=== PATIENT | female | born 1965 | race Caucasian/White ===

== ENCOUNTER 2017-12-14 16:17 | Inpatient (IN) ==
[2017-12-14] MEDS ORDERED: Sod Chloride 0.9% Inj 1,000 ML IV.CONT SCH (16:30)
--- NOTE | 2017-12-14 16:38 | ED ---
HPI General Chief Complaint: Stroke Alert Stated Complaint: Stroke Alert Time Seen by Provider: 12/14/17 16:19 Source: EMS Mode of arrival: EMS Limitations: altered mental status History of Present Illness HPI Narrative: Patient is a 52-year-old female came in as a stroke alert 4:19 PM. As per EMS report initial call was at 15:39 and they arrived on the scene at 1603 with a called a stroke alert. As per EMS report the patient was seen last normal at 3 PM went to sleep and at around 330 her had a large noise and grunting went into check on her and she was on the floor not moving not responding with flaccid right upper and lower extremities. As per EMS fire rescue on arrival got a blood pressure of 252/180 and when EMS repeated it was 280/200. The patient is not on anticoagulation and has a history of hypertension. Onset (ago): minute(s) (40) Time: 15:39 Last Observed Normal: 15:00 Timing confirmed by: spouse Location: speech, right arm, right leg and altered History of same: No Severity: severe On Anticoagulants: No Related Data Home Medications Medication Instructions Recorded Confirmed No Known Home Medications 12/14/17 12/14/17 Allergies Allergy/AdvReac Type Severity Reaction Status Date / Time No Known Allergies Allergy Unverified 12/14/17 16:23 Review of Systems ROS Unobtainable unobtainable due to mental status PMFSH Medical History Medical History HTN (hypertension) (Acute) Surgical History Surgical History Previous section (Acute) Social History Social History Substance History: No History of Abuse Second Hand Smoke Exposure: No Smoking Status: Never smoker How Often Do You Have a Drink Containing Alcohol: Never Recent Travel in [facility] within the Last 8 Weeks: No Recent Out of Country Travel within the Last 8 Weeks: No Exam Narrative Exam Narrative: GENERAL: Patient opens eyes to verbal command but does not follow any instructions. Forced gaze to the left. SKIN: Focused skin assessment warm/dry. HEAD: Atraumatic. Normocephalic. EYES: PERRLA. No scleral icterus. No injection or drainage. ENT: No nasal bleeding or discharge. Mucous membranes pink and moist. NECK: Trachea midline. No JVD. CARDIOVASCULAR: Regular rate and rhythm. No murmur appreciated. RESPIRATORY: No accessory muscle use. Clear to auscultation. Breath sounds equal bilaterally. GASTROINTESTINAL: Abdomen soft, non-tender, nondistended. Hepatic and splenic margins not palpable. MUSCULOSKELETAL: No obvious deformities. No clubbing. No cyanosis. No edema. PSYCHIATRIC: Appropriate mood and affect; insight and judgment normal. Neuro General: obtunded Cranial Nerves: PERRL and other (LEFT FACIAL DROOP) Speech: expressive aphasia and receptive aphasia Motor: other (FLACID RIGHT UPPER AND LOWER EXTREMITIES) Sensory Exam: other (responds to painful stimuli on B/L Lower extremites) DTR's: Rt Patellar: 4+ and Lt Patellar: 4+ Plantar Reflexes: Downgoing: bilateral Comatose Patient: no decerebrate rigidity and hand drop from over head - strikes face (RUE) Other: Patient with a fixed gaze to the left not crossing the midline left facial paresis. Right upper and lower extremity flaccid but responding to painful stimuli. Patient with receptive and expressive aphasia does open eyes with loud noises but does not respond to commands when asked to blink. Course Reevaluation(s) Reevaluation #1: The patient has returned from the CT suite will cancel CT angiogram appears she has large bleed associated with hypertension. Cardene drip has been already ordered and were initiating treatment. She does move all extremities at this time including the right upper lower extremity that were previously flaccid still does not cross the midline on her gaze and has a receptive and expressive aphasia. Discuss with neurology and neurosurgery. We will start the patient on mannitol. and family at bedside aware of condition and interventions. Time: 16:50 Reevaluation #2: Blood pressure at this time is Time: 17:30 Consultations Consultation #1: Neurology professional tutor Dr. Wagner returned the call. Recommend CT angios which have already been ordered. Agrees with Cardene drip if blood pressures truly elevated as per EMS. Reducing Recommends 200 cc bolus and laying her flat in the bed Time: 16:37 Consultation #2: Neurosurgery was consulted and called us back. Recommend 25 mg of IV mannitol and reduction of her blood pressure as well as ICU admission. Time: 16:50 Initial Documented Vital Signs Temperature 99.2 F 12/14/17 16:18 Pulse Rate 119 H 12/14/17 16:18 Respiratory Rate 26 H 12/14/17 16:18 Blood Pressure 260/140 H 12/14/17 16:18 Last Documented Vital Signs Temperature 99.2 F 12/14/17 16:19 Pulse Rate 94 H 12/14/17 19:36 Respiratory Rate 20 12/14/17 19:36 Blood Pressure 149/65 H 12/14/17 19:36 Pulse Oximetry 97 12/14/17 18:00 Critical Care Time Critical Care Time: Yes Total Critical Care Time: 75 Attestation: Aggregate critical care time was 75 minutes. Time to perform other separately billable procedures was not included in the critical care time. My time did not include minutes spent treating any other patients simultaneously or on activities that did not directly contribute to the patient's treatment. The services I provided to this patient were to treat and/or prevent clinically significant deterioration that could result in: . Permanent disability I provided critical care services requiring my management, as noted below: Chart data review, documentation time, medication orders and management, vital sign assessments/reviewing monitor data, ordering and reviewing lab tests, ordering and interpreting/reviewing x-rays and diagnostic studies, care of the patient and discussion of the patient with the admitting physicians. NIH Stroke Scale NIH Stroke Scale Level of Consciousness: 3-Coma / Unresponsive Orientation Questions: 2-Neither task correct Responds to Commands: 2-Neither task correct Gaze Eye Movement: 1-Partial gaze palsy (To the left) Visual Guy: 0-No visual field defect Facial Movement: 2-Partial facial palsy Motor Functions Arm LEFT: 0-No drift Motor Functions Arm RIGHT: 3-No effort against gravity Motor Functions Leg LEFT: 0-No drift Motor Functions Leg RIGHT: 0-No drift Limb Ataxia: 0-No ataxia Sensory Loss: 0-No sensory loss Best Language: 3-Mute or global aphasia Articulation: 2-Severe dysarthria Extinction or Inattention Sensory: 2-Loss 2 modalities Total: 20 Medical Decision Making MDM Narrative Medical decision making narrative: Patient with left cerebral bleeding stroke secondary to hypertensive crisis. She was started on Cardene drip with initial improvement but her blood pressures started going up again and she was given IV push of labetalol 20 mg with repeat blood pressure of 149/65 at 7:36 PM. Neurology and neurosurgery were consulted. Neurosurgery recommended mannitol IV push and I admission to the ICU. She is obviously not a TPA candidate having a hypertensive crisis and bleed. Her neurologic deficits did improve with mannitol and reduction of her blood pressure. The patient initially was not crossing the midline had a forced gaze to the left however she started turning to the right and also started moving all extremities. Still aphasic both expression and receptive however she did at some point follow commands and close eyes when prompted. Family at bedside aware of current condition. Patient will be admitted to the ICU for further evaluation and treatment. Lab Data Lab results reviewed: Yes I reviewed the patient's lab results. Result diagrams: 12/14/17 16:25 12/14/17 16:25 Lab Results 12/14/17 12/14/17 12/14/17 Range/Units 16:25 16:25 16:45 WBC 9.3 (4.0-11.0) th/mm3 RBC 5.09 (4.00-5.30) mil/mm3 Hgb 11.0 L (11.6-15.3) gm/dL POC Hgb (Calc) 11.6 (11.6-15.3) g/dL Hct 34.0 L (35.0-46.0) % POC Hct 34.0 L (35-46.0) % MCV 66.9 L (80.0-100.0) fL MCH 21.6 L (27.0-34.0) pg MCHC 32.3 (32.0-36.0) % RDW 18.2 H (11.6-17.2) % Plt Count 288 (150-450) th/mm3 MPV 7.4 (7.0-11.0) fL Neut % (Auto) 69.5 (16.0-70.0) % Lymph % (Auto) 18.0 (9.0-44.0) % [place] % (Auto) 8.3 H (0.0-8.0) % Eos % (Auto) 3.6 (0.0-4.0) % Baso % (Auto) 0.6 (0.0-2.0) % Neut # (Auto) 6.5 (1.8-7.7) th/mm3 Lymph # (Auto) 1.7 (1.0-4.8) th/mm3 [place] # (Auto) 0.8 (0.0-0.9) th/mm3 Eos # (Auto) 0.3 (0.0-0.4) th/mm3 Baso # (Auto) 0.1 (0.0-0.2) th/mm3 WBC Differential . Differential Comment Auto diff final PT (9.8-11.6) sec INR Ratio APTT (24.3-30.1) sec POC Sodium 142 (137-144) mmol/L Sodium 140 (136-145) meq/L POC Potassium 3.4 L (3.6-5.0) mmol/L Potassium 3.4 L (3.5-5.1) meq/L POC Chloride 105 (102-111) mmol/L Chloride 106 (98-107) meq/L Carbon Dioxide 25.2 (21.0-32.0) meq/L Anion Gap 9 (5-15) meq/L POC BUN 11 (5-21) mg/dL BUN 11 (7-18) mg/dL Creatinine 1.08 H (0.50-1.00) mg/dL POC Creatinine 0.9 (0.6-1.3) mg/dL Estimated GFR 53 L (>89) mL/min POC Glucose 132 H 142 H (68-110) mg/dL Random Glucose 125 H (74-106) mg/dL Calcium 8.6 (8.5-10.1) mg/dL Total Bilirubin 0.4 (0.2-1.0) mg/dL AST 32 (15-37) U/L ALT 28 (10-53) U/L Alkaline Phosphatase 80 (45-117) U/L Total Creatine Kinase 120 (26-192) U/L CK-MB (CK-2) 1.1 (0.5-3.6) ng/mL Troponin I 0.04 (0.02-0.05) ng/mL Total Protein 8.2 (6.4-8.2) g/dL Albumin 3.8 (3.4-5.0) g/dL Urine Color (Yellw/Straw) Urine Clarity (Clear) Urine pH (5.0-8.5) Ur Specific [place] (1.002-1.035) Urine Protein (Neg-Trace) mg/dL Urine Glucose (UA) (Negative) mg/dL Urine Ketones (Negative) mg/dL Urine Occult Blood (Negative) Urine Nitrate (Negative) Urine Bilirubin (Negative) Urine Urobilinogen (Less than 2) mg/dL Ur Leukocyte Esterase (Negative) Urine RBC (0-3) /hpf Urine WBC (0-5) /hpf Hyaline Casts (0-3) /lpf Urine Mucus (Occasional) /lpf Micro UA Comment Urine Culture Comments 12/14/17 12/14/17 Range/Units 17:09 17:09 WBC (4.0-11.0) th/mm3 RBC (4.00-5.30) mil/mm3 Hgb (11.6-15.3) gm/dL POC Hgb (Calc) (11.6-15.3) g/dL Hct (35.0-46.0) % POC Hct (35-46.0) % MCV (80.0-100.0) fL MCH (27.0-34.0) pg MCHC (32.0-36.0) % RDW (11.6-17.2) % Plt Count (150-450) th/mm3 MPV (7.0-11.0) fL Neut % (Auto) (16.0-70.0) % Lymph % (Auto) (9.0-44.0) % [place] % (Auto) (0.0-8.0) % Eos % (Auto) (0.0-4.0) % Baso % (Auto) (0.0-2.0) % Neut # (Auto) (1.8-7.7) th/mm3 Lymph # (Auto) (1.0-4.8) th/mm3 [place] # (Auto) (0.0-0.9) th/mm3 Eos # (Auto) (0.0-0.4) th/mm3 Baso # (Auto) (0.0-0.2) th/mm3 WBC Differential Differential Comment PT 10.2 (9.8-11.6) sec INR 1.0 Ratio APTT 26.5 (24.3-30.1) sec POC Sodium (137-144) mmol/L Sodium (136-145) meq/L POC Potassium (3.6-5.0) mmol/L Potassium (3.5-5.1) meq/L POC Chloride (102-111) mmol/L Chloride (98-107) meq/L Carbon Dioxide (21.0-32.0) meq/L Anion Gap (5-15) meq/L POC BUN (5-21) mg/dL BUN (7-18) mg/dL Creatinine (0.50-1.00) mg/dL POC Creatinine (0.6-1.3) mg/dL Estimated GFR (>89) mL/min POC Glucose (68-110) mg/dL Random Glucose (74-106) mg/dL Calcium (8.5-10.1) mg/dL Total Bilirubin (0.2-1.0) mg/dL AST (15-37) U/L ALT (10-53) U/L Alkaline Phosphatase (45-117) U/L Total Creatine Kinase (26-192) U/L CK-MB (CK-2) (0.5-3.6) ng/mL Troponin I (0.02-0.05) ng/mL Total Protein (6.4-8.2) g/dL Albumin (3.4-5.0) g/dL Urine Color Straw (Yellw/Straw) Urine Clarity Clear (Clear) Urine pH 6.0 (5.0-8.5) Ur Specific [place] 1.008 (1.002-1.035) Urine Protein 100 H (Neg-Trace) mg/dL Urine Glucose (UA) 50 (Negative) mg/dL Urine Ketones Negative (Negative) mg/dL Urine Occult Blood Small H (Negative) Urine Nitrate Negative (Negative) Urine Bilirubin Negative (Negative) Urine Urobilinogen Less than 2 (Less than 2) mg/dL Ur Leukocyte Esterase Negative (Negative) Urine RBC 1 (0-3) /hpf Urine WBC 1 (0-5) /hpf Hyaline Casts 1 (0-3) /lpf Urine Mucus Few H (Occasional) /lpf Micro UA Comment Cath-culture not ind Urine Culture Comments Cath-cult not ind Imaging Data Radiologist's impression: Chest X-Ray 12/14/17 16:19 CONCLUSION: No acute cardiopulmonary disease. Head CT 12/14/17 16:19 CONCLUSION: 1. Acute high density intraparenchymal hemorrhage centered in the left basal ganglia with mass effect and midline shift. Report was called by [Dr. Andres to Dr. Larsen at 1641 hours. ] Discharge Plan Discharge Disposition Patient Disposition: 30 Still Patient Discharge Condition Condition: Critical Discharge Details Diagnosis: Intraparenchymal hemorrhage of brain, Hypertensive crisis, Stroke, hemorrhagic Physicians Team ED Provider: Nahun Larsen Primary Care Provider: Shantell Riley Attending Provider: Juan J Hyde Other Providers: Raghavendra Wagner Discharge Interventions Interventions: Vital Signs Last Done: 12/14/17 17:05 Status ED Status: Admitted Patient
--- NOTE | 2017-12-14 16:49 | CT ---
EXAM DATE: 12/14/2017 4:38 PM EDT AGE/SEX: 52 years / Female INDICATIONS: Stroke Alert. Right sided weakness. CLINICAL DATA: This is the patient's initial encounter. Patient reports that signs and symptoms have been present for 1 day and indicates a pain score of 10/10. MEDICAL/SURGICAL HISTORY: Non-responsive. Non-responsive. RADIATION DOSE: 35.82 CTDI (mGy) COMPARISON: No prior exams available for comparison. TECHNIQUE: CT of the head without contrast. Using automated exposure control and adjustment of the mA and/or kV according to patient size, radiation dose was kept as low as reasonably achievable to ob tain optimal diagnostic quality images. DICOM format image data is available electronically for revi ew and comparison. FINDINGS: There is no acute high density intraparenchymal hemorrhage centered in the left basal ganglia measuri ng up to 3.9 x 2.5 cm in diameter with mild surrounding edema. There is mass effect and mild midline shift to the right of approximately 6 mm. There is mild effacement of the right lateral ventricle. Th e posterior fossa and brainstem appear grossly intact. Visualization is limited by streak and motion artifact. The bone windows demonstrate no evidence of underlying abnormality. CONCLUSION: 1. Acute high density intraparenchymal hemorrhage centered in the left basal ganglia with mass effec t and midline shift. Report was called by [Dr. Andres to Dr. Larsen at 1641 hours. ] Electronically signed by: Colton Andres MD 12/14/2017 4:48 PM EDT
[2017-12-14 16:51] LABS: Baso # (Auto) 0.1 th/mm3 (0.0-0.2); Baso % (Auto) 0.6 % (0.0-2.0); Eos # (Auto) 0.3 th/mm3 (0.0-0.4); Eos % (Auto) 3.6 % (0.0-4.0); Lymph # (Auto) 1.7 th/mm3 (1.0-4.8); Mean Corpuscular HGB Conc 32.3 % (32.0-36.0); Mean Corpuscular Hemoglobin 21.6 pg (27.0-34.0); Mean Corpuscular Volume 66.9 fL (80.0-100.0); Mean Platelet Volume 7.4 fL (7.0-11.0); Mono # (Auto) 0.8 th/mm3 (0.0-0.9); Mono % (Auto) 8.3 % (0.0-8.0); Neut # (Auto) 6.5 th/mm3 (1.8-7.7); Neut % (Auto) 69.5 % (16.0-70.0); Platelet Count 288 th/mm3 (150-450); Red Blood Count 5.09 mil/mm3 (4.00-5.30); Red Cell Distribution Width 18.2 % (11.6-17.2); White Blood Count 9.3 th/mm3 (4.0-11.0)
[2017-12-14 17:00] LABS: Alanine Aminotransferase 28 U/L (10-53); Albumin 3.8 g/dL (3.4-5.0); Anion Gap 9 meq/L (5-15); Aspartate Aminotransferase 32 U/L (15-37); Blood Urea Nitrogen 11 mg/dL (7-18); Calcium 8.6 mg/dL (8.5-10.1); Carbon Dioxide 25.2 meq/L (21.0-32.0); Chloride 106 meq/L (98-107); Glomerular Filtration Rate 53 mL/min (>89); Glucose,Random 125 mg/dL (74-106); Potassium 3.4 meq/L (3.5-5.1); Sodium 140 meq/L (136-145)
[2017-12-14] MEDS ORDERED: Morphine Inj 4 MG/ML Vial IV.PUSH PRN (17:00)
[2017-12-14] MEDS ORDERED: Bisacodyl 10 MG Supp RECTAL PRN (17:00)
[2017-12-14 17:04] LABS: Alkaline Phosphatase 80 U/L (45-117); Creatine Kinase 120 U/L (26-192); Total Protein 8.2 g/dL (6.4-8.2); Troponin I 0.04 ng/mL (0.02-0.05)
--- NOTE | 2017-12-14 17:16 | P.HPCC ---
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 She has been previously healthy otherwise but yesterday developed some right-sided weakness and difficulty finding words. On arrival to the emergency department she was crisis with systolic blood pressure greater than 220 and CAT scan of the head revealed a 3.9 cm left-sided parenchymal brain hemorrhage based in the basal ganglia. Blood pressure was immediately controlled with intravenous Cardene infusion and she was transferred to the intensive care unit for further evaluation. - Diagnosis (1) Intraparenchymal hemorrhage of brain (2) Hypertensive crisis Inpatient Certification: Patient will require hospitalization for at least 3 days. Estimated Total Length of Stay (Days): 5 Plans for Post Hospital Care: Not yet determined Review of Systems Unable to obtain due to impaired level of consciousness. unobtainable due to endotracheal tube PMFSH - History History Provided By: Family Member, Hand Sizer / EMT - Medical / Surgical Hx Neg / Unobtainable Medical Problems Denied: Unable to Obtain - Medical History Medical History: Medical History (Last Reviewed 12/24/17 @ 07:47 by Carlee Mancia) HTN (hypertension) - Surgical History Surgical History: Surgical History (Last Reviewed 12/24/17 @ 07:47 by Carlee Mancia) Previous section - Family History Family History: Family History (Last Updated 12/24/17 @ 15:23 by Zandra Flores MD) Mother Family history of hypertension Brother Melanoma Other Family history unobtainable - Social History I have reviewed the patient's Social History: Yes - Tobacco History Second Hand Smoke Exposure: No Tobacco Use In Past 30 Days: No Smoking Status: Never smoker - Alcohol History How Often Do You Have a Drink Containing Alcohol: Never - Substance Use History Substance History: No History of Abuse - Travel History History of Recent Travel: No Recent Travel in the [place] Within the Last 8 Weeks: No Recent Travel Out of the Country Within the Last 8 Weeks: No - Immunization History Tetanus Immunization: Never Vaccinated Hx Influenza Vaccine This Season: Unable to Assess Pediatric Immunizations Up to Date: Yes Medications and Allergies Active Medications: Active Medications Al Hydroxide/Mg Hydroxide (Milk Of Magnesia Liq) 30 ml PO Q12H PRN PRN Reason: Mild Constipation Albuterol (Duoneb Neb (Prn)) 1 ampul NEB Q6HR NEB [facility] Bisacodyl (Dulcolax Supp) 10 mg RECTAL DAILY PRN PRN Reason: SEVERE CONSITIPATION Chlorhexidine Gluconate (Chlorhexidine 2% Cloth) 3 pack TOPICAL DAILY@0400 JOAO Stop: 12/20/17 03:59 Chlorhexidine Gluconate (Chlorhexidine 2% Cloth) 3 pack TOPICAL DAILY@0400 PRN PRN Reason: Extra cloth needed Stop: 12/20/17 03:59 Famotidine (Pepcid Pf Inj) 20 mg IV.PUSH Q12HR JOAO Sodium Chloride (Ns Inj) 1,000 mls @ 70 mls/hr IV.CONT .[id number] JOAO Stop: 12/15/17 06:47 Nicardipine HCl 25 mg/ Sodium (Chloride) 250 mls @ 50 mls/hr IV.CONT TITRATE PRN; Protocol PRN Reason: Per Protocol Sodium Chloride (Ns Inj) 1,000 mls @ 30 mls/hr IV.CONT .Q24H JOAO Lactulose (Lactulose Liq) 30 ml PO DAILY PRN PRN Reason: SEVERE CONSITIPATION Morphine Sulfate (Morphine Inj) 2 mg IV.PUSH Q2H PRN PRN Reason: PAIN SCALE 6 TO 10 Ondansetron HCl (Zofran Inj) 4 mg IV.PUSH Q6H PRN PRN Reason: NAUSEA OR VOMITING Senna/Docusate Sodium (Cassidy-Colace) 1 tab PO BID [facility] Sennosides (Senokot) 17.2 mg PO Q12H PRN PRN Reason: Moderate Constipation Sodium Chloride (Ns Flush) 2 ml IV.FLUSH PRN PRN PRN Reason: FLUSH AFTER USING IV ACCESS Sodium Chloride (Ns Flush) 2 ml IV.FLUSH BID [facility] Sodium Chloride (Ns Flush) 2 ml IV.FLUSH PRN PRN PRN Reason: FLUSH AFTER USING IV ACCESS Allergies Allergy/AdvReac Type Severity Reaction Status Date / Time No Known Allergies Allergy Unverified 12/14/17 16:23 Home Medications Medication Instructions Recorded Confirmed Type No Known Home Medications 12/14/17 12/14/17 History Results - Labs CBC & Chem 7: 12/26/17 05:10 12/26/17 05:10 Labs: Short CBC 12/14/17 Range/Units 16:25 WBC 9.3 (4.0-11.0) th/mm3 Hgb 11.0 L (11.6-15.3) gm/dL Hct 34.0 L (35.0-46.0) % Plt Count 288 (150-450) th/mm3 BMP 12/14/17 16:25 Sodium 140 Potassium 3.4 L Chloride 106 Carbon Dioxide 25.2 BUN 11 Creatinine 1.08 H Calcium 8.6 Cardiac Enzymes 12/14/17 Range/Units 16:25 Total Creatine Kinase 120 (26-192) U/L Troponin I 0.04 (0.02-0.05) ng/mL Liver Function 12/14/17 Range/Units 16:25 Total Bilirubin 0.4 (0.2-1.0) mg/dL AST 32 (15-37) U/L ALT 28 (10-53) U/L Alkaline Phosphatase 80 (45-117) U/L Albumin 3.8 (3.4-5.0) g/dL - Imaging Impressions Head CT 12/14/17 16:19 CONCLUSION: 1. Acute high density intraparenchymal hemorrhage centered in the left basal ganglia with mass effect and midline shift. Report was called by [Dr. Andres to Dr. Larsen at 1641 hours. ] Exam Vital signs: Vital Signs 12/14/17 16:18 12/14/17 16:19 Temperature 99.2 F Pulse Rate 119 H Respiratory Rate 26 H Blood Pressure 260/140 H Pulse Oximetry 98 Intake & Output 12/13/17 12/14/17 12/14/17 18:59 06:59 18:59 Weight 94.055 kg Narrative: Physical examination: Head: Normocephalic, atraumatic. Neck: Supple, airway patent, no obstruction. Lungs: Clear, no adventitious sounds, comfortable respiratory pattern Heart: Normal S1-S2, 3/6 systolic murmur heard along the left sternal border and into the 8. No JVD. Abdomen: Large, soft, no guarding, bowel sounds are present. Extremities: Warm, well-perfused, no peripheral edema. Neuro: Pupils are 2 mm in both react to light. Tracks with eyes. Moves 4 limbs though weaker on the right. Caprini VTE Risk Assessment Caprini VTE Risk Assessment: Moderate/High Risk (score >= 2) VTE Pharmacological Exception Reason: Active bleeding Caprini Risk Assessment Model: Point Value = 1 Point Value = 2 Point Value = 3 Point Value = 5 Age 41-60 Minor surgery BMI > 25 kg/m2 Swollen legs Varicose veins or History of unexplained or recurrent spontaneous Oral contraceptives or hormone replacement Sepsis (< 1 month) Serious lung disease, including pneumonia (< 1 month) Abnormal pulmonary function Acute myocardial infarction Congestive heart failure (< 1 month) History of inflammatory bowel disease Medical patient at bed rest Age 61-74 Arthroscopic surgery Major open surgery (> 45 min) Laparoscopic surgery (> 45 min) Malignancy Confined to bed (> 72 hours) Immobilizing plaster cast Central venous access Age >= 75 History of VTE Family history of VTE Factor V Leiden Prothrombin [id number] Lupus anticoagulant Anticardiolipin antibodies Elevated serum homocysteine Heparin-induced thrombocytopenia Other congenital or acquired thrombophilia Stroke (< 1 month) Elective arthroplasty Hip, pelvis, or leg fracture Acute spinal cord injury (< 1 month) Prophylaxis Regimen: Total Risk Factor Score Risk Level Prophylaxis Regimen 0-1 Low Early ambulation 2 Moderate Order ONE of the following: *Sequential Compression Device (SCD) *Heparin 5000 units SQ BID 3-4 Higher Order ONE of the following medications: *Heparin 5000 units SQ TID *Enoxaparin/Lovenox 40 mg SQ daily (WT < 150 kg, CrCl > 30 mL/min) *Enoxaparin/Lovenox 30 mg SQ daily (WT < 150 kg, CrCl > 10-29 mL/min) *Enoxaparin/Lovenox 30 mg SQ BID (WT < 150 kg, CrCl > 30 mL/min) AND/OR *Sequential Compression Device (SCD) 5 or more Highest Order ONE of the following medications: *Heparin 5000 units SQ TID (Preferred with Epidurals) *Enoxaparin/Lovenox 40 mg SQ daily (WT < 150 kg, CrCl > 30 mL/min) *Enoxaparin/Lovenox 30 mg SQ daily (WT < 150 kg, CrCl > 10-29 mL/min) *Enoxaparin/Lovenox 30 mg SQ BID (WT < 150 kg, CrCl > 30 mL/min) AND *Sequential Compression Device (SCD) Assessment and Plan - Problem List (1) Intraparenchymal hemorrhage of brain Code(s): I61.9 - Nontraumatic intracerebral hemorrhage, unspecified Status: Acute (2) Hypertensive crisis Code(s): I16.9 - Hypertensive crisis, unspecified Status: Acute - Assessment and Plan Plan: Plan: 1. Maintain BP < 140/90 with cardene infusion. 2. Serial neurologic exam. 3. CTA brain. 4. Pepcid for GI ulcer prophylaxis. 5. Chemical DVT prophylaxis contraindicated because of active bleed. 6. NIH stroke scale. 7. Swallow evaluation.. 8. PT, OT consult. 9. Supplemental O2 to maintain sats greater than 95%. Overall impression: Acute hypertensive intraparenchymal hemorrhage in the left basal ganglia. This is a large bleed and a particularly worrisome spot and her prognosis is guarded. We will keep good immediate control of her blood pressure , follow her airway and swallowing closely, and review with the neurologic specialties. Critical care 40 minutes Code Status: DNR Discussed Condition With: Nurse
[2017-12-14 17:17] LABS: Creatine Kinase MB 1.1 ng/mL (0.5-3.6)
--- NOTE | 2017-12-14 17:19 | XR ---
EXAM DATE: 12/14/2017 5:15 PM EDT AGE/SEX: 52 years / Female INDICATIONS: Right-sided weakness and intracranial hemorrhage. CLINICAL DATA: This is the patient's initial encounter. Patient reports that signs and symptoms have been present for 1 day and indicates a pain score of Nonresponsive. MEDICAL/SURGICAL HISTORY: Non-responsive. Non-responsive. COMPARISON: No prior exams available for comparison. FINDINGS: A single AP view of the chest demonstrates the lungs to be symmetrically aerated without evidence of mass, infiltrate or effusion. The cardiomediastinal contours are unremarkable. Osseous structures a re intact. CONCLUSION: No acute cardiopulmonary disease. Electronically signed by: Colton Andres MD 12/14/2017 5:18 PM EDT
[2017-12-14] MEDS: niCARdipine Inj 25 MG in Sodium Chlor 0.9% Inj 240 ML IV.CONT PRN ×4 (17:23→23:07)
[2017-12-14 17:33] LABS: Activated Partial Thrombo Time 26.5 sec (24.3-30.1); Prothrombin Time 10.2 sec (9.8-11.6)
[2017-12-14 17:41] LABS: Bilirubin,Urine Negative (Negative); Clarity,Urine Clear (Clear); Color,Urine Straw (Yellw/Straw); Glucose,Urine (UA) 50 mg/dL (Negative); Hyaline Casts,Urine 1 /lpf (0-3); Leukocyte Esterase,Urine Negative (Negative); Mucus,Urine Few /lpf (Occasional); Nitrite,Urine Negative (Negative); Specific Gravity,Urine 1.008 (1.002-1.035)
--- NOTE | 2017-12-14 17:42 | P.CONNS ---
History of Present Illness Service: Neurosurg Consult date: 12/14/17 Requesting Physician: Juan J Hyde Reason for Consult: ICH Primary Care Provider: Shantell Riley MD Family Provider: Shantell Riley MD History of Present Illness: This is a 52 y/o female with long-standing history of arterial hypertension. Apparently. other than her hypertension she has been previously healthy. Apparently yesterday developed right-sided weakness and difficulty finding words. On arrival to the emergency department she was on hypertrensive crisis, with systolic blood pressure greater than 220, not moving her right side. No seizure activity reported. No tonic-clonic movements. No incontinence of stool or urine. CT scan of the head revealed a 3.9 cm left-sided parenchymal brain hemorrhage based in the basal ganglia. Blood pressure was immediately controlled with intravenous Cardene infusion. Neurosurgical consultation was requested Review of Systems unobtainable due to mental condition PMFSH - History History Provided By: Family Member, Third Cook / EMT - Medical History Medical History: Medical History (Last Reviewed 12/16/17 @ 14:47 by Trever Cyr MD) HTN (hypertension) - Surgical History Surgical History: Surgical History (Last Reviewed 12/16/17 @ 14:47 by Trever Cyr MD) Previous section - Family History Family History: Family History (Last Updated 12/16/17 @ 14:47 by Trever Cyr MD) Other Family history unobtainable - Tobacco History Second Hand Smoke Exposure: No Tobacco Use In Past 30 Days: No Smoking Status: Never smoker - Alcohol History How Often Do You Have a Drink Containing Alcohol: Never - Substance Use History Substance History: No History of Abuse - Travel History Recent Travel in the [place] Within the Last 8 Weeks: No Recent Travel Out of the Country Within the Last 8 Weeks: No - Immunization History Tetanus Immunization: Never Vaccinated Hx Influenza Vaccine This Season: Unable to Assess Medications and Allergies Active Medications: Active Medications Al Hydroxide/Mg Hydroxide (Milk Of Magnesia Liq) 30 ml PO Q12H PRN PRN Reason: Mild Constipation Albuterol (Duoneb Neb (Jered)) 1 ampul NEB Q6HR NEB JERED Bisacodyl (Dulcolax Supp) 10 mg RECTAL DAILY PRN PRN Reason: SEVERE CONSITIPATION Chlorhexidine Gluconate (Chlorhexidine 2% Cloth) 3 pack TOPICAL DAILY@0400 JERED Stop: 12/20/17 03:59 Chlorhexidine Gluconate (Chlorhexidine 2% Cloth) 3 pack TOPICAL DAILY@0400 PRN PRN Reason: Extra cloth needed Stop: 12/20/17 03:59 Famotidine (Pepcid Pf Inj) 20 mg IV.PUSH Q12HR JERED Sodium Chloride (Ns Inj) 1,000 mls @ 70 mls/hr IV.CONT .[id number] [facility] Stop: 12/15/17 06:47 Last Admin: 12/14/17 17:20 Dose: 70 mls/hr Nicardipine HCl 25 mg/ Sodium (Chloride) 250 mls @ 50 mls/hr IV.CONT TITRATE PRN; Protocol PRN Reason: Per Protocol Last Admin: 12/14/17 17:23 Dose: 5 mg/hr, 50 mls/hr Sodium Chloride (Ns Inj) 1,000 mls @ 30 mls/hr IV.CONT .Q24H [facility] Lactulose (Lactulose Liq) 30 ml PO DAILY PRN PRN Reason: SEVERE CONSITIPATION Morphine Sulfate (Morphine Inj) 2 mg IV.PUSH Q2H PRN PRN Reason: PAIN SCALE 6 TO 10 Ondansetron HCl (Zofran Odt) 4 mg PO Q6H PRN PRN Reason: NAUSEA OR VOMITING Senna/Docusate Sodium (Cassidy-Colace) 1 tab PO BID [facility] Sennosides (Senokot) 17.2 mg PO Q12H PRN PRN Reason: Moderate Constipation Sodium Chloride (Ns Flush) 2 ml IV.FLUSH PRN PRN PRN Reason: FLUSH AFTER USING IV ACCESS Sodium Chloride (Ns Flush) 2 ml IV.FLUSH BID [facility] Allergies Allergy/AdvReac Type Severity Reaction Status Date / Time No Known Allergies Allergy Unverified 12/14/17 16:23 Home Medications Medication Instructions Recorded Confirmed Type No Known Home Medications 12/14/17 12/14/17 History Exam Vital signs: Vital Signs 12/14/17 16:18 12/14/17 16:19 Temperature 99.2 F Pulse Rate 119 H Respiratory Rate 26 H Blood Pressure 260/140 H Pulse Oximetry 98 Intake & Output 12/13/17 12/14/17 12/14/17 18:59 06:59 18:59 Weight 94.055 kg Narrative: Head: Normocephalic, atraumatic. Neck: Supple, airway patent, no obstruction. Extremities: Warm, well-perfused, no peripheral edema. Neuro: Pupils are 2 mm in both react to light. Tracks with eyes. Extra-ocular movements are intact. Face musculature appeared asymmetrical with a right facial drop. Face sensation , olfaction, and hearing cannot be adequately assessed due to the patient's neurological condition. The patient has a corneal reflex. The patient has a gag reflex. Cervical Spine: The patient's neck is soft, supple, without nuchal rigidity. Motor: His muscle tone and bulk are normal. He moves purposefully but has a severe right hemiparesis Reflexes: Deep tendon reflexes are symmetrical in the upper and lower extremities. silent response to plantar stimulation. There is no clonus Sensory: On examination there there is response to painful stimuli, localizing with her left upper and lower extremities. Cerebellar: Examination cannot be adequately assessed due to the patient's neurological condition. Lungs: clear Heart: Regular rhythm and rate Skin: warm and dry Results - Laboratory Findings CBC and BMP: 12/15/17 03:32 12/16/17 06:20 Abnormal lab findings: Abnormal Labs 12/14/17 12/14/17 12/14/17 16:25 16:25 16:45 Hgb 11.0 L Hct 34.0 L POC Hct 34.0 L MCV 66.9 L MCH 21.6 L RDW 18.2 H Tompkins % (Auto) 8.3 H POC Potassium 3.4 L Potassium 3.4 L Creatinine 1.08 H Estimated GFR 53 L POC Glucose 132 H 142 H Random Glucose 125 H Assessment and Plan - Plan (1) Intraparenchymal hemorrhage of brain Code(s): I61.9 - Nontraumatic intracerebral hemorrhage, unspecified Status: Acute (2) Hypertensive crisis Code(s): I16.9 - Hypertensive crisis, unspecified Status: Acute (3) Stroke, hemorrhagic Code(s): I61.9 - Nontraumatic intracerebral hemorrhage, unspecified Status: Acute I reviewed her radiological studeis Chest X-Ray 12/14/17 16:19 CONCLUSION: No acute cardiopulmonary disease. Head CT 12/14/17 16:19 CONCLUSION: 1. Acute high density intraparenchymal hemorrhage centered in the left basal ganglia with mass effect and midline shift. Neuro: neuro checks in a serial fashion. No surgical procedure is indicated. HTN: cardene drip to keep sbp less than 150 neurology consult Pulmonary: aggressive pulmonary toilette, nasotracheal suction, and breathing treatments with nebulizers. Daily PT and OT Renal: monitor closely urine output, BUN and creatinine Endocrine: Continue to Monitor serial Acu checks and SSI as needed in detail ID continue to monitor for signs of infection Continue Protonix for stress ulcer prophylaxis Continue Joe hose and SCD's for DVT prophylaxis Further recommendations will be provided depending on the patient's clinical evaluation and follow up studies.
[2017-12-14] MEDS ORDERED: Labetalol HCl Inj 100 MG/20 ML Vial IV.PUSH ONE (18:12)
[2017-12-14] MEDS: Famotidine PF Inj 20 MG/2 ML Vial IV.PUSH SCH (21:01)
[2017-12-14] MEDS: Sod Chloride 0.9% Inj 1,000 ML IV.CONT SCH (21:01)
[2017-12-14] MEDS: Senna/Docusate Sodium 8.6/50 MG Tablet PO SCH (21:56)
[2017-12-14] MEDS ORDERED: Labetalol HCl Inj 100 MG/20 ML Vial IV.PUSH PRN (22:46)
[2017-12-15] MEDS ORDERED: Etomidate Inj 40 MG/20 ML Vial IV.PUSH ONE (00:26)
[2017-12-15] MEDS ORDERED: Etomidate Inj 20 MG/10 ML Ampul IV.PUSH ONE (00:29)
[2017-12-15] MEDS ORDERED: Propofol Inj 500 MG/50 ML Vial ONE (00:45)
--- NOTE | 2017-12-15 01:23 | P.PCN ---
Date of procedure: 12/15/17 Procedure: Endotracheal Intubation A time-out was completed verifying correct patient, procedure, site, positioning , and special equipment if applicable. The patient was placed in a flat position. Sedation was obtained using Etomidate 20mg. The patient was easily ventilated using an ambu bag. The [employer]/ MAC 4 BLADE was used and inserted into the oropharynx at which time there was a Grade 1 view of the vocal cords. A 8-chinese endotracheal tube was inserted and visualized going through the vocal cords. The stylette was removed. Colorimetric change was visualized on the CO2 meter. Breath sounds were heard in both lung cartwright equally. The endotracheal tube was placed at 23 cm, measured at the teeth. A chest x-ray was ordered to assess for pneumothorax and verify endotrachealtube placement. Estimated Blood Loss: 0 The patient tolerated the procedure well and there were no complications.
--- NOTE | 2017-12-15 01:24 | P.PCN ---
Date of procedure: 12/15/17 Procedure: Central line placement A time-out was completed verifying correct patient, procedure, site, positioning , and special equipment if applicable. The patient was placed in a dependent position appropriate for central line placement based on the vein to be cannulated. The patients right shoulder was prepped and draped in sterile fashion. 1% Lidocaine was used to anesthetize the surrounding skin area. A triple lumen 9-Kinyarwanda Cordis catheter was introduced into the the right subclavian vein using the Seldinger technique. The catheter was threaded smoothly over the guide wire and appropriate blood return was obtained. Each lumen of the catheter was evacuated of air and flushed with sterile saline. The catheter was then sutured in place to the skin and a sterile dressing applied. Perfusion to the extremity distal to the point of catheter insertion was checked and found to be adequate. Estimated Blood Loss: 1ml The patient tolerated the procedure well and there were no complications. Anesthesia: local
--- NOTE | 2017-12-15 01:26 | P.PCN ---
Date of procedure: 12/15/17 Procedure: Arterial line placement A time-out was completed verifying correct patient, procedure, site, positioning , and special equipment if applicable. Allens test was performed to ensure adequate perfusion. The patients right wrist was prepped and draped in sterile fashion. 1% Lidocaine was used to anesthetize the area. A 18G Arrow arterial line was introduced into the radial artery. The catheter was threaded over the guide wire and the needle was removed with appropriate pulsatile blood return. The catheter was then sutured in place to the skin and a sterile dressing applied. Perfusion to the extremity distal to the point of catheter insertion was checked and found to be adequate. Estimated Blood Loss: 1ml The patient tolerated the procedure well and there were no complications. Anesthesia: local
--- NOTE | 2017-12-15 02:01 | XR ---
EXAM DATE: 12/15/2017 1:47 AM EDT AGE/SEX: 52 years / Female INDICATIONS: Central line placement. CLINICAL DATA: This is the patient's initial encounter. Patient reports that signs and symptoms have been present for 1 day and indicates a pain score of Nonresponsive. MEDICAL/SURGICAL HISTORY: Non-responsive. Non-responsive. COMPARISON: [facility] – [place]ST 1V SINGLE AP, 12/14/2017. . FINDINGS: ET tube is in the proximal right mainstem bronchus. There is an NGT coursing beyond the GE junction. Right subclavian central line tip in the proximal SVC. Near-complete opacification of the left hemith orax. Right lung is clear. Cardiomediastinal contours are stable. Remainder of exam is unchanged. CONCLUSION: 1. Right mainstem intubation. 2. NGT beyond the GE junction. 3. Right subclavian central line with tip in the central SVC. No pneumothorax. 4. Complete opacification of the left hemithorax. Electronically signed by: Godwin Eddy MD 12/15/2017 2:00 AM EDT
[2017-12-15 02:02] LABS: ABG Base Excess -2.9 mmol/L (-2-2); ABG PCO2 32 mmHg (38-42); ABG PO2 274 mmHg (61-120)
[2017-12-15] MEDS: niCARdipine Inj 50 MG in Sodium Chlor 0.9% Inj 230 ML IV.CONT PRN ×5 (02:20→21:25)
[2017-12-15] MEDS: Propofol 1000 mg/100 ml Inj 1,000 MG/100 ML BOTTLE IV.CONT PRN ×7 (02:30→22:51)
[2017-12-15 03:51] LABS: Baso % (Auto) 0.3 % (0.0-2.0); Hemoglobin 9.4 gm/dL (11.6-15.3); Lymph # (Auto) 0.7 th/mm3 (1.0-4.8); Lymph % (Auto) 6.1 % (9.0-44.0); Mean Corpuscular HGB Conc 32.4 % (32.0-36.0); Mean Corpuscular Hemoglobin 21.3 pg (27.0-34.0); Mean Corpuscular Volume 65.8 fL (80.0-100.0); Mean Platelet Volume 7.3 fL (7.0-11.0); Mono # (Auto) 0.6 th/mm3 (0.0-0.9); Mono % (Auto) 5.2 % (0.0-8.0); Neut % (Auto) 88.4 % (16.0-70.0); Platelet Count 310 th/mm3 (150-450); Red Blood Count 4.41 mil/mm3 (4.00-5.30); Red Cell Distribution Width 17.7 % (11.6-17.2); White Blood Count 11.4 th/mm3 (4.0-11.0)
[2017-12-15] MEDS ORDERED: Chlorhexidine Gluconate 2% 1 Pack (2 Cloths) TOPICAL PRN (04:00)
[2017-12-15 04:11] LABS: Calcium 7.9 mg/dL (8.5-10.1); Carbon Dioxide 25.3 meq/L (21.0-32.0); Magnesium 1.8 mg/dL (1.5-2.5); Phosphorus 2.9 mg/dL (2.5-4.9); Potassium 3.8 meq/L (3.5-5.1)
[2017-12-15] MEDS: Chlorhexidine Gluconate 2% 1 Pack (2 Cloths) TOPICAL SCH (04:32)
[2017-12-15] MEDS: Famotidine PF Inj 20 MG/2 ML Vial IV.PUSH SCH ×2 (08:32→20:40)
[2017-12-15] MEDS: Senna/Docusate Sodium 8.6/50 MG Tablet PO SCH ×2 (08:33→20:40)
[2017-12-15] MEDS ORDERED: Potassium Chlor 40 mEq Premix 40 MEQ/100 ML PIGGYBACK IV.SIG PRN ×2 (11:07)
[2017-12-15] MEDS ORDERED: Potassium Chloride 25 MEQ Effervescent Tablet PO PRN (11:07)
[2017-12-15] MEDS ORDERED: Potassium Chlor 20 mEq Premix 20 MEQ/100 ML PIGGYBACK IV.SIG PRN ×2 (11:07)
[2017-12-15] MEDS ORDERED: Potassium Phosphate Inj 30 MMOL in Sodium Chlor 0.9% Inj 250 ML IV.SIG PRN (11:07)
[2017-12-15] MEDS ORDERED: Potassium Phosphate 500 MG Soluble Tablet PO PRN ×2 (11:07)
[2017-12-15] MEDS ORDERED: Magnesium Oxide 400 MG Tablet PO PRN (11:07)
[2017-12-15] MEDS ORDERED: Sodium Phosphate Inj 30 MMOL in Sodium Chlor 0.9% Inj 250 ML IV.SIG PRN (11:07)
[2017-12-15] MEDS ORDERED: Magnesium Sulfate Inj 2 GM in Sodium Chlor 0.9% Inj 96 ML IV.SIG PRN (11:07)
[2017-12-15] MEDS ORDERED: Magnesium Sulfate Inj 4 GM in Sodium Chlor 0.9% Inj 92 ML IV.SIG PRN (11:07)
--- NOTE | 2017-12-15 11:25 | P.PNCC ---
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 She has been previously healthy otherwise but yesterday developed some right-sided weakness and difficulty finding words. On arrival to the emergency department she was crisis with systolic blood pressure greater than 220 and CAT scan of the head revealed a 3.9 cm left-sided parenchymal brain hemorrhage based in the basal ganglia. Blood pressure was immediately controlled with intravenous Cardene infusion and she was transferred to the intensive care unit for further evaluation. 12/15: Unable to protect her airway last night and required endotracheal intubation and mechanical ventilation. Blood pressure control has been acceptable with Cardene. Lengthy discussion with her at the bedside this morning. He states quite clearly that she would be opposed to long-term support with the ventilator. He understands that the short-term use is not in conflict with her wishes. Objective Vital Signs / I&O: Vital Signs 12/14/17 16:18 12/14/17 16:19 12/14/17 16:55 Temperature 99.2 F 99.2 F Pulse Rate 119 H 119 H Respiratory Rate 26 H 26 H Blood Pressure 260/140 H 260/140 H 128/90 Pulse Oximetry 98 12/14/17 17:04 12/14/17 17:05 12/14/17 17:06 Temperature Pulse Rate 114 H 106 H 122 H Respiratory Rate 23 20 25 H Blood Pressure 160/120 H 128/90 170/120 H Pulse Oximetry 98 98 12/14/17 17:15 12/14/17 17:32 12/14/17 18:00 Temperature Pulse Rate 133 H 131 H Respiratory Rate 26 H 22 Blood Pressure 239/131 H 190/88 H 205/73 H Pulse Oximetry 99 97 12/14/17 18:10 12/14/17 18:20 12/14/17 18:30 Temperature Pulse Rate 127 H 114 H 128 H Respiratory Rate 23 26 H 21 Blood Pressure 224/100 H 195/7 H 168/71 H Pulse Oximetry 12/14/17 18:32 12/14/17 19:36 12/14/17 20:00 Temperature Pulse Rate 126 H 94 H 86 Respiratory Rate 20 20 Blood Pressure 168/71 H 149/65 H 146/72 H Pulse Oximetry 98 12/14/17 20:29 12/14/17 22:00 12/14/17 23:00 Temperature 98.5 F Pulse Rate 95 H 115 H 96 H Respiratory Rate 18 19 15 Blood Pressure 179/79 H 150/65 H Pulse Oximetry 99 100 96 12/15/17 00:00 12/15/17 00:23 12/15/17 00:56 Temperature 98.5 F Pulse Rate 97 H Respiratory Rate 18 16 Blood Pressure 155/65 H Pulse Oximetry 98 97 100 12/15/17 01:00 12/15/17 02:00 12/15/17 03:00 Temperature Pulse Rate 76 96 H 96 H Respiratory Rate 16 18 20 Blood Pressure 106/55 L 162/66 H 123/55 L Pulse Oximetry 97 100 100 12/15/17 03:43 12/15/17 03:44 12/15/17 04:00 Temperature 99.2 F Pulse Rate 104 H 93 H Respiratory Rate 22 22 16 Blood Pressure 138/59 L Pulse Oximetry 100 100 12/15/17 06:00 12/15/17 07:50 12/15/17 08:00 Temperature 98.5 F 99.4 F Pulse Rate 97 H 98 H 101 H Respiratory Rate 18 19 16 Blood Pressure 155/65 H Pulse Oximetry 98 96 12/15/17 09:00 12/15/17 10:00 Temperature Pulse Rate 110 H 77 Respiratory Rate Blood Pressure Pulse Oximetry Intake & Output 12/14/17 12/15/17 12/15/17 18:59 06:59 18:59 Intake Total 1700 / 1700 350 / 350 Output Total 2500 / 2500 Balance -800 / -800 350 / 350 Weight 94.055 kg 96.2 kg Intake: IV 1700 / 1700 350 / 350 Diprivan 1000 mg/100 ml Inj 1, 100 / 100 100 / 100 000 mg In 100 ml @ 5 MCG/KG/MIN 2.822 mls/hr IV.CONT TITRATE PRN Rx#:[id number] NS Inj 1,000 ML @ 70 mls/hr IV. 350 / 350 CONT .[id number] JOAO Rx#:[id number] Cardene Inj 50 MG In NS Inj 230 1250 / 1250 250 / 250 ML @ 5 MG/HR 25 mls/hr IV.CONT TITRATE PRN Rx#:[id number] Output: Urine 700 / 700 Urine Amount (Catheter) 1700 / 1700 Indwelling Urethral Catheter 1700 / 1700 Gastric Drainage 100 / 100 Right Nare Nasogastric Tube 100 / 100 Other: # Bowel Movements 0 Weight On Admission 97.6 kg Result Diagrams: 12/15/17 03:32 12/15/17 03:32 Imaging: - Imaging Impressions Head CT 12/14/17 16:19 CONCLUSION: 1. Acute high density intraparenchymal hemorrhage centered in the left basal ganglia with mass effect and midline shift. Report was called by [Dr. Andres to Dr. Larsen at 1641 hours. ] Exam Vital signs: Narrative: Physical examination: Head: Normocephalic, atraumatic. Neck: Supple, airway patent, no obstruction. Lungs: Clear, no adventitious sounds, comfortable respiratory pattern Heart: Normal S1-S2, 3/6 systolic murmur heard along the left sternal border and into the 8. No JVD. Abdomen: Large, soft, no guarding, bowel sounds are present. Extremities: Warm, well-perfused, no peripheral edema. Neuro: Pupils are 1 mm in both react to light. Sedated for BP control. Assessment and Plan - Problem List (1) Intraparenchymal hemorrhage of brain Code(s): I61.9 - Nontraumatic intracerebral hemorrhage, unspecified Status: Acute (2) Hypertensive crisis Code(s): I16.9 - Hypertensive crisis, unspecified Status: Acute (3) Stroke, hemorrhagic Code(s): I61.9 - Nontraumatic intracerebral hemorrhage, unspecified Status: Acute - Assessment and Plan Plan: Plan: 1. Maintain BP < 140/90 with cardene infusion. 2. Serial neurologic exam. 3. PRVC vent mode. 4. Pepcid for GI ulcer prophylaxis. 5. Chemical DVT prophylaxis contraindicated because of active bleed. 6. NIH stroke scale. 7. Swallow evaluation.. 8. PT, OT consult. 9. Supplemental O2 to maintain sats greater than 95%. 10. Repeat head CT today. 11. Start oral BP meds. Overall impression: Acute hypertensive intraparenchymal hemorrhage in the left basal ganglia. This is a large bleed and a particularly worrisome spot and her prognosis is guarded. We will keep good immediate control of her blood pressure , follow the progression of her hemorrhage, and attempt to wean her from the chemical ventilation. Presently we cannot separate her from the ventilator. Critical care 43 minutes
[2017-12-15] MEDS: Metoprolol Tartrate 50 MG Tablet PO SCH ×2 (13:27→20:39)
[2017-12-15] MEDS: Lisinopril 5 MG Tablet PO SCH (13:27)
--- NOTE | 2017-12-15 17:16 | ECG ---
Date Performed: 12/14/2017 Time Performed: 22:21:33 PTAGE: 52 years EKG: Sinus rhythm LEFT VENTRICULAR HYPERTROPHY AND ST-T CHANGE CONSIDER INFEROLATERAL ISCHEMIA ABNORMAL ECG NO PREVIOUS TRACING DOCTOR: Manolo Michael Interpretating Date/Time 12/15/2017 17:15:15
[2017-12-15] MEDS: Sod Chloride 0.9% Inj 1,000 ML IV.CONT SCH (18:55)
[2017-12-16] MEDS: Propofol 1000 mg/100 ml Inj 1,000 MG/100 ML BOTTLE IV.CONT PRN ×7 (01:35→22:43)
[2017-12-16] MEDS: Chlorhexidine Gluconate 2% 1 Pack (2 Cloths) TOPICAL SCH (04:56)
--- NOTE | 2017-12-16 06:07 | CT ---
EXAM DATE: 12/16/2017 5:59 AM EDT AGE/SEX: 52 years / Female INDICATIONS: Follow up hemorrhage. CLINICAL DATA: This is the patient's subsequent encounter. Patient reports that signs and symptoms h ave been present for 1 day and indicates a pain score of Nonresponsive. MEDICAL/SURGICAL HISTORY: Hypertension. section. RADIATION DOSE: 33.71 CTDI (mGy) COMPARISON: [facility] – [place], CT HEAD W/O CONTRAST, 12/14/2017. . TECHNIQUE: CT of the head without contrast. Using automated exposure control and adjustment of the mA and/or kV according to patient size, radiation dose was kept as low as reasonably achievable to ob tain optimal diagnostic quality images. DICOM format image data is available electronically for revi ew and comparison. FINDINGS: Evolving left basal ganglia interparenchymal hemorrhage which now measures 4.8 x 2.2 cm in comparison to 4.3 x 2.8 cm on prior exam. Persistent surrounding vasogenic edema with continued mass effect and stable 6 mm [id number] subfalcine herniation. Left lateral ventricle is moderately effaced. Other brizuela, ventricles are stable without evidence for hydrocephalus. Brainstem and cerebellum are intact. No intercurrent hemorrhage. Remainder of the exam is unchanged. CONCLUSION: 1. Evolving left basal ganglia hemorrhage with stable 6 mm [id number] subfalcine shift. 2. No intercurrent hemorrhage or hydrocephalus. . Electronically signed by: Godwin Eddy MD 12/16/2017 6:05 AM EDT
[2017-12-16 07:16] LABS: % Iron Saturation 3.9 % (20-50); Calcium 7.9 mg/dL (8.5-10.1); Carbon Dioxide 22.2 meq/L (21.0-32.0); Potassium 3.5 meq/L (3.5-5.1)
[2017-12-16] MEDS: niCARdipine Inj 50 MG in Sodium Chlor 0.9% Inj 230 ML IV.CONT PRN ×2 (07:22→19:21)
[2017-12-16 07:41] LABS: Folate 6.5 ng/mL (3.1-17.5)
[2017-12-16] MEDS: Sod Chloride 0.9% Inj 1,000 ML IV.CONT SCH ×2 (08:13→17:25)
[2017-12-16] MEDS: Famotidine PF Inj 20 MG/2 ML Vial IV.PUSH SCH ×2 (09:20→21:16)
[2017-12-16] MEDS: Metoprolol Tartrate 50 MG Tablet PO SCH ×2 (09:20→21:17)
[2017-12-16] MEDS: Lisinopril 5 MG Tablet PO SCH (09:20)
[2017-12-16] MEDS: Senna/Docusate Sodium 8.6/50 MG Tablet PO SCH ×2 (09:21→21:18)
--- NOTE | 2017-12-16 11:53 | P.PNNS ---
Subjective Interval history: This is a 52 y/o female with long-standing history of arterial hypertension. Apparently. other than her hypertension she has been previously healthy. Apparently yesterday developed right-sided weakness and difficulty finding words. On arrival to the emergency department she was on hypertrensive crisis, with systolic blood pressure greater than 220, not moving her right side. No seizure activity reported. No tonic-clonic movements. No incontinence of stool or urine. CT scan of the head revealed a 3.9 cm left-sided parenchymal brain hemorrhage based in the basal ganglia. Blood pressure was immediately controlled with intravenous Cardene infusion. Neurosurgical consultation was requested 12/16. She required endotracheal intubation and mechanical ventilation last night as she was unable to protect her airway. Blood pressure control has been acceptable with Cardene. A follow up CT of the brain was done. I had a lengthy discussion with her at the bedside Physical Exam Vital signs: Vital Signs 12/15/17 12:00 12/15/17 15:45 12/15/17 16:00 Temperature 98.1 F 98.1 F Pulse Rate 80 80 Respiratory Rate 16 16 16 Blood Pressure 137/53 L 137/53 L Pulse Oximetry 100 12/15/17 20:00 12/15/17 20:18 12/16/17 00:00 Temperature 99.1 F 98.4 F Pulse Rate 64 80 62 Respiratory Rate 16 16 16 Blood Pressure 134/50 L 134/49 L Pulse Oximetry 100 100 100 12/16/17 00:23 12/16/17 03:58 12/16/17 04:00 Temperature 98.8 F Pulse Rate 66 64 Respiratory Rate 16 16 16 Blood Pressure 142/50 H Pulse Oximetry 100 100 100 12/16/17 07:00 12/16/17 11:00 Temperature Pulse Rate 66 Respiratory Rate 14 14 Blood Pressure Pulse Oximetry 95 100 Intake & Output 12/15/17 12/16/17 12/16/17 18:59 06:59 18:59 Intake Total 800 / 800 650 / 650 1450 / 1450 Output Total 400 / 400 475 / 475 Balance 400 / 400 175 / 175 1450 / 1450 Weight 96 kg Intake: IV 800 / 800 650 / 650 1450 / 1450 Diprivan 1000 mg/100 ml Inj 1, 300 / 300 400 / 400 200 / 200 000 mg In 100 ml @ 5 MCG/KG/MIN 2.822 mls/hr IV.CONT TITRATE PRN Rx#:[id number] NS Inj 1,000 ML @ 30 mls/hr IV. 1000 / 1000 CONT .Q24H JOAO Rx#:[id number] Cardene Inj 50 MG In NS Inj 230 500 / 500 250 / 250 250 / 250 ML @ 5 MG/HR 25 mls/hr IV.CONT TITRATE PRN Rx#:[id number] Output: Urine 400 / 400 Urine Amount (Catheter) 475 / 475 Indwelling Urethral Catheter 475 / 475 Gastric Drainage 0 / 0 0 / 0 Right Nare Nasogastric Tube 0 / 0 0 / 0 Other: # Bowel Movements 0 Narrative: The patient is intubated and sedated. Localizes to painful stimuli with right hemiparesiss. Cranial Nerves: Pupils equal, 3 mm round, reactive to light. Eyes appear conjugated. There was no nystagmus, no papilledema. Face musculature appeared symmetrical at rest. Face sensation, olfaction, and hearing cannot be adequately assessed due to the patient's neurological condition. The patient has a corneal reflex. The patient has a gag reflex. Cervical Spine: The patient's neck is soft, supple, without nuchal rigidity. Motor: Her muscle tone and bulk are normal on the left, decreased tone on the right. He moves purposefully left extremities Reflexes: Deep tendon reflexes trace, right Babinsky, no ankle clonus. Sensory: On examination there there is response to painful stimuli, localizing with left upper and lower extremities. Cerebellar: Examination cannot be adequately assessed due to the patient's neurological condition. Lungs: clear Heart: Regular rhythm and rate Skin: warm and dry - Urinary Catheter Management Indwelling Urethral Catheter Cath placed during this visit: yes Reason for continuing: Hourly intake/output Insertion date: 12/14/17 Insertion time: 17:00 Assessment and Plan - Plan (1) Intraparenchymal hemorrhage of brain Code(s): I61.9 - Nontraumatic intracerebral hemorrhage, unspecified Status: Acute (2) Hypertensive crisis Code(s): I16.9 - Hypertensive crisis, unspecified Status: Acute (3) Stroke, hemorrhagic Code(s): I61.9 - Nontraumatic intracerebral hemorrhage, unspecified Status: Acute I reviewed her FOLLOW UP ct BRAIN Head CT 12/16/17 00:00 CONCLUSION: 1. Evolving left basal ganglia hemorrhage with stable 6 mm toup-du-zccio subfalcine shift. 2. No intercurrent hemorrhage or hydrocephalus. last night she developed respiratory failure and required endotracheal intubation and mechanical ventilation as she was unable to control her airway Neuro: Continue neuro checks in a serial fashion. No surgical procedure is indicated. HTN: cardene drip to keep sbp less than 150 neurology consult Pulmonary: Full mechanical intibation. aggressive pulmonary toilette, nasotracheal suction, and breathing treatments with nebuliz ers. Daily PT and OT Renal: monitor closely urine output, BUN and creatinine Endocrine: Continue to Monitor serial Acu checks and SSI as needed in detail ID continue to monitor for signs of infection Continue Protonix for stress ulcer prophylaxis Continue Joe hose and SCD's for DVT prophylaxis Caprini VTE Risk Assessment VTE Pharmacological Exception Reason: Active bleeding Caprini Risk Assessment Model: Point Value = 1 Point Value = 2 Point Value = 3 Point Value = 5 Age 41-60 Minor surgery BMI > 25 kg/m2 Swollen legs Varicose veins or History of unexplained or recurrent spontaneous Oral contraceptives or hormone replacement Sepsis (< 1 month) Serious lung disease, including pneumonia (< 1 month) Abnormal pulmonary function Acute myocardial infarction Congestive heart failure (< 1 month) History of inflammatory bowel disease Medical patient at bed rest Age 61-74 Arthroscopic surgery Major open surgery (> 45 min) Laparoscopic surgery (> 45 min) Malignancy Confined to bed (> 72 hours) Immobilizing plaster cast Central venous access Age >= 75 History of VTE Family history of VTE Factor V Leiden Prothrombin [id number] Lupus anticoagulant Anticardiolipin antibodies Elevated serum homocysteine Heparin-induced thrombocytopenia Other congenital or acquired thrombophilia Stroke (< 1 month) Elective arthroplasty Hip, pelvis, or leg fracture Acute spinal cord injury (< 1 month) Prophylaxis Regimen: Total Risk Factor Score Risk Level Prophylaxis Regimen 0-1 Low Early ambulation 2 Moderate Order ONE of the following: *Sequential Compression Device (SCD) *Heparin 5000 units SQ BID 3-4 Higher Order ONE of the following medications: *Heparin 5000 units SQ TID *Enoxaparin/Lovenox 40 mg SQ daily (WT < 150 kg, CrCl > 30 mL/min) *Enoxaparin/Lovenox 30 mg SQ daily (WT < 150 kg, CrCl > 10-29 mL/min) *Enoxaparin/Lovenox 30 mg SQ BID (WT < 150 kg, CrCl > 30 mL/min) AND/OR *Sequential Compression Device (SCD) 5 or more Highest Order ONE of the following medications: *Heparin 5000 units SQ TID (Preferred with Epidurals) *Enoxaparin/Lovenox 40 mg SQ daily (WT < 150 kg, CrCl > 30 mL/min) *Enoxaparin/Lovenox 30 mg SQ daily (WT < 150 kg, CrCl > 10-29 mL/min) *Enoxaparin/Lovenox 30 mg SQ BID (WT < 150 kg, CrCl > 30 mL/min) AND *Sequential Compression Device (SCD) This is a large bleed in her dominant hemisphere and a particularly worrisome spot and her prognosis is guarded. Further recommendations will be provided depending on the patient's clinical evaluation and follow up studies.
--- NOTE | 2017-12-16 16:13 | P.PNCC ---
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 She has been previously healthy otherwise but yesterday developed some right-sided weakness and difficulty finding words. On arrival to the emergency department she was crisis with systolic blood pressure greater than 220 and CAT scan of the head revealed a 3.9 cm left-sided parenchymal brain hemorrhage based in the basal ganglia. Blood pressure was immediately controlled with intravenous Cardene infusion and she was transferred to the intensive care unit for further evaluation. 12/15: Unable to protect her airway last night and required endotracheal intubation and mechanical ventilation. Blood pressure control has been acceptable with Cardene. Lengthy discussion with her at the bedside this morning. He states quite clearly that she would be opposed to long-term support with the ventilator. He understands that the short-term use is not in conflict with her wishes.12/16: 12/16: Enlarging bleed with vasogenic edema and mass effect. Remains ventilator dependent. Objective Vital Signs / I&O: Vital Signs 12/15/17 20:00 12/15/17 20:18 12/16/17 00:00 Temperature 99.1 F 98.4 F Pulse Rate 64 80 62 Respiratory Rate 16 16 16 Blood Pressure 134/50 L 134/49 L Pulse Oximetry 100 100 100 12/16/17 00:23 12/16/17 03:58 12/16/17 04:00 Temperature 98.8 F Pulse Rate 66 64 Respiratory Rate 16 16 16 Blood Pressure 142/50 H Pulse Oximetry 100 100 100 12/16/17 07:00 12/16/17 08:00 12/16/17 11:00 Temperature 98.4 F Pulse Rate 66 80 Respiratory Rate 14 16 14 Blood Pressure 161/69 H Pulse Oximetry 95 98 100 12/16/17 12:00 12/16/17 15:44 Temperature 98.1 F Pulse Rate 56 L 68 Respiratory Rate 16 14 Blood Pressure 139/55 L Pulse Oximetry 100 100 Intake & Output 12/15/17 12/16/17 12/16/17 18:59 06:59 18:59 Intake Total 800 / 800 650 / 650 1550 / 1550 Output Total 400 / 400 475 / 475 Balance 400 / 400 175 / 175 1550 / 1550 Weight 96 kg Intake: IV 800 / 800 650 / 650 1550 / 1550 Diprivan 1000 mg/100 ml Inj 1, 300 / 300 400 / 400 300 / 300 000 mg In 100 ml @ 5 MCG/KG/MIN 2.822 mls/hr IV.CONT TITRATE PRN Rx#:[id number] NS Inj 1,000 ML @ 30 mls/hr IV. 1000 / 1000 CONT .Q24H JOAO Rx#:[id number] Cardene Inj 50 MG In NS Inj 230 500 / 500 250 / 250 250 / 250 ML @ 5 MG/HR 25 mls/hr IV.CONT TITRATE PRN Rx#:[id number] Output: Urine 400 / 400 Urine Amount (Catheter) 475 / 475 Indwelling Urethral Catheter 475 / 475 Gastric Drainage 0 / 0 0 / 0 Right Nare Nasogastric Tube 0 / 0 0 / 0 Other: # Bowel Movements 0 Result Diagrams: 12/15/17 03:32 12/16/17 06:20 Objective Remarks: Physical examination: Head: Normocephalic, atraumatic. Neck: Supple, intubated orally. Lungs: Clear, no adventitious sounds, comfortable respiratory pattern Heart: Normal S1-S2, 3/6 systolic murmur heard along the left sternal border and into the apex. No JVD. Abdomen: Large, soft, no guarding, bowel sounds are present. Extremities: Warm, well-perfused, no peripheral edema. Neuro: Pupils are 1 mm in both react to light. Sedated for BP control. Assessment and Plan - Problem List (1) Intraparenchymal hemorrhage of brain Code(s): I61.9 - Nontraumatic intracerebral hemorrhage, unspecified Status: Acute (2) Hypertensive crisis Code(s): I16.9 - Hypertensive crisis, unspecified Status: Acute (3) Stroke, hemorrhagic Code(s): I61.9 - Nontraumatic intracerebral hemorrhage, unspecified Status: Acute - Assessment and Plan Plan: Plan: 1. Maintain BP < 140/90 with cardene infusion. 2. Serial neurologic exam. 3. PRVC vent mode. 4. Pepcid for GI ulcer prophylaxis. 5. Chemical DVT prophylaxis contraindicated because of active bleed. 6. NIH stroke scale. 7. Swallow evaluation.. 8. PT, OT consult. 9. Supplemental O2 to maintain sats greater than 95%. 10. Repeat head CT today. 11. Start oral BP meds. 12. Discuss with family and NS service - care plan, recommendations. Overall impression: Acute hypertensive intraparenchymal hemorrhage in the left basal ganglia. This is a large bleed and a particularly worrisome spot and her prognosis is guarded. We have kept good immediate control of her blood pressure , followed the progression of her hemorrhage, and attempt to wean her from the mechanical ventilation. Presently we cannot separate her from the ventilator and her neurological status is deteriorating. Critical care 40 minutes aside from invasive procedures.
[2017-12-17] MEDS: Propofol 1000 mg/100 ml Inj 1,000 MG/100 ML BOTTLE IV.CONT PRN ×7 (01:48→23:09)
[2017-12-17] MEDS: niCARdipine Inj 50 MG in Sodium Chlor 0.9% Inj 230 ML IV.CONT PRN ×3 (05:15→22:33)
[2017-12-17 05:40] LABS: Calcium 8.1 mg/dL (8.5-10.1); Carbon Dioxide 23.4 meq/L (21.0-32.0); Potassium 3.5 meq/L (3.5-5.1)
[2017-12-17] MEDS: Chlorhexidine Gluconate 2% 1 Pack (2 Cloths) TOPICAL SCH (05:43)
[2017-12-17] MEDS: Lisinopril 5 MG Tablet PO SCH ×2 (08:16→21:54)
[2017-12-17] MEDS: Famotidine PF Inj 20 MG/2 ML Vial IV.PUSH SCH ×2 (08:16→21:53)
[2017-12-17] MEDS: Senna/Docusate Sodium 8.6/50 MG Tablet PO SCH ×2 (08:16→21:55)
[2017-12-17] MEDS: Metoprolol Tartrate 50 MG Tablet PO SCH ×2 (08:17→17:41)
--- NOTE | 2017-12-17 14:29 | P.PNNS ---
Subjective Interval history: 12/17: intubated, sedated. Physical Exam Vital signs: Vital Signs 12/16/17 15:44 12/16/17 16:00 12/16/17 19:20 Temperature 98.6 F Pulse Rate 68 62 Respiratory Rate 14 16 14 Blood Pressure 130/62 Pulse Oximetry 100 100 100 12/16/17 20:00 12/16/17 20:50 12/16/17 22:10 Temperature 98.4 F Pulse Rate 64 68 Respiratory Rate 14 14 17 Blood Pressure 120/94 H Pulse Oximetry 12/17/17 00:00 12/17/17 01:30 12/17/17 03:46 Temperature 98.4 F Pulse Rate 63 88 Respiratory Rate 14 14 19 Blood Pressure 127/55 L Pulse Oximetry 100 99 12/17/17 04:00 12/17/17 04:11 12/17/17 08:00 Temperature 98.1 F 99.0 F Pulse Rate 76 78 Respiratory Rate 14 19 18 Blood Pressure 148/50 H 161/71 H Pulse Oximetry 98 97 96 12/17/17 09:01 12/17/17 13:00 Temperature Pulse Rate 77 Respiratory Rate 14 14 Blood Pressure Pulse Oximetry 95 100 Intake & Output 12/16/17 12/17/17 12/17/17 18:59 06:59 18:59 Intake Total 1900 / 1900 1390 / 1390 450 / 450 Output Total 800 / 800 1150 / 1150 Balance 1100 / 1100 240 / 240 450 / 450 Weight 95.8 kg Intake: IV 1900 / 1900 550 / 550 450 / 450 Diprivan 1000 mg/100 ml Inj 1, 400 / 400 300 / 300 200 / 200 000 mg In 100 ml @ 5 MCG/KG/MIN 2.822 mls/hr IV.CONT TITRATE PRN Rx#:[id number] NS Inj 1,000 ML @ 30 mls/hr IV. 1000 / 1000 CONT .Q24H JOAO Rx#:[id number] Cardene Inj 50 MG In NS Inj 230 500 / 500 250 / 250 250 / 250 ML @ 5 MG/HR 25 mls/hr IV.CONT TITRATE PRN Rx#:[id number] Other 840 / 840 Output: Urine 1000 / 1000 Urine Amount (Catheter) 800 / 800 Indwelling Urethral Catheter 800 / 800 Gastric Drainage 0 / 0 150 / 150 Right Nare Nasogastric Tube 0 / 0 150 / 150 Other: Date of Last Bowel Movement 12/17/17 # Bowel Movements 0 1 Narrative: GENERAL: Intubated, sedated. SKIN: Warm and dry. HEAD: Normocephalic. EYES: No scleral icterus. No injection or drainage. Pupils 4-5 mm bilateral NECK: Supple, trachea midline. No JVD or lymphadenopathy. CARDIOVASCULAR: Regular rate and rhythm RESPIRATORY: Mechanically ventilated GASTROINTESTINAL: Abdomen soft, non-tender, nondistended. MUSCULOSKELETAL: No cyanosis, or edema. NEURO: Does not open eyes, does not follow commands. Decerebrate posturing - Urinary Catheter Management Indwelling Urethral Catheter Cath placed during this visit: yes Reason for continuing: Hourly intake/output Insertion date: 12/14/17 Insertion time: 17:00 Assessment and Plan - Plan 52 y/o female Hypertensive crisis left basal ganglia hemorrhage This is a large bleed in her dominant hemisphere and a particularly worrisome spot and her prognosis is guarded Head CT 12/16/17 00:00 CONCLUSION: 1. Evolving left basal ganglia hemorrhage with stable 6 mm coqb-xe-lhzaf subfalcine shift. 2. No intercurrent hemorrhage or hydrocephalus. continue neuro checks in a serial fashion no surgical procedure is indicated at this time blood pressure control cont critical care management sedation weaning as tolerated and follow up exam Dr. Ger zepeda , his questions answered
--- NOTE | 2017-12-17 15:00 | P.DIET ---
Nutritional Evaluation Screening comments: Pt has been npo x [address] if needed.
--- NOTE | 2017-12-17 16:44 | P.PNCC ---
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 She has been previously healthy otherwise but yesterday developed some right-sided weakness and difficulty finding words. On arrival to the emergency department she was crisis with systolic blood pressure greater than 220 and CAT scan of the head revealed a 3.9 cm left-sided parenchymal brain hemorrhage based in the basal ganglia. Blood pressure was immediately controlled with intravenous Cardene infusion and she was transferred to the intensive care unit for further evaluation. 12/15: Unable to protect her airway last night and required endotracheal intubation and mechanical ventilation. Blood pressure control has been acceptable with Cardene. Lengthy discussion with her at the bedside this morning. He states quite clearly that she would be opposed to long-term support with the ventilator. He understands that the short-term use is not in conflict with her wishes.12/16: 12/16: Enlarging bleed with vasogenic edema and mass effect. Remains ventilator dependent. SUBJECTIVE: 12/17: Afebrile. Remains hypertensive on nicardipine drip at 15 mg an hour. No cough or gag. Minimal withdrawal left upper extremity. Objective Vital Signs / I&O: Vital Signs 12/16/17 19:20 12/16/17 20:00 12/16/17 20:50 Temperature 98.4 F Pulse Rate 64 68 Respiratory Rate 14 14 14 Blood Pressure 120/94 H Pulse Oximetry 100 12/16/17 22:10 12/17/17 00:00 12/17/17 01:30 Temperature 98.4 F Pulse Rate 63 Respiratory Rate 17 14 14 Blood Pressure 127/55 L Pulse Oximetry 100 99 12/17/17 03:46 12/17/17 04:00 12/17/17 04:11 Temperature 98.1 F Pulse Rate 88 76 Respiratory Rate 19 14 19 Blood Pressure 148/50 H Pulse Oximetry 98 97 12/17/17 08:00 12/17/17 09:01 12/17/17 13:00 Temperature 99.0 F Pulse Rate 78 77 Respiratory Rate 18 14 14 Blood Pressure 161/71 H Pulse Oximetry 96 95 100 12/17/17 15:51 12/17/17 15:54 Temperature Pulse Rate 81 Respiratory Rate 14 14 Blood Pressure Pulse Oximetry 99 Intake & Output 12/16/17 12/17/17 12/17/17 18:59 06:59 18:59 Intake Total 1900 / 1900 1390 / 1390 550 / 550 Output Total 800 / 800 1150 / 1150 Balance 1100 / 1100 240 / 240 550 / 550 Weight 95.8 kg Intake: IV 1900 / 1900 550 / 550 550 / 550 Diprivan 1000 mg/100 ml Inj 1, 400 / 400 300 / 300 300 / 300 000 mg In 100 ml @ 5 MCG/KG/MIN 2.822 mls/hr IV.CONT TITRATE PRN Rx#:[id number] NS Inj 1,000 ML @ 30 mls/hr IV. 1000 / 1000 CONT .Q24H JOAO Rx#:[id number] Cardene Inj 50 MG In NS Inj 230 500 / 500 250 / 250 250 / 250 ML @ 5 MG/HR 25 mls/hr IV.CONT TITRATE PRN Rx#:[id number] Other 840 / 840 Output: Urine 1000 / 1000 Urine Amount (Catheter) 800 / 800 Indwelling Urethral Catheter 800 / 800 Gastric Drainage 0 / 0 150 / 150 Right Nare Nasogastric Tube 0 / 0 150 / 150 Other: Date of Last Bowel Movement 12/17/17 # Bowel Movements 0 1 Result Diagrams: 12/15/17 03:32 12/17/17 05:05 Imaging: Chest X-Ray 12/14/17 16:19 CONCLUSION: No acute cardiopulmonary disease. Head CT 12/14/17 16:19 CONCLUSION: 1. Acute high density intraparenchymal hemorrhage centered in the left basal ganglia with mass effect and midline shift. Report was called by [Dr. Andres to Dr. Larsen at 1641 hours. ] Chest X-Ray 12/15/17 01:21 CONCLUSION: 1. Right mainstem intubation. 2. NGT beyond the GE junction. 3. Right subclavian central line with tip in the central SVC. No pneumothorax. 4. Complete opacification of the left hemithorax. Head CT 12/16/17 00:00 CONCLUSION: 1. Evolving left basal ganglia hemorrhage with stable 6 mm tobb-pr-tsafh subfalcine shift. 2. No intercurrent hemorrhage or hydrocephalus. . Objective Remarks: Head: Normocephalic, atraumatic. Neck: Supple, intubated orally. Lungs: Clear, no adventitious sounds, comfortable respiratory pattern Heart: Normal S1-S2, 3/6 systolic murmur heard along the left sternal border and into the apex. No JVD. Abdomen: Large, soft, no guarding, bowel sounds are present. Extremities: Warm, well-perfused, no peripheral edema. Neuro: Pupils are 1 mm in both react to light. Sedated for BP control. Assessment and Plan - Assessment and Plan Plan: Neuro/Psych: Acute left basal ganglia hemorrhagic CVA CT brain 12/16 revealed evolving left basal ganglia intraparenchymal hemorrhage 4.8 x 2.2 cm with 6 mm left to right subfalcine herniation shift. Left lateral ventricle moderately effaced. Followed by neurosurgery/Dr. Cyr. Repeat CT brain when clinically indicated/ his recommendations *3% saline at 10 cc an hour. Goal keep sodium between 1 5155 Levetiracetam 5 mg IV twice daily for seizure prophylaxis Acetaminophen 650 mg by tube every 6 hours as needed fever Currently propofol drip at 50 mcg/kg/min for sedation/analgesia while intubated. We will attempt to transition to gas on fentanyl CV: Hypertensive emergency Currently on nicardipine drip at 50 mg an hour. As needed labetalol 10 mg IV every 8 hours as needed Started metoprolol tartrate 50 mg twice daily increased to 3 times daily and lisinopril 5 mg twice daily Resp: Acute respiratory failure PRVC 14/500/05/25/39 Ventilator bundle Albuterol/ipratropium aerosols every 4 hours with albuterol aerosols every 2 hours as needed for dyspnea Spontaneous breathing trials as clinically indicated A.m. chest x-ray/ABG GI: Start tube feeding with vital 1.5 goal 50 cc an hour Famotidine for GI prophylaxis Docusate sodium/senna 1 tablet twice daily for bowel regimen : Maintain Trejo catheter Endo: Sliding scale insulin with aspart insulin/every 6 hours low regimen to maintain euglycemia Renal: Creatinine currently within normal limits Monitor urine output Accurate I's and O's Heme: Microcytic anemia Monitor CBC daily. Follow trend ID: Monitor for signs of hematology infection FEN: Hypernatremia. Replace electrolytes as clinically indicated Check sodiums every 6 hours. Goal 150-155 MSK: PT evaluate and treat Access -Right subclavian CVL placed 12/15 Prophylaxis -GI -famotidine -DVT -SCD/holding pharmacological prophylaxis status post left basal ganglia hemorrhage Critical care time 30 minutes
[2017-12-17] MEDS: Sod Chloride 0.9% Inj 1,000 ML IV.CONT SCH (16:48)
[2017-12-17] MEDS ORDERED: Dextrose 50% in Water 50 ML Vial IV.PUSH PRN (16:50)
[2017-12-17] MEDS ORDERED: levETIRAcetam 500mg/100mL Inj 100 ML IV.SIG SCH (17:00)
[2017-12-17] MEDS: Insulin NovoLOG Aspart Correctional Sugar Inj SQ SCH (17:37)
[2017-12-17] MEDS: Beneprotein Powder Packet G-TUBE SCH (17:41)
[2017-12-17] MEDS: Hypromellose 0.3% Opth Gel 10 GM Bottle EACH EYE SCH (21:52)
[2017-12-17] MEDS: Labetalol HCl Inj 100 MG/20 ML Vial IV.PUSH PRN (22:01)
[2017-12-18 00:29] LABS: Albumin 2.8 g/dL (3.4-5.0); Anion Gap 8 meq/L (5-15); Aspartate Aminotransferase 40 U/L (15-37); Blood Urea Nitrogen 9 mg/dL (7-18); Carbon Dioxide 21.9 meq/L (21.0-32.0); Chloride 114 meq/L (98-107); Glomerular Filtration Rate Greater Than 89 mL/min (>89); Glucose,Random 137 mg/dL (74-106); Potassium 3.5 meq/L (3.5-5.1); Sodium 144 meq/L (136-145)
[2017-12-18 00:32] LABS: Alanine Aminotransferase 24 U/L (10-53); Alkaline Phosphatase 71 U/L (45-117); Creatine Kinase 736 U/L (26-192); Phosphorus 2.5 mg/dL (2.5-4.9); Total Protein 6.7 g/dL (6.4-8.2)
[2017-12-18] MEDS: Insulin NovoLOG Aspart Correctional Sugar Inj SQ SCH ×4 (00:42→17:47)
[2017-12-18 00:54] LABS: CKMB Percent 0.1 % (0.0-4.0); Creatine Kinase MB 0.8 ng/mL (0.5-3.6)
[2017-12-18] MEDS: niCARdipine Inj 50 MG in Sodium Chlor 0.9% Inj 230 ML IV.CONT PRN ×4 (02:28→23:24)
[2017-12-18] MEDS: Propofol 1000 mg/100 ml Inj 1,000 MG/100 ML BOTTLE IV.CONT PRN ×3 (02:29→09:55)
[2017-12-18] MEDS: Chlorhexidine Gluconate 2% 1 Pack (2 Cloths) TOPICAL SCH (03:39)
--- NOTE | 2017-12-18 04:17 | XR ---
EXAM DATE: 12/18/2017 4:03 AM EDT AGE/SEX: 52 years / Female INDICATIONS: Respiratory failure. Repositioning of nasogastric tube. Follow-up abnormal opacity in t he left lung. CLINICAL DATA: This is the patient's subsequent encounter. Patient reports that signs and symptoms h ave been present for 2 days and indicates a pain score of Nonresponsive. MEDICAL/SURGICAL HISTORY: Non-responsive. Non-responsive. COMPARISON: [facility] [place], CHEST 1V SINGLE AP, 12/15/2017. . FINDINGS: A single AP semierect portable view of the chest was obtained and demonstrates an endotracheal tube w ith the tip now 3 cm above the jimena. The nasogastric tube remains in place. The right subclavian ce ntral venous catheter is unchanged. There is been a marked improvement in the previously noted opacit y throughout the left lung. There is mild airspace opacity remaining at the lung base. There is mild hazy opacity now noted at the right lung base. CONCLUSION: 1. Repositioning of the endotracheal tube with improved aeration in the left lung. 2. Hazy opacity is now noted in both lung bases. Electronically signed by: Colton Andres MD 12/18/2017 4:16 AM EDT
[2017-12-18 06:00] LABS: ABG Base Excess -4.2 mmol/L (-2-2); ABG PCO2 31 mmHg (38-42); ABG PO2 84 mmHg (61-120)
[2017-12-18 06:23] LABS: Baso % (Auto) 0.3 % (0.0-2.0); Eos # (Auto) 0.1 th/mm3 (0.0-0.4); Eos % (Auto) 0.9 % (0.0-4.0); Hematocrit 24.8 % (35.0-46.0); Hemoglobin 7.9 gm/dL (11.6-15.3); Lymph # (Auto) 0.9 th/mm3 (1.0-4.8); Lymph % (Auto) 9.9 % (9.0-44.0); Mean Corpuscular Hemoglobin 21.5 pg (27.0-34.0); Mean Corpuscular Volume 67.3 fL (80.0-100.0); Mean Platelet Volume 7.7 fL (7.0-11.0); Mono # (Auto) 0.8 th/mm3 (0.0-0.9); Mono % (Auto) 8.8 % (0.0-8.0); Neut # (Auto) 7.3 th/mm3 (1.8-7.7); Neut % (Auto) 80.1 % (16.0-70.0); Platelet Count 258 th/mm3 (150-450); Red Blood Count 3.68 mil/mm3 (4.00-5.30); Red Cell Distribution Width 18.6 % (11.6-17.2); White Blood Count 9.1 th/mm3 (4.0-11.0)
[2017-12-18] MEDS: Labetalol HCl Inj 100 MG/20 ML Vial IV.PUSH PRN ×3 (08:02→20:10)
[2017-12-18 08:14] LABS: Calcium 7.8 mg/dL (8.5-10.1); Carbon Dioxide 21.9 meq/L (21.0-32.0); Potassium 3.4 meq/L (3.5-5.1)
[2017-12-18] MEDS: Famotidine PF Inj 20 MG/2 ML Vial IV.PUSH SCH ×2 (08:43→20:17)
[2017-12-18] MEDS: Senna/Docusate Sodium 8.6/50 MG Tablet PO SCH ×2 (08:43→20:17)
[2017-12-18] MEDS: Metoprolol Tartrate 50 MG Tablet PO SCH ×3 (08:43→17:46)
[2017-12-18] MEDS: Lisinopril 5 MG Tablet PO SCH (08:43)
[2017-12-18] MEDS: Hypromellose 0.3% Opth Gel 10 GM Bottle EACH EYE SCH ×2 (08:44→20:18)
[2017-12-18] MEDS: Beneprotein Powder Packet G-TUBE SCH ×3 (08:44→17:46)
[2017-12-18] MEDS: fentaNYL 10 mcg/mL Premix Drip 2,500 MCG/250 ML BAG IV.SIG PRN (08:45)
[2017-12-18] MEDS: Midazolam 50 MG/50 ML Inj 50 MG/50 ML BAG IV.CONT PRN ×2 (08:45→17:45)
--- NOTE | 2017-12-18 10:35 | P.PNCC ---
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 She has been previously healthy otherwise but yesterday developed some right-sided weakness and difficulty finding words. On arrival to the emergency department she was crisis with systolic blood pressure greater than 220 and CAT scan of the head revealed a 3.9 cm left-sided parenchymal brain hemorrhage based in the basal ganglia. Blood pressure was immediately controlled with intravenous Cardene infusion and she was transferred to the intensive care unit for further evaluation. 12/15: Unable to protect her airway last night and required endotracheal intubation and mechanical ventilation. Blood pressure control has been acceptable with Cardene. Lengthy discussion with her at the bedside this morning. He states quite clearly that she would be opposed to long-term support with the ventilator. He understands that the short-term use is not in conflict with her wishes.12/16: 12/16: Enlarging bleed with vasogenic edema and mass effect. Remains ventilator dependent. SUBJECTIVE: 12/17: Afebrile. Remains hypertensive on nicardipine drip at 15 mg an hour. No cough or gag. Minimal withdrawal left upper extremity. 12/18: Remains intubated sedated remains very critical. Currently on 3% saline to maintain sodium close to 150. Neuro exam reveals localizing on the left upper extremity withdrawing bilateral lower extremity and also withdrawing right upper extremity Objective Vital Signs / I&O: Vital Signs 12/17/17 12:00 12/17/17 13:00 12/17/17 15:51 Temperature 97.9 F Pulse Rate 74 Respiratory Rate 14 14 14 Blood Pressure 144/68 H Pulse Oximetry 100 100 99 12/17/17 15:54 12/17/17 16:00 12/17/17 19:03 Temperature 98.0 F Pulse Rate 81 82 64 Respiratory Rate 14 14 14 Blood Pressure 137/58 L Pulse Oximetry 98 97 12/17/17 19:25 12/17/17 20:00 12/18/17 00:00 Temperature 98.8 F 98.6 F Pulse Rate 64 80 Respiratory Rate 14 17 Blood Pressure 128/57 L 135/57 L Pulse Oximetry 99 97 97 12/18/17 00:08 12/18/17 03:24 12/18/17 04:00 Temperature 99.0 F Pulse Rate 85 63 64 Respiratory Rate 18 14 14 Blood Pressure 131/53 L Pulse Oximetry 99 100 98 12/18/17 07:57 Temperature Pulse Rate 87 Respiratory Rate 20 Blood Pressure Pulse Oximetry 97 Intake & Output 12/17/17 12/18/17 12/18/17 18:59 06:59 18:59 Intake Total 925 / 925 1081 / 1081 350 / 350 Output Total 700 / 700 650 / 650 Balance 225 / 225 431 / 431 350 / 350 Weight 95.9 kg Intake: IV 925 / 925 900 / 900 350 / 350 Diprivan 1000 mg/100 ml Inj 1, 300 / 300 400 / 400 100 / 100 000 mg In 100 ml @ 5 MCG/KG/MIN 2.822 mls/hr IV.CONT TITRATE PRN Rx#:[id number] NS Inj 1,000 ML @ 30 mls/hr IV. 270 / 270 CONT .Q24H JOAO Rx#:[id number] Cardene Inj 50 MG In NS Inj 230 250 / 250 500 / 500 250 / 250 ML @ 5 MG/HR 25 mls/hr IV.CONT TITRATE PRN Rx#:[id number] Keppra Inj 500 MG In NS Inj 100 105 / 105 ML @ 420 mls/hr IV.SIG Q12H JOAO Rx#:[id number] Tube Feeding 61 / 61 Water Bolus Amount 120 / 120 Output: Urine Amount (Catheter) 700 / 700 650 / 650 Indwelling Urethral Catheter 700 / 700 650 / 650 Other: Date of Last Bowel Movement 12/17/17 12/17/17 # Bowel Movements 0 Result Diagrams: 12/18/17 05:50 12/18/17 06:55 Objective Remarks: Head: Normocephalic, atraumatic. Neck: Supple, intubated orally. Lungs: Clear, no adventitious sounds, comfortable respiratory pattern Heart: Normal S1-S2, 2/6 systolic murmur heard along the left sternal border and into the apex. No JVD. Abdomen: Large, soft, no guarding, bowel sounds are present. Extremities: Warm, well-perfused, no peripheral edema. Neuro: Pupils are 2 mm in both react to light. Sedated for BP control. Localizes to central pain with left upper extremity. Withdraws all other 3 extremities Assessment and Plan - Assessment and Plan Plan: Neuro/Psych: Acute left basal ganglia hemorrhagic CVA CT brain 12/16 revealed evolving left basal ganglia IPH 4.8 x 2.2 cm with 6 mm left to right subfalcine herniation shift. Left lateral ventricle moderately effaced. Followed by neurosurgery/Dr. Cyr. Repeat CT brain when clinically indicated/ his recommendations 3% saline at 10 cc an hour. Goal keep sodium between 150-155 Levetiracetam 500 mg IV twice daily for seizure prophylaxis Acetaminophen 650 mg by tube every 6 hours as needed fever Currently on Versed and fentanyl for sedation and ventilator synchrony CV: Hypertensive emergency Nicardipine infusion as needed for BP control, currently at 7.5 mg daily As needed labetalol 10 mg IV every 8 hours as needed metoprolol tartrate 50 mg 3 times daily and lisinopril 5 mg twice daily, increase to 20 mg twice daily Resp: Acute respiratory failure [facility] /05/25/39 Ventilator bundle Albuterol/ipratropium aerosols every 4 hours with albuterol aerosols every 2 hours as needed for dyspnea Spontaneous breathing trials as clinically indicated, mental status will not permit extubation A.m. chest x-ray/ABG GI: tube feeding with vital 1.5 goal 50 cc an hour Famotidine for GI prophylaxis Docusate sodium/senna 1 tablet twice daily for bowel regimen Endo: Sliding scale insulin with aspart insulin/every 6 hours low regimen to maintain euglycemia Renal: Creatinine currently within normal limits Monitor urine output Accurate I's and O's Maintain Trejo catheter Heme: Microcytic anemia Monitor CBC daily. Follow trend ID: Monitor for signs of hematology infection FEN: Hypernatremia. Replace electrolytes as clinically indicated Check sodiums every 6 hours. Goal 150-155 Access -Right subclavian CVL placed 12/15 Prophylaxis -GI -famotidine -DVT -SCD/holding pharmacological prophylaxis status post left basal ganglia hemorrhage Critical care time 30 minutes Remains very critical with severe left basal ganglia hemorrhage and midline shift. Continue close neuro monitoring. Very slight neuro improvement Code Status: FULL Discussed Condition With: Neurosurgery
[2017-12-18] MEDS: Lisinopril 20 MG Tablet PO SCH ×2 (12:37→20:17)
--- NOTE | 2017-12-18 12:41 | P.DIET ---
Nutritional Evaluation Type of nutrition evaluation: initial Nutrition consult regarding: Tube Feeding Screening comments: Assessed per SCCM and ASPEN guidelines for critically ill pts with a BMI >30. Objective - Diagnosis Hemorrhagic Stroke - Objective % IBW: 192 (IBW = 110#) Body Weight Used for Calculations: IBW (used 50 kg for protein needs), Actual ( used 95.9 kg for kcaloric needs) Energy Needs - Lower Range (kCal/kg): 11 Energy Needs - Upper Range (kCal/kg): 14 Lower Limit kCal/kg (kCals): 1,055 Upper Limit kCal/kg (kCals): 1,343 Lower Limit Protein Factor (Grams per Kg): 1.8 Upper Limit Protein Factor (Grams per Kg): 2.2 Lower Protein Needs (Protein): 90 Upper Protein Needs (Protein): 110 Dietitian Reviewed in Medical Record: Curent medications, Intake & Output, Labs , Medical history, Tube feeding Feeding - Current Tube Feeding Tube Feeding Product: Vital 1.5 Tube Feeding Rate: 30 Tube Feeding Additive: Beneprotein (1 pack tid ordered) Diprivan Rate: 14 (mls/hr) Lipid kCals From Diprivan: 370 Assessment Assessment: Pt is vented and sedated and needs TFing to meet nutritional needs. Recommend Vital High Protein @ 50 mls/hr to provide 1200 kcals, 105 gms protein and 1003 mls of free water. Some additional kcals will be provided by propofol (1.1 kcal/ ml). Recommendations: Vital High Protein @ 50 mls/hr D/C Beneprotein whenTF is changed to RD recs. Pt will not need the additional protein. Dietitian to Monitor: Lab values, Intake & Output, Tube feeding tolerance, Weight change, Medical course
--- NOTE | 2017-12-18 14:31 | P.PNNS ---
Subjective Interval history: 12/18: intubated, remains sedated on propofol drip. Physical Exam Vital signs: Vital Signs 12/17/17 15:51 12/17/17 15:54 12/17/17 16:00 Temperature 98.0 F Pulse Rate 81 82 Respiratory Rate 14 14 14 Blood Pressure 137/58 L Pulse Oximetry 99 98 12/17/17 19:03 12/17/17 19:25 12/17/17 20:00 Temperature 98.8 F Pulse Rate 64 64 Respiratory Rate 14 14 Blood Pressure 128/57 L Pulse Oximetry 97 99 97 12/18/17 00:00 12/18/17 00:08 12/18/17 03:24 Temperature 98.6 F Pulse Rate 80 85 63 Respiratory Rate 17 18 14 Blood Pressure 135/57 L Pulse Oximetry 97 99 100 12/18/17 04:00 12/18/17 07:57 12/18/17 08:00 Temperature 99.0 F 98.9 F Pulse Rate 64 87 86 Respiratory Rate 14 20 14 Blood Pressure 131/53 L 178/66 H Pulse Oximetry 98 97 100 12/18/17 11:34 12/18/17 12:00 Temperature 98.7 F Pulse Rate 56 L 55 L Respiratory Rate 14 14 Blood Pressure 133/53 L Pulse Oximetry 95 100 Intake & Output 12/17/17 12/18/17 12/18/17 18:59 06:59 18:59 Intake Total 925 / 925 1081 / 1081 455 / 455 Output Total 700 / 700 650 / 650 Balance 225 / 225 431 / 431 455 / 455 Weight 95.9 kg Intake: IV 925 / 925 900 / 900 455 / 455 Diprivan 1000 mg/100 ml Inj 1, 300 / 300 400 / 400 100 / 100 000 mg In 100 ml @ 5 MCG/KG/MIN 2.822 mls/hr IV.CONT TITRATE PRN Rx#:[id number] NS Inj 1,000 ML @ 30 mls/hr IV. 270 / 270 CONT .Q24H JOAO Rx#:[id number] Cardene Inj 50 MG In NS Inj 230 250 / 250 500 / 500 250 / 250 ML @ 5 MG/HR 25 mls/hr IV.CONT TITRATE PRN Rx#:[id number] Keppra Inj 500 MG In NS Inj 100 105 / 105 105 / 105 ML @ 420 mls/hr IV.SIG Q12H JOAO Rx#:[id number] Tube Feeding 61 / 61 Water Bolus Amount 120 / 120 Output: Urine Amount (Catheter) 700 / 700 650 / 650 Indwelling Urethral Catheter 700 / 700 650 / 650 Other: Date of Last Bowel Movement 12/17/17 12/17/17 # Bowel Movements 0 Narrative: GENERAL: Intubated, sedated on propofol drip. SKIN: Warm and dry. HEAD: Normocephalic. EYES: No scleral icterus. No injection or drainage. Pupils 4-5 mm bilateral NECK: Supple, trachea midline. No JVD or lymphadenopathy. CARDIOVASCULAR: Regular rate and rhythm RESPIRATORY: Mechanically ventilated GASTROINTESTINAL: Abdomen soft, non-tender, nondistended. MUSCULOSKELETAL: No cyanosis, or edema. NEURO: Does not open eyes, does not follow commands. No purposeful movement. appears more withdrawal to pain on left side, slight extension right. - Urinary Catheter Management Indwelling Urethral Catheter Cath placed during this visit: yes Reason for continuing: Hourly intake/output Insertion date: 12/14/17 Insertion time: 17:00 Assessment and Plan - Plan 52 y/o female Hypertensive crisis left basal ganglia hemorrhage This is a large bleed in her dominant hemisphere and a particularly worrisome spot and her prognosis is guarded Head CT 12/16/17 00:00 CONCLUSION: 1. Evolving left basal ganglia hemorrhage with stable 6 mm [id number] subfalcine shift. 2. No intercurrent hemorrhage or hydrocephalus. Plan: continue neuro checks no surgical procedure is indicated at this time cont blood pressure control cont critical care management sedation weaning as tolerated and follow up exam
[2017-12-18] MEDS: Sod Chloride 0.9% Inj 1,000 ML IV.CONT SCH (16:15)
[2017-12-19] MEDS: Insulin NovoLOG Aspart Correctional Sugar Inj SQ SCH ×4 (01:09→20:22)
[2017-12-19] MEDS: fentaNYL 10 mcg/mL Premix Drip 2,500 MCG/250 ML BAG IV.SIG PRN (01:37)
[2017-12-19] MEDS: Chlorhexidine Gluconate 2% 1 Pack (2 Cloths) TOPICAL SCH (03:17)
[2017-12-19] MEDS: Labetalol HCl Inj 100 MG/20 ML Vial IV.PUSH PRN (05:18)
[2017-12-19 06:30] LABS: Calcium 7.9 mg/dL (8.5-10.1); Carbon Dioxide 24.5 meq/L (21.0-32.0); Potassium 3.7 meq/L (3.5-5.1)
[2017-12-19] MEDS: niCARdipine Inj 50 MG in Sodium Chlor 0.9% Inj 230 ML IV.CONT PRN ×2 (06:55→10:35)
--- NOTE | 2017-12-19 08:41 | P.PNCC ---
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 She has been previously healthy otherwise but yesterday developed some right-sided weakness and difficulty finding words. On arrival to the emergency department she was crisis with systolic blood pressure greater than 220 and CAT scan of the head revealed a 3.9 cm left-sided parenchymal brain hemorrhage based in the basal ganglia. Blood pressure was immediately controlled with intravenous Cardene infusion and she was transferred to the intensive care unit for further evaluation. 12/15: Unable to protect her airway last night and required endotracheal intubation and mechanical ventilation. Blood pressure control has been acceptable with Cardene. Lengthy discussion with her at the bedside this morning. He states quite clearly that she would be opposed to long-term support with the ventilator. He understands that the short-term use is not in conflict with her wishes.12/16: 12/16: Enlarging bleed with vasogenic edema and mass effect. Remains ventilator dependent. SUBJECTIVE: 12/17: Afebrile. Remains hypertensive on nicardipine drip at 15 mg an hour. No cough or gag. Minimal withdrawal left upper extremity. 12/18: Remains intubated sedated remains very critical. Currently on 3% saline to maintain sodium close to 150. Neuro exam reveals localizing on the left upper extremity withdrawing bilateral lower extremity and also withdrawing right upper extremity 12/19: Remains intubated sedated, no acute events overnight. Sodium is 152 now. Restarted on Cardene infusion for uncontrolled hypertension. Neuro exam remains same. Continues to localize with left upper extremity withdraws all other extremities. Repeat imaging per Dr. Cyr Objective Vital Signs / I&O: Vital Signs 12/18/17 11:34 12/18/17 12:00 12/18/17 16:00 Temperature 98.7 F 99.0 F Pulse Rate 56 L 55 L 56 L Respiratory Rate 14 14 14 Blood Pressure 133/53 L 122/48 L Pulse Oximetry 95 100 56 L 12/18/17 16:01 12/18/17 19:50 12/18/17 20:00 Temperature 100.6 F H Pulse Rate 57 L 60 78 Respiratory Rate 14 14 14 Blood Pressure 151/68 H Pulse Oximetry 100 99 100 12/18/17 21:57 12/18/17 23:17 12/19/17 00:00 Temperature 98.9 F Pulse Rate 56 L 56 L Respiratory Rate 14 14 14 Blood Pressure 112/74 Pulse Oximetry 95 99 12/19/17 02:07 12/19/17 02:08 12/19/17 03:10 Temperature Pulse Rate 68 Respiratory Rate 14 14 14 Blood Pressure Pulse Oximetry 100 12/19/17 04:00 12/19/17 04:41 12/19/17 08:16 Temperature 98.3 F Pulse Rate 62 75 Respiratory Rate 14 14 14 Blood Pressure 140/56 L Pulse Oximetry 98 98 94 L Intake & Output 12/18/17 12/19/17 12/19/17 18:59 06:59 18:59 Intake Total 2009 1155 / 1155 Output Total 400 / 400 Balance 1610 / 1610 1155 / 1155 Weight 97.8 kg Intake: IV 1590 / 1590 855 / 855 Versed Inj 50 mg In 50 ml @ 2 50 / 50 MG/HR 2 mls/hr IV.CONT TITRATE PRN Rx#:[id number] Diprivan 1000 mg/100 ml Inj 1, 100 / 100 000 mg In 100 ml @ 5 MCG/KG/MIN 2.822 mls/hr IV.CONT TITRATE PRN Rx#:[id number] NS Inj 1,000 ML @ 30 mls/hr IV. 730 / 730 CONT .Q24H JOAO Rx#:[id number] Cardene Inj 50 MG In NS Inj 230 500 / 500 500 / 500 ML @ 5 MG/HR 25 mls/hr IV.CONT TITRATE PRN Rx#:[id number] fentaNYL 10 mcg/mL Premix Drip 250 / 250 2,500 mcg In 250 ml @ 50 MCG/HR 5 mls/hr IV.SIG TITRATE PRN Rx #:[id number] Keppra Inj 500 MG In NS Inj 100 210 / 210 105 / 105 ML @ 420 mls/hr IV.SIG Q12H JOAO Rx#:[id number] Tube Feeding 340 / 340 180 / 180 Tube Irrigant 80 / 80 Water Bolus Amount 120 / 120 Output: Urine Amount (Catheter) 400 / 400 Indwelling Urethral Catheter 400 / 400 Other: # Bowel Movements 0 0 Result Diagrams: 12/18/17 05:50 12/19/17 05:50 Objective Remarks: Head: Normocephalic, atraumatic. Neck: Supple, intubated orally. Lungs: Clear, no adventitious sounds, comfortable respiratory pattern Heart: Normal S1-S2, 2/6 systolic murmur heard along the left sternal border and into the apex. No JVD. Abdomen: Soft, no guarding, bowel sounds are present. Extremities: Warm, well-perfused, no peripheral edema. Neuro: Pupils are 2 mm in both react to light. Sedated for BP control. Localizes to central pain with left upper extremity, withdraws all other 3 extremities Assessment and Plan - Assessment and Plan Plan: Neuro/Psych: Acute left basal ganglia hemorrhagic CVA CT brain 12/16 revealed evolving left basal ganglia IPH 4.8 x 2.2 cm with 6 mm left to right subfalcine herniation shift. Left lateral ventricle moderately effaced. Followed by neurosurgery/Dr. Cyr. Repeat CT brain when clinically indicated/ his recommendations 3% saline at 10 cc an hour. Goal keep sodium between 150-155 Levetiracetam 500 mg IV twice daily for seizure prophylaxis Acetaminophen 650 mg by tube every 6 hours as needed fever Currently on Versed and fentanyl for sedation and ventilator synchrony CV: Hypertensive emergency Nicardipine infusion as needed for BP control, currently at 12.5 mg/hr As needed labetalol 10 mg IV every 1 hours as needed, change to 20 mg IV q2 hours PRN metoprolol tartrate 50 mg 3 times daily and lisinopril 5 mg twice daily, increase to 20 mg twice daily Add Norvasc 10 mg daily Resp: Acute respiratory failure PRVC 14/500///40. Ventilator bundle Albuterol/ipratropium aerosols every 4 hours with albuterol aerosols every 2 hours as needed for dyspnea Spontaneous breathing trials as clinically indicated, mental status will not permit extubation Chest x-ray/ABG as needed GI: Tube feeding with vital 1.5 goal 50 cc an hour Famotidine for GI prophylaxis Docusate sodium/senna 1 tablet twice daily for bowel regimen Endo: Sliding scale insulin with aspart insulin/every 6 hours low regimen to maintain euglycemia Renal: Creatinine currently within normal limits Monitor urine output. Accurate I's and O's Maintain Trejo catheter Heme: Microcytic anemia Monitor CBC daily. Follow trend ID: Monitor for signs of hematology infection FEN: Hypernatremia. Replace electrolytes as clinically indicated Check sodiums every 6 hours. Goal 150-155 Access -Right subclavian CVL placed 12/15 Prophylaxis -GI -famotidine -DVT -SCD/holding pharmacological prophylaxis status post left basal ganglia hemorrhage Critical care time 30 minutes Remains very critical with severe left basal ganglia hemorrhage and midline shift. Continue close neuro monitoring. Very slight neuro improvement, but overall prognosis remains guarded. Code Status: Full
[2017-12-19] MEDS ORDERED: Labetalol HCl Inj 100 MG/20 ML Vial IV.PUSH PRN (08:52)
[2017-12-19 09:33] LABS: ABG Base Excess -3.2 mmol/L (-2-2); ABG PCO2 25 mmHg (38-42); ABG PO2 280 mmHg (61-120)
--- NOTE | 2017-12-19 09:33 | P.PNNS ---
Subjective Interval history: 12/19: when sedation lowered, became hypoxic, also running slight fever. stat CXR ordered. new shaking/shivering, currently on Keppra 500 q12 hrs. Physical Exam Vital signs: Vital Signs 12/18/17 11:34 12/18/17 12:00 12/18/17 16:00 Temperature 98.7 F 99.0 F Pulse Rate 56 L 55 L 56 L Respiratory Rate 14 14 14 Blood Pressure 133/53 L 122/48 L Pulse Oximetry 95 100 56 L 12/18/17 16:01 12/18/17 19:50 12/18/17 20:00 Temperature 100.6 F H Pulse Rate 57 L 60 78 Respiratory Rate 14 14 14 Blood Pressure 151/68 H Pulse Oximetry 100 99 100 12/18/17 21:57 12/18/17 23:17 12/19/17 00:00 Temperature 98.9 F Pulse Rate 56 L 56 L Respiratory Rate 14 14 14 Blood Pressure 112/74 Pulse Oximetry 95 99 12/19/17 02:07 12/19/17 02:08 12/19/17 03:10 Temperature Pulse Rate 68 Respiratory Rate 14 14 14 Blood Pressure Pulse Oximetry 100 12/19/17 04:00 12/19/17 04:41 12/19/17 08:16 Temperature 98.3 F Pulse Rate 62 75 Respiratory Rate 14 14 14 Blood Pressure 140/56 L Pulse Oximetry 98 98 94 L Intake & Output 12/18/17 12/19/17 12/19/17 18:59 06:59 18:59 Intake Total 2009 1155 / 1155 Output Total 400 / 400 Balance 1610 / 1610 1155 / 1155 Weight 97.8 kg Intake: IV 1590 / 1590 855 / 855 Versed Inj 50 mg In 50 ml @ 2 50 / 50 MG/HR 2 mls/hr IV.CONT TITRATE PRN Rx#:[id number] Diprivan 1000 mg/100 ml Inj 1, 100 / 100 000 mg In 100 ml @ 5 MCG/KG/MIN 2.822 mls/hr IV.CONT TITRATE PRN Rx#:[id number] NS Inj 1,000 ML @ 30 mls/hr IV. 730 / 730 CONT .Q24H JOAO Rx#:[id number] Cardene Inj 50 MG In NS Inj 230 500 / 500 500 / 500 ML @ 5 MG/HR 25 mls/hr IV.CONT TITRATE PRN Rx#:[id number] fentaNYL 10 mcg/mL Premix Drip 250 / 250 2,500 mcg In 250 ml @ 50 MCG/HR 5 mls/hr IV.SIG TITRATE PRN Rx #:[id number] Keppra Inj 500 MG In NS Inj 100 210 / 210 105 / 105 ML @ 420 mls/hr IV.SIG Q12H JOAO Rx#:[id number] Tube Feeding 340 / 340 180 / 180 Tube Irrigant 80 / 80 Water Bolus Amount 120 / 120 Output: Urine Amount (Catheter) 400 / 400 Indwelling Urethral Catheter 400 / 400 Other: # Bowel Movements 0 0 Narrative: GENERAL: Intubated, sedated on propofol drip. Generalized shivering/tremors noted. SKIN: Warm and dry. HEAD: Normocephalic. EYES: No scleral icterus. No injection or drainage. Pupils 3-4 mm bilateral NECK: Supple, trachea midline. No JVD or lymphadenopathy. CARDIOVASCULAR: Regular rate and rhythm RESPIRATORY: Mechanically ventilated GASTROINTESTINAL: Abdomen soft, non-tender, nondistended. MUSCULOSKELETAL: No cyanosis, or edema. NEURO: Does not open eyes, does not follow commands. No purposeful movement. extension of extremities to pain. - Urinary Catheter Management Indwelling Urethral Catheter Cath placed during this visit: yes Reason for continuing: Hourly intake/output Insertion date: 12/14/17 Insertion time: 17:00 Assessment and Plan - Plan 52 y/o female Hypertensive crisis left basal ganglia hemorrhage This is a large bleed in her dominant hemisphere and a particularly worrisome spot and her prognosis is guarded Head CT 12/16/17 00:00 CONCLUSION: 1. Evolving left basal ganglia hemorrhage with stable 6 mm [id number] subfalcine shift. 2. No intercurrent hemorrhage or hydrocephalus. Plan: continue neuro checks no surgical procedure is indicated at this time cont blood pressure control cont critical care management cont keppra, EEG today
[2017-12-19] MEDS: Hypromellose 0.3% Opth Gel 10 GM Bottle EACH EYE SCH (09:47)
[2017-12-19] MEDS: Metoprolol Tartrate 50 MG Tablet PO SCH ×4 (09:47→20:22)
[2017-12-19] MEDS: Senna/Docusate Sodium 8.6/50 MG Tablet PO SCH (09:47)
[2017-12-19] MEDS: Lisinopril 20 MG Tablet PO SCH (09:47)
[2017-12-19] MEDS: Famotidine PF Inj 20 MG/2 ML Vial IV.PUSH SCH (09:47)
[2017-12-19] MEDS: Beneprotein Powder Packet G-TUBE SCH ×3 (09:47→20:22)
[2017-12-19] MEDS: amLODIPine 10 MG Tablet PO SCH (09:47)
--- NOTE | 2017-12-19 09:50 | XR ---
EXAM DATE: 12/19/2017 9:48 AM EDT AGE/SEX: 52 years / Female INDICATIONS: Evaluate lung status. Infiltrate per order. CLINICAL DATA: This is the patient's subsequent encounter. Patient reports that signs and symptoms h ave been present for 4 - 6 days and indicates a pain score of Nonresponsive. MEDICAL/SURGICAL HISTORY: . Hypertension. section. . COMPARISON: C, CHEST 1V SINGLE AP, 12/18/2017. . FINDINGS: There is improved aeration at the right lung base however atelectasis versus mild residual consolidat ion remaining. There is also improved aeration of the left lower lobe with mild residual airspace dis ease and atelectasis. Endotracheal tube and enteric tube again noted. Right subclavian central venous catheter tip overlies the SVC. Small right effusion. CONCLUSION: Improved aeration. Electronically signed by: Alex Baugh MD 12/19/2017 9:49 AM EDT
--- NOTE | 2017-12-19 19:06 | MG ---
cc: Lucinda Kidd MD, Dalia MD EEG NUMBER [id number] REFERRING PHYSICIAN: Dr. Boggs. With photic stimulation on 5 mL per hour of Versed and 100 mcg per hour of fentanyl, intubated. CT shows evolving left basal ganglionic hemorrhage with stable 6 mm shift left to right. This is a stroke alert, found altered by the elevated blood pressure, history of hypertension. CURRENT MEDICATIONS: 1. Keppra. 2. Lisinopril. 3. Lopressor. 4. Nicardipine. DESCRIPTION OF RECORD: As noted, the patient is sedated. The overall background is slow, predominantly 1-2 Hz. Quite a bit of myogenic artifact seen throughout the recording. EKG does look possibly sinus. Muscle artifact again throughout. Overall, significant slowing noted of delta frequency. Photic stimulation was performed. There was no significant driving response and stimulation was given to the patient causing more myogenic artifact than any reactivity. IMPRESSION: Abnormal electroencephalogram due to diffuse slowing of background consistent with moderately severe encephalopathic process. May be due to the patient's known history of stroke, but also due to sedation on board. Clinical correlation. No epileptiform features. MD RAFAEL Vee/ , 06:51 PM , 06:56 PM
[2017-12-19] MEDS: Midazolam 50 MG/50 ML Inj 50 MG/50 ML BAG IV.CONT PRN (19:36)
[2017-12-19] MEDS: Sod Chloride 0.9% Inj 1,000 ML IV.CONT SCH (20:22)
[2017-12-20] MEDS: Hypromellose 0.3% Opth Gel 10 GM Bottle EACH EYE SCH ×3 (00:12→20:12)
[2017-12-20] MEDS: Famotidine PF Inj 20 MG/2 ML Vial IV.PUSH SCH ×3 (00:12→20:10)
[2017-12-20] MEDS: Senna/Docusate Sodium 8.6/50 MG Tablet PO SCH ×3 (00:13→20:11)
[2017-12-20] MEDS: Lisinopril 20 MG Tablet PO SCH ×3 (00:13→20:12)
[2017-12-20] MEDS: Insulin NovoLOG Aspart Correctional Sugar Inj SQ SCH ×4 (00:43→18:02)
[2017-12-20] MEDS: Sod Chloride 0.9% Inj 1,000 ML IV.CONT SCH ×3 (04:30→17:27)
[2017-12-20] MEDS: niCARdipine Inj 50 MG in Sodium Chlor 0.9% Inj 230 ML IV.CONT PRN ×6 (04:32→23:22)
[2017-12-20] MEDS: fentaNYL 10 mcg/mL Premix Drip 2,500 MCG/250 ML BAG IV.SIG PRN ×2 (04:33→18:36)
[2017-12-20] MEDS: Midazolam 50 MG/50 ML Inj 50 MG/50 ML BAG IV.CONT PRN ×3 (04:34→19:50)
--- NOTE | 2017-12-20 06:29 | P.PNCC ---
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 She has been previously healthy otherwise but yesterday developed some right-sided weakness and difficulty finding words. On arrival to the emergency department she was crisis with systolic blood pressure greater than 220 and CAT scan of the head revealed a 3.9 cm left-sided parenchymal brain hemorrhage based in the basal ganglia. Blood pressure was immediately controlled with intravenous Cardene infusion and she was transferred to the intensive care unit for further evaluation. 12/15: Unable to protect her airway last night and required endotracheal intubation and mechanical ventilation. Blood pressure control has been acceptable with Cardene. Lengthy discussion with her at the bedside this morning. He states quite clearly that she would be opposed to long-term support with the ventilator. He understands that the short-term use is not in conflict with her wishes. 12/16: Enlarging bleed with vasogenic edema and mass effect. Remains ventilator dependent. 12/17: Afebrile. Remains hypertensive on nicardipine drip at 15 mg an hour. No cough or gag. Minimal withdrawal left upper extremity. 12/18: Remains intubated sedated remains very critical. Currently on 3% saline to maintain sodium close to 150. Neuro exam reveals localizing on the left upper extremity withdrawing bilateral lower extremity and also withdrawing right upper extremity 12/19: Remains intubated sedated, no acute events overnight. Sodium is 152 now. Restarted on Cardene infusion for uncontrolled hypertension. Neuro exam remains same. Continues to localize with left upper extremity withdraws all other extremities. Repeat EEG per Dr. Cyr SUBJECTIVE: 12/20 No significant change. Remains on sedation because desats, has shaking movements during sedation vacation. Dr. Cyr discussed poor prognosis with family today. Repeat CT brain ordered for tomorrow per Neurosurgery. EEG repeated yesterday - diffuse slowing of background consistent with moderately severe encephalopathic process. No epileptiform features. Remains Intubated and sedated on cardene drip. Sodium 154. Objective Vital Signs / I&O: Vital Signs 12/19/17 08:00 12/19/17 08:16 12/19/17 11:11 Temperature 100.8 F H Pulse Rate 70 75 70 Respiratory Rate 16 14 16 Blood Pressure 149/50 H Pulse Oximetry 94 L 100 12/19/17 12:00 12/19/17 15:26 12/19/17 16:00 Temperature 100.1 F H 100.1 F H Pulse Rate 70 70 70 Respiratory Rate 16 Blood Pressure 118/69 118/69 Pulse Oximetry 100 12/19/17 19:00 12/19/17 20:00 12/19/17 20:36 Temperature 98.7 F Pulse Rate 74 79 Respiratory Rate 16 16 16 Blood Pressure 154/74 H Pulse Oximetry 100 100 12/19/17 23:32 12/19/17 23:43 12/20/17 00:00 Temperature 99.2 F Pulse Rate 79 75 Respiratory Rate 16 16 16 Blood Pressure 127/75 Pulse Oximetry 100 100 12/20/17 03:20 12/20/17 04:00 12/20/17 06:05 Temperature 98.9 F Pulse Rate 76 Respiratory Rate 16 16 16 Blood Pressure 144/56 H Pulse Oximetry 100 100 Intake & Output 12/19/17 12/19/17 12/20/17 06:59 18:59 06:59 Intake Total 1155 / 1155 820 / 820 2155 / 2155 Output Total 700 / 700 2150 / 2150 Balance 1155 / 1155 120 / 120 5 / 5 Weight 97.8 kg 101.4 kg Intake: IV 855 / 855 655 / 655 300 / 300 Versed Inj 50 mg In 50 ml @ 2 50 / 50 50 / 50 MG/HR 2 mls/hr IV.CONT TITRATE PRN Rx#:[id number] Cardene Inj 50 MG In NS Inj 230 500 / 500 500 / 500 ML @ 5 MG/HR 25 mls/hr IV.CONT TITRATE PRN Rx#:[id number] fentaNYL 10 mcg/mL Premix Drip 250 / 250 250 / 250 2,500 mcg In 250 ml @ 50 MCG/HR 5 mls/hr IV.SIG TITRATE PRN Rx #:[id number] Keppra Inj 500 MG In NS Inj 100 105 / 105 105 / 105 ML @ 420 mls/hr IV.SIG Q12H [facility] Rx#:[id number] Tube Feeding 180 / 180 165 / 165 615 / 615 Tube Irrigant 80 / 80 Water Bolus Amount 120 / 120 320 / 320 Other 840 / 840 Output: Urine 1000 / 1000 Stool 0 / 0 Urine Amount (Catheter) 700 / 700 1000 / 1000 Indwelling Urethral Catheter 700 / 700 1000 / 1000 Gastric Drainage 150 / 150 Right Nare Nasogastric Tube 150 / 150 Other: Date of Last Bowel Movement 12/17/17 # Bowel Movements 0 0 Result Diagrams: 12/18/17 05:50 12/20/17 04:50 Objective Remarks: GENERAL: Obese female who is orotracheally intubated. She has been sedated with Versed 5 mg/h, fentanyl 100 mcg/hr SKIN: Warm and dry. HEAD: Atraumatic. Normocephalic. EYES: Right pupil 2 mm reactive, left pupil 2 mm rebound. No scleral icterus. No injection or drainage. ENT: No nasal bleeding or discharge. Mucous membranes pink and moist. NECK: Trachea midline. No JVD. CARDIOVASCULAR: Regular rate and rhythm. 2 out of 6 systolic murmur left lower sternal border RESPIRATORY: Synchronous with ventilator with no accessory muscle use. Coarse breath sounds bilaterally. GASTROINTESTINAL: Abdomen soft, non-tender, nondistended. Tube feeds running at 50 mL/h ( low residuals-- less than 30 mL's per RN) MUSCULOSKELETAL: Extremities without clubbing, cyanosis. Trace edema. NEUROLOGICAL: No eye opening to deep noxious stimuli. Sedation tapered and there was extensor posturing BLE, lower extremities then rigid and shaking. BUE - No response to noxious stimuli. Assessment and Plan - Problem List (1) Basal ganglia hemorrhage Code(s): I61.0 - Nontraumatic intracerebral hemorrhage in hemisphere, subcortical Status: Acute (2) Acute respiratory failure Code(s): J96.00 - Acute respiratory failure, unspecified whether with hypoxia or hypercapnia Status: Acute (3) Malignant essential hypertension Code(s): I10 - Essential (primary) hypertension Status: Acute (4) Microcytic anemia Code(s): D50.9 - Iron deficiency anemia, unspecified Status: Chronic - Assessment and Plan Plan: Neuro/Psych: Acute left basal ganglia hemorrhagic CVA CT brain 12/16 revealed evolving left basal ganglia IPH 4.8 x 2.2 cm with 6 mm left to right subfalcine herniation shift. Left lateral ventricle moderately effaced. Followed by neurosurgery/Dr. Cyr. Repeat CT brain 12/21. Goal keep sodium between 150-155. Currently sodium is 154 and 3% is on hold. Levetiracetam 500 mg IV twice daily for seizure prophylaxis Acetaminophen 650 mg by tube every 6 hours as needed fever Currently on Versed and fentanyl for sedation and ventilator synchrony EEG 8/1encephalopathy, no seizures CV: Hypertensive emergency Nicardipine infusion as needed for BP control, currently at 12.5 mg/hr As needed labetalol IV/ hydralazine po (due to shortage of IV). On lisinopril 20 mg twice daily, Norvasc 10 mg daily. Increase metoprolol tartrate 75 mg q6 hours with hold orders for heart rate. Resp: Acute respiratory failure [facility] 14/05/25/39. Ventilator bundle Albuterol/ipratropium aerosols every 4 hours with albuterol aerosols every 2 hours as needed for dyspnea Spontaneous breathing trials as clinically indicated, mental status will not permit extubation GI: Tube feeding with vital 1.5 High protein goal 50 cc an hour per nutrition recs. D/c supplemental whey protein per nutrition recs. Famotidine for GI prophylaxis Docusate sodium/senna 1 tablet twice daily for bowel regimen Having BMs. Endo: Sliding scale insulin with aspart insulin/every 6 hours low regimen to maintain euglycemia Renal: Creatinine currently within normal limits Monitor urine output. Accurate I's and O's Maintain Trejo catheter for comfort (family leaning toward comfort care and probable withdrawal). Heme: Microcytic anemia Monitor CBC daily. Follow trend ID: Monitor for signs of infection FEN: Hypernatremia, therapeutic Replace electrolytes as clinically indicated Check sodiums every 6 hours. Goal 150-155 Access -Right subclavian CVL placed 12/15 #6. Prophylaxis -GI -famotidine -DVT -SCD/holding pharmacological prophylaxis status post left basal ganglia hemorrhage Level 3 follow-up Aunt updated at bedside.
[2017-12-20] MEDS: amLODIPine 10 MG Tablet PO SCH (08:31)
[2017-12-20] MEDS: Metoprolol Tartrate 50 MG Tablet PO SCH ×2 (08:31→14:49)
[2017-12-20] MEDS: Beneprotein Powder Packet G-TUBE SCH (10:17)
--- NOTE | 2017-12-20 10:37 | P.PNNS ---
Subjective Interval history: 12/20: off propofol, on versed and fentanyl drips. EEG negative for seizures. Physical Exam Vital signs: Vital Signs 12/19/17 11:11 12/19/17 12:00 12/19/17 15:26 Temperature 100.1 F H Pulse Rate 70 70 70 Respiratory Rate 16 16 Blood Pressure 118/69 Pulse Oximetry 100 100 12/19/17 16:00 12/19/17 19:00 12/19/17 20:00 Temperature 100.1 F H 98.7 F Pulse Rate 70 74 79 Respiratory Rate 16 16 Blood Pressure 118/69 154/74 H Pulse Oximetry 100 12/19/17 20:36 12/19/17 23:32 12/19/17 23:43 Temperature Pulse Rate 79 Respiratory Rate 16 16 16 Blood Pressure Pulse Oximetry 100 100 12/20/17 00:00 12/20/17 03:20 12/20/17 04:00 Temperature 99.2 F 98.9 F Pulse Rate 75 76 Respiratory Rate 16 16 16 Blood Pressure 127/75 144/56 H Pulse Oximetry 100 100 100 12/20/17 06:05 12/20/17 07:45 12/20/17 08:00 Temperature 99.1 F Pulse Rate 76 88 Respiratory Rate 16 16 16 Blood Pressure 162/58 H Pulse Oximetry 99 100 Intake & Output 12/19/17 12/20/17 12/20/17 18:59 06:59 18:59 Intake Total 820 / 820 2155 / 2155 830 / 830 Output Total 700 / 700 2150 / 2150 Balance 120 / 120 5 / 5 830 / 830 Weight 101.4 kg Intake: IV 655 / 655 300 / 300 830 / 830 Versed Inj 50 mg In 50 ml @ 2 50 / 50 50 / 50 MG/HR 2 mls/hr IV.CONT TITRATE PRN Rx#:[id number] NS Inj 1,000 ML @ 30 mls/hr IV. 0 / 0 CONT .Q24H [facility] Rx#:[id number] Cardene Inj 50 MG In NS Inj 230 500 / 500 200 / 200 ML @ 5 MG/HR 25 mls/hr IV.CONT TITRATE PRN Rx#:[id number] fentaNYL 10 mcg/mL Premix Drip 250 / 250 2,500 mcg In 250 ml @ 50 MCG/HR 5 mls/hr IV.SIG TITRATE PRN Rx #:[id number] Keppra Inj 500 MG In NS Inj 100 105 / 105 105 / 105 ML @ 420 mls/hr IV.SIG Q12H [facility] Rx#:[id number] Tube Feeding 165 / 165 615 / 615 Tube Irrigant 80 / 80 Water Bolus Amount 320 / 320 Other 840 / 840 Output: Urine 1000 / 1000 Stool 0 / 0 Urine Amount (Catheter) 700 / 700 1000 / 1000 Indwelling Urethral Catheter 700 / 700 1000 / 1000 Gastric Drainage 150 / 150 Right Nare Nasogastric Tube 150 / 150 Other: Date of Last Bowel Movement 12/17/17 12/17/17 # Bowel Movements 0 Narrative: GENERAL: Intubated, sedated fentanyl and versed drips. SKIN: Warm and dry. HEAD: Normocephalic. EYES: No scleral icterus. No injection or drainage. Pupils 3-4 mm bilateral NECK: Supple, trachea midline. No JVD or lymphadenopathy. CARDIOVASCULAR: Regular rate and rhythm RESPIRATORY: Mechanically ventilated GASTROINTESTINAL: Abdomen soft MUSCULOSKELETAL: No cyanosis, or edema. NEURO: ?very minimal eye opening, does not follow commands. flexed left elbow with pain stim, slight withdrawal of left leg. minimal response right side. - Urinary Catheter Management Indwelling Urethral Catheter Cath placed during this visit: yes Reason for continuing: Hourly intake/output Insertion date: 12/14/17 Insertion time: 17:00 Assessment and Plan - Plan 52 y/o female Hypertensive crisis left basal ganglia hemorrhage This is a large bleed in her dominant hemisphere and a particularly worrisome spot and her prognosis is guarded Head CT 12/16/17 00:00 CONCLUSION: 1. Evolving left basal ganglia hemorrhage with stable 6 mm [id number] subfalcine shift. 2. No intercurrent hemorrhage or hydrocephalus. Plan: continue neuro checks, no surgical procedure is indicated at this time cont critical care management sedation weaning as tolerated and follow up neurological exam, cont keppra, EEG results reviewed f/u CT Brain tomorrow morning Dr. Cyr dw again in room
[2017-12-20] MEDS ORDERED: hydrALAZINE 25 MG Tablet NG/OG PRN (12:17)
[2017-12-20] MEDS: Metoprolol Tartrate 25 MG Tablet NG/OG SCH ×3 (14:23→23:44)
[2017-12-21] MEDS: Insulin NovoLOG Aspart Correctional Sugar Inj SQ SCH ×5 (00:39→18:20)
[2017-12-21] MEDS: Midazolam 50 MG/50 ML Inj 50 MG/50 ML BAG IV.CONT PRN ×2 (03:33→13:20)
[2017-12-21] MEDS: niCARdipine Inj 50 MG in Sodium Chlor 0.9% Inj 230 ML IV.CONT PRN ×3 (03:54→13:46)
[2017-12-21 04:23] LABS: Baso % (Auto) 0.5 % (0.0-2.0); Eos # (Auto) 0.2 th/mm3 (0.0-0.4); Eos % (Auto) 2.9 % (0.0-4.0); Lymph # (Auto) 0.9 th/mm3 (1.0-4.8); Lymph % (Auto) 13.9 % (9.0-44.0); Mean Corpuscular HGB Conc 31.6 % (32.0-36.0); Mean Corpuscular Hemoglobin 21.3 pg (27.0-34.0); Mean Corpuscular Volume 67.5 fL (80.0-100.0); Mean Platelet Volume 7.5 fL (7.0-11.0); Mono # (Auto) 0.7 th/mm3 (0.0-0.9); Neut # (Auto) 4.9 th/mm3 (1.8-7.7); Neut % (Auto) 71.7 % (16.0-70.0); Platelet Count 243 th/mm3 (150-450); Red Cell Distribution Width 18.5 % (11.6-17.2); White Blood Count 6.8 th/mm3 (4.0-11.0)
[2017-12-21 04:37] LABS: Hemoglobin 6.2 gm/dL (11.6-15.3)
[2017-12-21 04:38] LABS: Hematocrit 19.6 % (35.0-46.0)
[2017-12-21 04:48] LABS: Anion Gap 8 meq/L (5-15); Blood Urea Nitrogen 18 mg/dL (7-18); Calcium 7.8 mg/dL (8.5-10.1); Carbon Dioxide 22.8 meq/L (21.0-32.0); Chloride 122 meq/L (98-107); Glomerular Filtration Rate Greater Than 89 mL/min (>89); Glucose,Random 139 mg/dL (74-106); Potassium 3.6 meq/L (3.5-5.1); Sodium 153 meq/L (136-145)
[2017-12-21] MEDS: Metoprolol Tartrate 25 MG Tablet NG/OG SCH ×2 (06:15→07:38)
[2017-12-21 07:05] LABS: Eosinophils 2 % (0-4); Lymphocytes 16 % (9-44); Metamyelocytes 5 % (0-1); Monocytes 3 % (0-8); Myelocytes 2 % (0-0)
[2017-12-21 07:06] LABS: Platelet Estimate Normal (Normal); Platelet Morphology Normal (Normal)
[2017-12-21 07:07] LABS: Ovalocytes 1+
[2017-12-21] MEDS: Senna/Docusate Sodium 8.6/50 MG Tablet PO SCH ×2 (08:01→20:06)
[2017-12-21] MEDS: Lisinopril 20 MG Tablet PO SCH ×2 (08:01→20:06)
[2017-12-21] MEDS: Hypromellose 0.3% Opth Gel 10 GM Bottle EACH EYE SCH ×2 (08:02→20:11)
[2017-12-21] MEDS: amLODIPine 10 MG Tablet PO SCH (08:02)
[2017-12-21] MEDS: Famotidine PF Inj 20 MG/2 ML Vial IV.PUSH SCH (08:02)
--- NOTE | 2017-12-21 09:52 | P.PNCC ---
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 She has been previously healthy otherwise but yesterday developed some right-sided weakness and difficulty finding words. On arrival to the emergency department she was crisis with systolic blood pressure greater than 220 and CAT scan of the head revealed a 3.9 cm left-sided parenchymal brain hemorrhage based in the basal ganglia. Blood pressure was immediately controlled with intravenous Cardene infusion and she was transferred to the intensive care unit for further evaluation. 12/15: Unable to protect her airway last night and required endotracheal intubation and mechanical ventilation. Blood pressure control has been acceptable with Cardene. Lengthy discussion with her at the bedside this morning. He states quite clearly that she would be opposed to long-term support with the ventilator. He understands that the short-term use is not in conflict with her wishes. 12/16: Enlarging bleed with vasogenic edema and mass effect. Remains ventilator dependent. 12/17: Afebrile. Remains hypertensive on nicardipine drip at 15 mg an hour. No cough or gag. Minimal withdrawal left upper extremity. 12/18: Remains intubated sedated remains very critical. Currently on 3% saline to maintain sodium close to 150. Neuro exam reveals localizing on the left upper extremity withdrawing bilateral lower extremity and also withdrawing right upper extremity 12/19: Remains intubated sedated, no acute events overnight. Sodium is 152 now. Restarted on Cardene infusion for uncontrolled hypertension. Neuro exam remains same. Continues to localize with left upper extremity withdraws all other extremities. Repeat EEG per Dr. Cyr 12/20 No significant change. Remains on sedation because desats, has shaking movements during sedation vacation. Dr. Cyr discussed poor prognosis with family today. Repeat CT brain ordered for tomorrow per Neurosurgery. EEG repeated yesterday - diffuse slowing of background consistent with moderately severe encephalopathic process. No epileptiform features. Remains Intubated and sedated on cardene drip. Sodium 154. SUBJECTIVE: 12/21: Resting in bed in no acute distress. Hemoglobin 6.2 this a.m. Requiring 1 unit PRBCs currently. Family at bedside. Repeat head CT brain pending Objective Vital Signs / I&O: Vital Signs 12/20/17 10:00 12/20/17 11:37 12/20/17 12:00 Temperature 100.9 F H Pulse Rate 77 69 84 Respiratory Rate 16 16 Blood Pressure 142/52 H Pulse Oximetry 100 100 12/20/17 14:00 12/20/17 16:00 12/20/17 16:31 Temperature 100.4 F H Pulse Rate 81 70 83 Respiratory Rate 16 16 Blood Pressure 136/50 L Pulse Oximetry 100 100 12/20/17 18:00 12/20/17 19:51 12/20/17 19:53 Temperature Pulse Rate 68 69 Respiratory Rate 16 16 Blood Pressure Pulse Oximetry 100 12/20/17 20:00 12/20/17 22:00 12/21/17 00:00 Temperature 99.8 F H 100.0 F H Pulse Rate 71 71 78 Respiratory Rate 16 16 Blood Pressure 127/49 L 158/71 H Pulse Oximetry 100 100 12/21/17 00:02 12/21/17 00:03 12/21/17 02:00 Temperature Pulse Rate 82 70 Respiratory Rate 16 16 Blood Pressure Pulse Oximetry 100 12/21/17 03:28 12/21/17 04:00 12/21/17 06:00 Temperature 99.7 F H Pulse Rate 84 71 70 Respiratory Rate 16 16 Blood Pressure 120/46 L Pulse Oximetry 100 12/21/17 07:16 12/21/17 07:44 12/21/17 07:52 Temperature 99.4 F 99.4 F Pulse Rate 82 84 83 Respiratory Rate 16 16 17 Blood Pressure 173/69 H 164/70 H Pulse Oximetry 100 99 100 Intake & Output 12/20/17 12/21/17 12/21/17 18:59 06:59 18:59 Intake Total 2710 / 2710 1213 / 1213 400 / 400 Output Total 850 / 850 750 / 750 Balance 1860 / 1860 463 / 463 400 / 400 Weight 102 kg Intake: IV 1705 / 1705 705 / 705 Versed Inj 50 mg In 50 ml @ 2 50 / 50 100 / 100 MG/HR 2 mls/hr IV.CONT TITRATE PRN Rx#:[id number] NS Inj 1,000 ML @ 30 mls/hr IV. 0 / 0 CONT .Q24H [facility] Rx#:[id number] Cardene Inj 50 MG In NS Inj 230 700 / 700 500 / 500 ML @ 5 MG/HR 25 mls/hr IV.CONT TITRATE PRN Rx#:[id number] fentaNYL 10 mcg/mL Premix Drip 220 / 220 2,500 mcg In 250 ml @ 50 MCG/HR 5 mls/hr IV.SIG TITRATE PRN Rx #:[id number] Keppra Inj 500 MG In NS Inj 100 210 / 210 105 / 105 ML @ 420 mls/hr IV.SIG Q12H [facility] Rx#:[id number] Tube Feeding 545 / 545 508 / 508 Other 460 / 460 Intake (Blood Product) Amt 400 / 400 Rbc As-3 Leukoreduced Unit 400 / 400 [id number] Rbc As-3 Leukoreduced Unit 0 / 0 [id number] Output: Urine Amount (Catheter) 850 / 850 750 / 750 Indwelling Urethral Catheter 850 / 850 750 / 750 Other: Date of Last Bowel Movement 12/17/17 12/17/17 # Bowel Movements 0 0 Result Diagrams: 12/21/17 04:05 12/21/17 04:05 Imaging: ITS Impressions Head CT 12/16/17 00:00 CONCLUSION: 1. Evolving left basal ganglia hemorrhage with stable 6 mm [id number] subfalcine shift. 2. No intercurrent hemorrhage or hydrocephalus. . Chest X-Ray 12/19/17 00:00 CONCLUSION: Improved aeration. Objective Remarks: GENERAL: Obese female who is orotracheally intubated. She has been sedated with Versed 5 mg/h, fentanyl 100 mcg/hr SKIN: Warm and dry. HEAD: Atraumatic. Normocephalic. EYES: Right pupil 2 mm reactive, left pupil 2 mm rebound. No scleral icterus. No injection or drainage. ENT: No nasal bleeding or discharge. Mucous membranes pink and moist. NECK: Trachea midline. No JVD. CARDIOVASCULAR: Regular rate and rhythm. S1, S2. No S4. 2 out of 6 systolic murmur left lower sternal border RESPIRATORY: Coarse breath sounds bilaterally. No wheezing. Symmetrical excursion. GASTROINTESTINAL: Abdomen soft, non-tender, nondistended. Hypoactive bowel sounds are appreciated MUSCULOSKELETAL: Extremities with trace bilateral lower extremity edema NEUROLOGICAL: No eye opening to deep noxious stimuli. Sedation tapered and there was extensor posturing BLE, lower extremities then rigid and shaking. BUE - No response to noxious stimuli. Assessment and Plan - Assessment and Plan Plan: Neuro/Psych: Acute left basal ganglia hemorrhagic CVA CT brain 12/16 revealed evolving left basal ganglia IPH 4.8 x 2.2 cm with 6 mm left to right subfalcine herniation shift. Left lateral ventricle moderately effaced. Followed by neurosurgery/Dr. Cyr. Repeat CT brain 12/21. Goal keep sodium between 150-155. Currently sodium is 154 and 3% is on hold. Levetiracetam 500 mg IV twice daily for seizure prophylaxis Acetaminophen 650 mg by tube every 6 hours as needed fever Currently on midazolam and fentanyl for sedation and ventilator synchrony EEG 12/19 diffuse slowing of background consistent with moderately severe encephalopathic processencephalopathy, no epileptiform activity CV: Hypertensive emergency Nicardipine infusion as needed for BP control, currently at 15 mg/hr As needed labetalol IV/clonidine OG On lisinopril 20 mg twice daily, amlodipine 10 mg daily. Change metoprolol tartrate to carvedilol 25 mg twice daily and add hydralazine 25 mg 3 times daily Resp: Acute respiratory failure PR[facility] 14/500/1.05/25/39. Ventilator bundle Albuterol/ipratropium aerosols every 4 hours with albuterol aerosols every 2 hours as needed for dyspnea Spontaneous breathing trials as clinically indicated, mental status will not permit extubation GI: Hypoalbuminemia Tube feeding with vital 1.5 High protein goal 50 cc an hour per nutrition recs. Lansoprazole for GI prophylaxis Docusate sodium/senna 1 tablet twice daily for bowel regimen Endo: Sliding scale insulin with aspart insulin/every 6 hours low regimen to maintain euglycemia Renal: Creatinine currently within normal limits Monitor urine output. Accurate I's and O's Maintain Trejo catheter for comfort (family leaning toward comfort care and probable withdrawal). Heme: Normocytic anemia Monitor CBC daily. Follow trend ID: Monitor for signs of infection FEN: Hypernatremia, therapeutic Replace electrolytes as clinically indicated Check sodiums every 6 hours. Goal 150-155 Access -Right subclavian CVL placed 12/15 #7 Prophylaxis -GI -lansoprazole -DVT -SCD/holding pharmacological prophylaxis status post left basal ganglia hemorrhage Level 2 follow-up
[2017-12-21] MEDS ORDERED: Glycerin Adult 2 GM Supp RECTAL ONE (09:53)
[2017-12-21] MEDS ORDERED: Mineral Oil 55% Emulsion 480 ML PO ONE (10:50)
[2017-12-21] MEDS ORDERED: Methylnaltrexone Inj 12 MG/0.6 ML Vial SQ ONE (10:50)
[2017-12-21] MEDS: hydrALAZINE 25 MG Tablet PO SCH ×2 (12:58→18:00)
[2017-12-21] MEDS: fentaNYL 10 mcg/mL Premix Drip 2,500 MCG/250 ML BAG IV.SIG PRN (14:57)
[2017-12-21] MEDS: Sod Chloride 0.9% Inj 1,000 ML IV.CONT SCH (18:01)
--- NOTE | 2017-12-21 19:00 | P.PNNS ---
Subjective Interval history: 12/21. No improvement. Family at bedside Physical Exam Vital signs: Vital Signs 12/20/17 19:51 12/20/17 19:53 12/20/17 20:00 Temperature 99.8 F H Pulse Rate 69 71 Respiratory Rate 16 16 16 Blood Pressure 127/49 L Pulse Oximetry 100 100 12/20/17 22:00 12/21/17 00:00 12/21/17 00:02 Temperature 100.0 F H Pulse Rate 71 78 82 Respiratory Rate 16 16 Blood Pressure 158/71 H Pulse Oximetry 100 12/21/17 00:03 12/21/17 02:00 12/21/17 03:28 Temperature Pulse Rate 70 84 Respiratory Rate 16 16 Blood Pressure Pulse Oximetry 100 12/21/17 04:00 12/21/17 06:00 12/21/17 07:16 Temperature 99.7 F H 99.4 F Pulse Rate 71 70 82 Respiratory Rate 16 16 Blood Pressure 120/46 L 173/69 H Pulse Oximetry 100 100 12/21/17 07:44 12/21/17 07:52 12/21/17 08:00 Temperature 99.4 F 100.9 F H Pulse Rate 84 83 78 Respiratory Rate 16 17 16 Blood Pressure 164/70 H 142/90 H Pulse Oximetry 99 100 100 12/21/17 10:00 12/21/17 11:38 12/21/17 12:00 Temperature 101 F H Pulse Rate 74 81 88 Respiratory Rate 16 16 Blood Pressure 123/65 Pulse Oximetry 100 100 12/21/17 14:00 12/21/17 15:40 12/21/17 16:00 Temperature 99.8 F H Pulse Rate 78 82 80 Respiratory Rate 16 16 Blood Pressure 114/62 Pulse Oximetry 96 95 12/21/17 18:00 Temperature Pulse Rate 96 H Respiratory Rate Blood Pressure Pulse Oximetry Intake & Output 12/20/17 12/21/17 12/21/17 18:59 06:59 18:59 Intake Total 2710 / 2710 1213 / 1213 2491 / 2491 Output Total 850 / 850 750 / 750 900 / 900 Balance 1860 / 1860 463 / 463 1591 / 1591 Weight 102 kg Intake: IV 1705 / 1705 705 / 705 905 / 905 Versed Inj 50 mg In 50 ml @ 2 50 / 50 100 / 100 50 / 50 MG/HR 2 mls/hr IV.CONT TITRATE PRN Rx#:[id number] NS Inj 1,000 ML @ 30 mls/hr IV. 0 / 0 CONT .Q24H [facility] Rx#:[id number] Cardene Inj 50 MG In NS Inj 230 700 / 700 500 / 500 500 / 500 ML @ 5 MG/HR 25 mls/hr IV.CONT TITRATE PRN Rx#:[id number] fentaNYL 10 mcg/mL Premix Drip 220 / 220 250 / 250 2,500 mcg In 250 ml @ 50 MCG/HR 5 mls/hr IV.SIG TITRATE PRN Rx #:[id number] Keppra Inj 500 MG In NS Inj 100 210 / 210 105 / 105 105 / 105 ML @ 420 mls/hr IV.SIG Q12H [facility] Rx#:[id number] Tube Feeding 545 / 545 508 / 508 546 / 546 Other 460 / 460 240 / 240 Intake (Blood Product) Amt 800 / 800 Rbc As-3 Leukoreduced Unit 400 / 400 [id number] Rbc As-3 Leukoreduced Unit 400 / 400 [id number] Output: Urine Amount (Catheter) 850 / 850 750 / 750 900 / 900 Indwelling Urethral Catheter 850 / 850 750 / 750 900 / 900 Other: Date of Last Bowel Movement 12/17/17 12/17/17 12/17/17 # Bowel Movements 0 0 0 Narrative: GENERAL: Intubated, sedated fentanyl and versed drips. SKIN: Warm and dry. HEAD: Normocephalic. EYES: No scleral icterus. No injection or drainage. Pupils 3-4 mm bilateral NECK: Supple, trachea midline. No JVD or lymphadenopathy. CARDIOVASCULAR: Regular rate and rhythm RESPIRATORY: Mechanically ventilated GASTROINTESTINAL: Abdomen soft MUSCULOSKELETAL: No cyanosis, or edema. NEURO: ?very minimal eye opening, does not follow commands. flexed left elbow with pain stim, slight withdrawal of left leg. minimal response right side. - Urinary Catheter Management Indwelling Urethral Catheter Cath placed during this visit: yes Reason for continuing: Terminally ill/Comfort care Insertion date: 12/14/17 Insertion time: 17:00 Assessment and Plan - Plan 52 y/o female Hypertensive crisis left basal ganglia hemorrhage This is a large bleed in her dominant hemisphere and a particularly worrisome spot and her prognosis is guarded continue neuro checks, no surgical procedure is indicated at this time cont critical care management sedation weaning as tolerated and follow up neurological exam, cont keppra, EEG results reviewed Daily PT and OT Renal: Continue to monitor closely urine output, BUN and creatinine Endocrine: Continue to Monitor serial Acu checks and SSI as needed in detail ID continue to monitor for signs of infection Continue Protonix for stress ulcer prophylaxis Continue Joe menezes and SCD's for DVT prophylaxis Discussed with her family
[2017-12-21] MEDS: Carvedilol 12.5 MG Tablet PO SCH (20:06)
[2017-12-21] MEDS: Polyethylene Glycol 3350 17 GM Packet PO SCH (20:10)
--- NOTE | 2017-12-21 22:16 | CT ---
EXAM DATE: 12/21/2017 10:05 PM EDT AGE/SEX: 52 years / Female INDICATIONS: Follow up intracerebral hemorrhage. CLINICAL DATA: This is the patient's initial encounter. Patient reports that signs and symptoms have been present for 1 day and indicates a pain score of 0/10. MEDICAL/SURGICAL HISTORY: Hypertension. None. RADIATION DOSE: 52.13 CTDI (mGy) COMPARISON: [facility] – [place], CT HEAD W/O CONTRAST, 12/16/2017. . TECHNIQUE: CT of the head without contrast. Using automated exposure control and adjustment of the mA and/or kV according to patient size, radiation dose was kept as low as reasonably achievable to ob tain optimal diagnostic quality images. DICOM format image data is available electronically for revi ew and comparison. FINDINGS: There is a 5.2 x 2.4 cm hemorrhage centered in the left basal ganglia with surrounding edema and some mass effect. There is about 3 mm of vudl-yb-iuspr midline shift. Nasogastric tube is seen. There is fluid in the paranasal sinuses with mucosal thickening. No acute bony abnormalities. CONCLUSION: 1. Evolving hemorrhage in the left basal ganglia and left prior exam with mild midline shift. There is some surrounding edema. 2. Fluid in the paranasal sinuses. . Electronically signed by: Jovan Stephens MD 12/21/2017 10:15 PM EDT
[2017-12-22] MEDS: Insulin NovoLOG Aspart Correctional Sugar Inj SQ SCH ×5 (00:55→23:23)
[2017-12-22] MEDS: Midazolam 50 MG/50 ML Inj 50 MG/50 ML BAG IV.CONT PRN ×3 (02:41→22:59)
[2017-12-22] MEDS: Labetalol HCl Inj 100 MG/20 ML Vial IV.PUSH PRN ×4 (02:42→23:41)
[2017-12-22 06:16] LABS: Baso # (Auto) 0.1 th/mm3 (0.0-0.2); Baso % (Auto) 0.6 % (0.0-2.0); Eos # (Auto) 0.1 th/mm3 (0.0-0.4); Eos % (Auto) 1.1 % (0.0-4.0); Hematocrit 24.8 % (35.0-46.0); Lymph # (Auto) 0.9 th/mm3 (1.0-4.8); Lymph % (Auto) 10.8 % (9.0-44.0); Mean Corpuscular HGB Conc 32.4 % (32.0-36.0); Mean Platelet Volume 7.8 fL (7.0-11.0); Mono # (Auto) 0.8 th/mm3 (0.0-0.9); Mono % (Auto) 9.9 % (0.0-8.0); Neut # (Auto) 6.6 th/mm3 (1.8-7.7); Neut % (Auto) 77.6 % (16.0-70.0); Platelet Count 280 th/mm3 (150-450); Red Cell Distribution Width 20.1 % (11.6-17.2); White Blood Count 8.5 th/mm3 (4.0-11.0)
[2017-12-22 06:44] LABS: Anion Gap 10 meq/L (5-15); Blood Urea Nitrogen 15 mg/dL (7-18); Calcium 8.2 mg/dL (8.5-10.1); Carbon Dioxide 23.4 meq/L (21.0-32.0); Chloride 119 meq/L (98-107); Glomerular Filtration Rate Greater Than 89 mL/min (>89); Glucose,Random 120 mg/dL (74-106); Magnesium 2.3 mg/dL (1.5-2.5); Phosphorus 3.7 mg/dL (2.5-4.9); Potassium 3.7 meq/L (3.5-5.1); Sodium 152 meq/L (136-145)
[2017-12-22] MEDS ORDERED: Methylnaltrexone Inj 12 MG/0.6 ML Vial SQ ONE (08:28)
--- NOTE | 2017-12-22 08:36 | P.PNCC ---
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 She has been previously healthy otherwise but yesterday developed some right-sided weakness and difficulty finding words. On arrival to the emergency department she was crisis with systolic blood pressure greater than 220 [address] CAT scan of the head revealed a 3.9 cm left-sided parenchymal brain hemorrhage based in the basal ganglia. Blood pressure was immediately controlled with intravenous Cardene infusion and she was transferred to the intensive care unit for further evaluation. 12/15: Unable to protect her airway last night and required endotracheal intubation and mechanical ventilation. Blood pressure control has been acceptable with Cardene. Lengthy discussion with her at the bedside this morning. He states quite clearly that she would be opposed to long-term support with the ventilator. He understands that the short-term use is not in conflict with her wishes. 12/16: Enlarging bleed with vasogenic edema and mass effect. Remains ventilator dependent. 12/17: Afebrile. Remains hypertensive on nicardipine drip at 15 mg an hour. No cough or gag. Minimal withdrawal left upper extremity. 12/18: Remains intubated sedated remains very critical. Currently on 3% saline to maintain sodium close to 150. Neuro exam reveals localizing on the left upper extremity withdrawing bilateral lower extremity and also withdrawing right upper extremity 12/19: Remains intubated sedated, no acute events overnight. Sodium is 152 now. Restarted on Cardene infusion for uncontrolled hypertension. Neuro exam remains same. Continues to localize with left upper extremity withdraws all other extremities. Repeat EEG per Dr. Cyr 12/20 No significant change. Remains on sedation because desats, has shaking movements during sedation vacation. Dr. Cyr discussed poor prognosis with family today. Repeat CT brain ordered for tomorrow per Neurosurgery. EEG repeated yesterday - diffuse slowing of background consistent with moderately severe encephalopathic process. No epileptiform features. Remains Intubated and sedated on cardene drip. Sodium 154. 12/21: Resting in bed in no acute distress. Hemoglobin 6.2 this a.m. Requiring 1 unit PRBCs currently. Family at bedside. Repeat head CT brain pending SUBJECTIVE: 12/22: T-max 101.6. CT brain revealed 5.2 x 2.4 cm left basal ganglia hemorrhage with a 3 mm left to right shift. Neurologically unchanged. Tolerating tube feeds. No bowel movement since 12/17. Objective Vital Signs / I&O: Vital Signs 12/21/17 10:00 12/21/17 11:38 12/21/17 12:00 Temperature 101 F H Pulse Rate 74 81 88 Respiratory Rate 16 16 Blood Pressure 123/65 Pulse Oximetry 100 100 12/21/17 14:00 12/21/17 15:40 12/21/17 16:00 Temperature 99.8 F H Pulse Rate 78 82 80 Respiratory Rate 16 16 Blood Pressure 114/62 Pulse Oximetry 96 95 12/21/17 18:00 12/21/17 19:36 12/21/17 20:00 Temperature 99.4 F Pulse Rate 96 H 84 84 Respiratory Rate 16 18 Blood Pressure 100/76 Pulse Oximetry 96 99 12/21/17 22:00 12/21/17 22:24 12/21/17 23:33 Temperature Pulse Rate 98 H 92 H Respiratory Rate 16 Blood Pressure Pulse Oximetry 100 12/21/17 23:34 12/22/17 00:00 12/22/17 02:00 Temperature 97.6 F Pulse Rate 90 92 H Respiratory Rate 16 16 Blood Pressure 143/92 H Pulse Oximetry 97 94 L 12/22/17 04:00 12/22/17 05:02 12/22/17 06:00 Temperature 101.6 F H Pulse Rate 88 76 82 Respiratory Rate 18 16 Blood Pressure 163/76 H Pulse Oximetry 95 95 12/22/17 07:34 12/22/17 07:55 Temperature Pulse Rate 69 Respiratory Rate 16 19 Blood Pressure Pulse Oximetry 97 Intake & Output 12/21/17 12/22/17 12/22/17 18:59 06:59 18:59 Intake Total 2491 / 2491 457 / 457 Output Total 900 / 900 1450 / 1450 Balance 1591 / 1591 -993 / -993 Weight 102.7 kg Intake: IV 905 / 905 50 / 50 Versed Inj 50 mg In 50 ml @ 2 50 / 50 50 / 50 MG/HR 2 mls/hr IV.CONT TITRATE PRN Rx#:[id number] Cardene Inj 50 MG In NS Inj 230 500 / 500 ML @ 5 MG/HR 25 mls/hr IV.CONT TITRATE PRN Rx#:[id number] fentaNYL 10 mcg/mL Premix Drip 250 / 250 2,500 mcg In 250 ml @ 50 MCG/HR 5 mls/hr IV.SIG TITRATE PRN Rx #:[id number] Keppra Inj 500 MG In NS Inj 100 105 / 105 ML @ 420 mls/hr IV.SIG Q12H [facility] Rx#:[id number] Tube Feeding 546 / 546 407 / 407 Other 240 / 240 Intake (Blood Product) Amt 800 / 800 Rbc As-3 Leukoreduced Unit 400 / 400 [id number] Rbc As-3 Leukoreduced Unit 400 / 400 [id number] Output: Urine Amount (Catheter) 900 / 900 1450 / 1450 Indwelling Urethral Catheter 900 / 900 1450 / 1450 Other: Date of Last Bowel Movement 12/17/17 12/17/17 # Bowel Movements 0 0 Result Diagrams: 12/22/17 05:55 12/22/17 05:55 Imaging: ITS Impressions Chest X-Ray 12/19/17 00:00 CONCLUSION: Improved aeration. Head CT 12/21/17 06:00 CONCLUSION: 1. Evolving hemorrhage in the left basal ganglia and left prior exam with mild midline shift. There is some surrounding edema. 2. Fluid in the paranasal sinuses. . Objective Remarks: GENERAL: Obese female who is orotracheally intubated. She has been sedated with Versed 5 mg/h, fentanyl 100 mcg/hr SKIN: Warm and dry. HEAD: Atraumatic. Normocephalic. EYES: Right pupil 2 mm reactive, left pupil 2 mm rebound. No scleral icterus. No injection or drainage. ENT: No nasal bleeding or discharge. Mucous membranes pink and moist. NECK: Trachea midline. No JVD. CARDIOVASCULAR: Regular rate and rhythm. S1, S2. No S4. 2 out of 6 systolic murmur left lower sternal border RESPIRATORY: Coarse breath sounds bilaterally. No wheezing. Symmetrical excursion. GASTROINTESTINAL: Abdomen soft, non-tender, nondistended. Hypoactive bowel sounds are appreciated MUSCULOSKELETAL: Extremities with trace bilateral lower extremity edema NEUROLOGICAL: No eye opening to deep noxious stimuli. Sedation tapered and there was extensor posturing BLE, lower extremities then rigid and shaking. BUE - No response to noxious stimuli. Assessment and Plan - Assessment and Plan Plan: Neuro/Psych: Acute left basal ganglia hemorrhagic CVA CT brain 12/16 revealed evolving left basal ganglia IPH 4.8 x 2.2 cm with 6 mm left to right subfalcine herniation shift. Left lateral ventricle moderately effaced. Repeat CT brain 12/21 revealed 5.2 x 2.4 cm left basal ganglia hemorrhage with 3 mm left to right shift. Followed by neurosurgery/Dr. Cyr. Repeat CT brain 12/21. Goal keep sodium between 150-155. Currently sodium is 152 and 3% is at 10 cc an hour Levetiracetam 500 mg IV twice daily for seizure prophylaxis Acetaminophen 650 mg by tube every 6 hours as needed fever Currently on midazolam at 5 mg an hour and fentany at 100 mg an hour l for sedation and ventilator synchrony EEG 12/19 diffuse slowing of background consistent with moderately severe encephalopathic processencephalopathy, no epileptiform activity CV: Hypertensive emergency Nicardipine infusion as needed for BP control, currently at 15 mg/hr As needed labetalol IV/clonidine OG On lisinopril 20 mg twice daily, amlodipine 10 mg daily. Change metoprolol tartrate to carvedilol 25 mg twice daily and add hydralazine 50 mg 3 times daily Resp: Acute respiratory failure [facility] 16500/1.05/28/49 Ventilator bundle Albuterol/ipratropium aerosols every 4 hours with albuterol aerosols every 2 hours as needed for dyspnea Spontaneous breathing trials as clinically indicated, mental status will not permit extubation GI: Hypoalbuminemia Tube feeding with vital 1.5 High protein goal 50 cc an hour per nutrition recs. Lansoprazole for GI prophylaxis Docusate sodium/senna 1 tablet twice daily for bowel regimen. Add polythene glycol 17 g twice daily, lactulose 30 cc 4 times daily and methylnaltrexone 12 mg grams subcu 1 now. Check KUB. If fails, soapsuds enema/manual disimpaction Metoclopramide 5 mg 3 times daily Endo: Sliding scale insulin with aspart insulin/every 6 hours low regimen to maintain euglycemia Renal: Creatinine currently within normal limits Monitor urine output. Accurate I's and O's Maintain Trejo catheter for comfort (family leaning toward comfort care and probable withdrawal). Heme: Normocytic anemia Monitor CBC daily. Follow trend ID: Monitor for signs of infection FEN: Hypernatremia, therapeutic Replace electrolytes as clinically indicated Check sodiums every 6 hours. Goal 150-155 Access -Right subclavian CVL placed 12/15 #7 Prophylaxis -GI -lansoprazole -DVT -SCD/holding pharmacological prophylaxis status post left basal ganglia hemorrhage Level 2 follow-up
[2017-12-22] MEDS ORDERED: Potassium Chloride 25 MEQ Effervescent Tablet PO ONE (08:40)
--- NOTE | 2017-12-22 09:03 | XR ---
EXAM DATE: 12/22/2017 8:59 AM EDT AGE/SEX: 52 years / Female INDICATIONS: Distention. Possible ileus. CLINICAL DATA: This is the patient's subsequent encounter. Patient reports that signs and symptoms h ave been present for 1 day and indicates a pain score of Nonresponsive. MEDICAL/SURGICAL HISTORY: Hypertension. None. COMPARISON: No prior exams available for comparison. FINDINGS: The abdominal bowel gas pattern is normal. There is a gastric tube in the proximal port well below t he level the diaphragm. No abnormal masses, calcifications, or organomegaly is seen. The osseous str uctures are unremarkable. CONCLUSION: No evidence of bowel obstruction. Electronically signed by: Christie Pacheco MD 12/22/2017 9:02 AM EDT
[2017-12-22] MEDS: Carvedilol 12.5 MG Tablet PO SCH ×2 (09:15→20:47)
[2017-12-22] MEDS: amLODIPine 10 MG Tablet PO SCH (09:15)
[2017-12-22] MEDS: Hypromellose 0.3% Opth Gel 10 GM Bottle EACH EYE SCH ×2 (09:15→20:48)
[2017-12-22] MEDS: hydrALAZINE 25 MG Tablet PO SCH ×3 (09:15→18:38)
[2017-12-22] MEDS: Senna/Docusate Sodium 8.6/50 MG Tablet PO SCH ×2 (09:15→20:48)
[2017-12-22] MEDS: Lisinopril 20 MG Tablet PO SCH ×2 (09:15→20:47)
[2017-12-22] MEDS: Polyethylene Glycol 3350 17 GM Packet PO SCH (09:16)
--- NOTE | 2017-12-22 14:20 | P.PNNS ---
Subjective Interval history: No new problems reported per nursing staff. Remains intubated, sedated on fentanyl and Versed. Physical Exam Vital signs: Vital Signs 12/21/17 15:40 12/21/17 16:00 12/21/17 18:00 Temperature 99.8 F H Pulse Rate 82 80 96 H Respiratory Rate 16 16 Blood Pressure 114/62 Pulse Oximetry 96 95 12/21/17 19:36 12/21/17 20:00 12/21/17 22:00 Temperature 99.4 F Pulse Rate 84 84 98 H Respiratory Rate 16 18 Blood Pressure 100/76 Pulse Oximetry 96 99 12/21/17 22:24 12/21/17 23:33 12/21/17 23:34 Temperature Pulse Rate 92 H Respiratory Rate 16 16 Blood Pressure Pulse Oximetry 100 97 12/22/17 00:00 12/22/17 02:00 12/22/17 04:00 Temperature 97.6 F 101.6 F H Pulse Rate 90 92 H 88 Respiratory Rate 16 18 Blood Pressure 143/92 H 163/76 H Pulse Oximetry 94 L 95 12/22/17 05:02 12/22/17 06:00 12/22/17 07:34 Temperature Pulse Rate 76 82 Respiratory Rate 16 16 Blood Pressure Pulse Oximetry 95 97 12/22/17 07:55 12/22/17 12:37 12/22/17 12:39 Temperature Pulse Rate 69 71 Respiratory Rate 19 16 16 Blood Pressure Pulse Oximetry 93 L Intake & Output 12/21/17 12/22/17 12/22/17 18:59 06:59 18:59 Intake Total 2491 / 2491 457 / 457 50 / 50 Output Total 900 / 900 1450 / 1450 Balance 1591 / 1591 -993 / -993 50 / 50 Weight 102.7 kg Intake: IV 905 / 905 50 / 50 50 / 50 Versed Inj 50 mg In 50 ml @ 2 50 / 50 50 / 50 50 / 50 MG/HR 2 mls/hr IV.CONT TITRATE PRN Rx#:[id number] Cardene Inj 50 MG In NS Inj 230 500 / 500 ML @ 5 MG/HR 25 mls/hr IV.CONT TITRATE PRN Rx#:[id number] fentaNYL 10 mcg/mL Premix Drip 250 / 250 2,500 mcg In 250 ml @ 50 MCG/HR 5 mls/hr IV.SIG TITRATE PRN Rx #:[id number] Keppra Inj 500 MG In NS Inj 100 105 / 105 ML @ 420 mls/hr IV.SIG Q12H [facility] Rx#:[id number] Tube Feeding 546 / 546 407 / 407 Other 240 / 240 Intake (Blood Product) Amt 800 / 800 Rbc As-3 Leukoreduced Unit 400 / 400 [id number] Rbc As-3 Leukoreduced Unit 400 / 400 [id number] Output: Urine Amount (Catheter) 900 / 900 1450 / 1450 Indwelling Urethral Catheter 900 / 900 1450 / 1450 Other: Date of Last Bowel Movement 12/17/17 12/17/17 # Bowel Movements 0 0 Narrative: Intubated. Sedated on fentanyl and Versed. Respirations clear to auscultation Cardiac regular Abdomen soft Moderate distal lower extremity edema No response to voice. No eye-opening to voice or deep pain Pupils 2-3 mm nonreactive. Moderate disconjugate oculocephalic movements. Occasional spontaneous disconjugate extraocular movements. Right gaze preference No facial grimacing to deep pain Mild flexion left upper extremity to deep pain. - Urinary Catheter Management Indwelling Urethral Catheter Cath placed during this visit: yes Reason for continuing: Terminally ill/Comfort care Insertion date: 12/14/17 Insertion time: 17:00 Assessment and Plan - Plan Impression: 52 y/o female Hypertensive crisis left basal ganglia hemorrhage This is a large bleed in her dominant hemisphere and a particularly worrisome spot and her prognosis is guarded A 318 CT scan head images reviewed by the undersigned and with the family in the intensive surgical care unit on 12/22/2017. Findings as follows: There is a 5.2 x 2.4 cm hemorrhage centered in the left basal ganglia with surrounding edema and some mass effect. There is about 3 mm of apek-ni-eorly midline shift. Nasogastric tube is seen. There is fluid in the paranasal sinuses with mucosal thickening. No acute bony abnormalities. Plan: continue neuro checks, no surgical procedure is indicated at this time cont critical care management sedation weaning as tolerated and follow up neurological exam, cont keppra, EEG results reviewed Daily PT and OT Renal: Continue to monitor closely urine output, BUN and creatinine Endocrine: Continue to Monitor serial Acu checks and SSI as needed in detail ID continue to monitor for signs of infection Continue Protonix for stress ulcer prophylaxis Continue Joe hose and SCD's for DVT prophylaxis Discussed with her family impression:
[2017-12-22] MEDS: fentaNYL 10 mcg/mL Premix Drip 2,500 MCG/250 ML BAG IV.SIG PRN (16:55)
[2017-12-22] MEDS: Famotidine 20 MG Tablet PO SCH (20:47)
[2017-12-23] MEDS: Labetalol HCl Inj 100 MG/20 ML Vial IV.PUSH PRN ×4 (00:39→20:43)
[2017-12-23] MEDS: niCARdipine Inj 50 MG in Sodium Chlor 0.9% Inj 230 ML IV.CONT PRN ×2 (00:44→16:44)
[2017-12-23 02:59] LABS: Baso # (Auto) 0.1 th/mm3 (0.0-0.2); Baso % (Auto) 0.6 % (0.0-2.0); Eos # (Auto) 0.2 th/mm3 (0.0-0.4); Hematocrit 25.9 % (35.0-46.0); Hemoglobin 8.3 gm/dL (11.6-15.3); Lymph # (Auto) 1.1 th/mm3 (1.0-4.8); Lymph % (Auto) 13.5 % (9.0-44.0); Mean Corpuscular HGB Conc 32.1 % (32.0-36.0); Mean Corpuscular Hemoglobin 22.8 pg (27.0-34.0); Mean Platelet Volume 7.5 fL (7.0-11.0); Mono # (Auto) 0.7 th/mm3 (0.0-0.9); Mono % (Auto) 8.8 % (0.0-8.0); Neut # (Auto) 6.3 th/mm3 (1.8-7.7); Neut % (Auto) 75.1 % (16.0-70.0); Platelet Count 300 th/mm3 (150-450); Red Blood Count 3.64 mil/mm3 (4.00-5.30); Red Cell Distribution Width 20.6 % (11.6-17.2); White Blood Count 8.4 th/mm3 (4.0-11.0)
[2017-12-23 03:14] LABS: Anion Gap 6 meq/L (5-15); Blood Urea Nitrogen 22 mg/dL (7-18); Calcium 8.5 mg/dL (8.5-10.1); Chloride 120 meq/L (98-107); Glomerular Filtration Rate Greater Than 89 mL/min (>89); Glucose,Random 126 mg/dL (74-106); Magnesium 2.3 mg/dL (1.5-2.5); Phosphorus 3.2 mg/dL (2.5-4.9); Potassium 3.7 meq/L (3.5-5.1); Sodium 153 meq/L (136-145)
[2017-12-23] MEDS: Insulin NovoLOG Aspart Correctional Sugar Inj SQ SCH ×3 (05:48→17:29)
[2017-12-23] MEDS: Midazolam 50 MG/50 ML Inj 50 MG/50 ML BAG IV.CONT PRN ×2 (06:06→21:15)
[2017-12-23 06:52] LABS: ABG Base Excess 0.9 mmol/L (-2-2); ABG PCO2 37 mmHg (38-42); ABG PO2 65 mmHg (61-120)
--- NOTE | 2017-12-23 07:27 | P.PNCC ---
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 She has been previously healthy otherwise but yesterday developed some right-sided weakness and difficulty finding words. On arrival to the emergency department she was crisis with systolic blood pressure greater than 220 and CAT scan of the head revealed a 3.9 cm left-sided parenchymal brain hemorrhage based in the basal ganglia. Blood pressure was immediately controlled with intravenous Cardene infusion and she was transferred to the intensive care unit for further evaluation. 12/15: Unable to protect her airway last night and required endotracheal intubation and mechanical ventilation. Blood pressure control has been acceptable with Cardene. Lengthy discussion with her at the bedside this morning. He states quite clearly that she would be opposed to long-term support with the ventilator. He understands that the short-term use is not in conflict with her wishes. 12/16: Enlarging bleed with vasogenic edema and mass effect. Remains ventilator dependent. 12/17: Afebrile. Remains hypertensive on nicardipine drip at 15 mg an hour. No cough or gag. Minimal withdrawal left upper extremity. 12/18: Remains intubated sedated remains very critical. Currently on 3% saline to maintain sodium close to 150. Neuro exam reveals localizing on the left upper extremity withdrawing bilateral lower extremity and also withdrawing right upper extremity 12/19: Remains intubated sedated, no acute events overnight. Sodium is 152 now. Restarted on Cardene infusion for uncontrolled hypertension. Neuro exam remains same. Continues to localize with left upper extremity withdraws all other extremities. Repeat EEG per Dr. Cyr 12/20 No significant change. Remains on sedation because desats, has shaking movements during sedation vacation. Dr. Cyr discussed poor prognosis with family today. Repeat CT brain ordered for tomorrow per Neurosurgery. EEG repeated yesterday - diffuse slowing of background consistent with moderately severe encephalopathic process. No epileptiform features. Remains Intubated and sedated on cardene drip. Sodium 154. 12/21: Resting in bed in no acute distress. Hemoglobin 6.2 this a.m. Requiring 1 unit PRBCs currently. Family at bedside. Repeat head CT brain pending 12/22: T-max 101.6. CT brain revealed 5.2 x 2.4 cm left basal ganglia hemorrhage with a 3 mm left to right shift. Neurologically unchanged. Tolerating tube feeds. No bowel movement since 12/17. SUBJECTIVE: 8: T-max 100.6. Currently 99.7. -2 L overnight. Positive BM yesterday. Remains sedated on midazolam drip and fentanyl drip. Objective Vital Signs / I&O: Vital Signs 12/22/17 07:34 12/22/17 07:55 12/22/17 08:00 Temperature 99.1 F Pulse Rate 69 70 Respiratory Rate 16 19 16 Blood Pressure 153/72 H Pulse Oximetry 97 99 12/22/17 10:00 12/22/17 12:00 12/22/17 12:37 Temperature 100.0 F H Pulse Rate 75 75 Respiratory Rate 17 16 Blood Pressure 177/84 H Pulse Oximetry 94 L 93 L 12/22/17 12:39 12/22/17 14:00 12/22/17 15:55 Temperature Pulse Rate 71 80 Respiratory Rate 16 16 Blood Pressure Pulse Oximetry 96 12/22/17 15:58 12/22/17 16:00 12/22/17 18:00 Temperature 99.8 F H Pulse Rate 81 78 76 Respiratory Rate 16 16 Blood Pressure 158/70 H Pulse Oximetry 99 12/22/17 19:41 12/22/17 20:00 12/22/17 22:00 Temperature 100.6 F H Pulse Rate 82 76 78 Respiratory Rate 16 Blood Pressure 180/79 H Pulse Oximetry 95 12/22/17 23:07 12/22/17 23:12 12/23/17 00:00 Temperature 99.6 F Pulse Rate 78 71 Respiratory Rate 16 17 18 Blood Pressure 190/86 H Pulse Oximetry 95 12/23/17 02:00 12/23/17 03:06 12/23/17 03:59 Temperature Pulse Rate 71 74 Respiratory Rate 16 16 Blood Pressure Pulse Oximetry 96 12/23/17 04:00 12/23/17 06:00 Temperature 99.7 F H Pulse Rate 16 L 80 Respiratory Rate 16 Blood Pressure 140/54 L Pulse Oximetry Intake & Output 12/22/17 12/23/17 12/23/17 18:59 06:59 18:59 Intake Total 1013 / 1013 741 / 741 Output Total 2900 / 2900 900 / 900 Balance -1887 / -1887 -159 / -159 Weight 102.9 kg Intake: IV 405 / 405 205 / 205 Versed Inj 50 mg In 50 ml @ 2 50 / 50 100 / 100 MG/HR 2 mls/hr IV.CONT TITRATE PRN Rx#:[id number] fentaNYL 10 mcg/mL Premix Drip 250 / 250 2,500 mcg In 250 ml @ 50 MCG/HR 5 mls/hr IV.SIG TITRATE PRN Rx #:[id number] Keppra Inj 500 MG In NS Inj 100 105 / 105 105 / 105 ML @ 420 mls/hr IV.SIG Q12H [facility] Rx#:[id number] Tube Feeding 548 / 548 536 / 536 Tube Irrigant 60 / 60 Output: Stool 600 / 600 Urine Amount (Catheter) 2300 / 2300 900 / 900 Indwelling Urethral Catheter 2300 / 2300 900 / 900 Other: Date of Last Bowel Movement 12/22/17 12/23/17 # Bowel Movements 2 Result Diagrams: 12/23/17 02:42 12/23/17 02:42 Imaging: Chest X-Ray 12/14/17 16:19 CONCLUSION: No acute cardiopulmonary disease. Head CT 12/14/17 16:19 CONCLUSION: 1. Acute high density intraparenchymal hemorrhage centered in the left basal ganglia with mass effect and midline shift. Report was called by [Dr. Andres to Dr. Larsen at 1641 hours. ] Chest X-Ray 12/15/17 01:21 CONCLUSION: 1. Right mainstem intubation. 2. NGT beyond the GE junction. 3. Right subclavian central line with tip in the central SVC. No pneumothorax. 4. Complete opacification of the left hemithorax. Head CT 12/16/17 00:00 CONCLUSION: 1. Evolving left basal ganglia hemorrhage with stable 6 mm kyxx-sf-wfbbg subfalcine shift. 2. No intercurrent hemorrhage or hydrocephalus. . Chest X-Ray 12/18/17 06:00 CONCLUSION: 1. Repositioning of the endotracheal tube with improved aeration in the left lung. 2. Hazy opacity is now noted in both lung bases. Chest X-Ray 12/19/17 00:00 CONCLUSION: Improved aeration. Head CT 12/21/17 06:00 CONCLUSION: 1. Evolving hemorrhage in the left basal ganglia and left prior exam with mild midline shift. There is some surrounding edema. 2. Fluid in the paranasal sinuses. . Abdomen X-Ray 12/22/17 00:00 CONCLUSION: No evidence of bowel obstruction. Objective Remarks: GENERAL: Obese female who is orotracheally intubated. SKIN: Warm and dry. HEAD: Atraumatic. Normocephalic. EYES: Right pupil 2 mm reactive, left pupil 2 mm rebound. No scleral icterus. No injection or drainage. ENT: No nasal bleeding or discharge. Mucous membranes pink and moist. NECK: Trachea midline. No JVD. CARDIOVASCULAR: Regular rate and rhythm. S1, S2. No S4. 2 out of 6 systolic murmur left lower sternal border RESPIRATORY: Coarse breath sounds bilaterally. No wheezing. Symmetrical excursion. GASTROINTESTINAL: Abdomen soft, non-tender, nondistended. Hypoactive bowel sounds are appreciated MUSCULOSKELETAL: Extremities with trace bilateral lower extremity edema NEUROLOGICAL: No eye opening to deep noxious stimuli. Sedation tapered and there was extensor posturing BLE, lower extremities then rigid and shaking. BUE - No response to noxious stimuli. Assessment and Plan - Assessment and Plan Plan: Neuro/Psych: Acute left basal ganglia hemorrhagic CVA CT brain 12/16 revealed evolving left basal ganglia IPH 4.8 x 2.2 cm with 6 mm left to right subfalcine herniation shift. Left lateral ventricle moderately effaced. Repeat CT brain 12/21 revealed 5.2 x 2.4 cm left basal ganglia hemorrhage with 3 mm left to right shift. Followed by neurosurgery/Dr. Cyr. Goal keep sodium between 150-155. Currently sodium is 153 and 3% is at 10 cc an hour Levetiracetam 500 mg IV twice daily for seizure prophylaxis Acetaminophen 650 mg by tube every 6 hours as needed fever Currently on midazolam at 6 mg an hour and fentany at 150 mcg an hour for sedation and ventilator synchrony EEG 12/19 diffuse slowing of background consistent with moderately severe encephalopathic processencephalopathy, no epileptiform activity CV: Hypertensive emergency Nicardipine infusion as needed for BP control, currently at 2.5 mg/hr As needed labetalol IV/clonidine OG On lisinopril 20 mg twice daily, amlodipine 10 mg daily. Change metoprolol tartrate to carvedilol 25 mg twice daily and add hydralazine 75 mg 3 times daily Resp: Acute respiratory failure PR[facility] 15500/1.05/28/49 Ventilator bundle Albuterol/ipratropium aerosols every 4 hours with albuterol aerosols every 2 hours as needed for dyspnea Spontaneous breathing trials as clinically indicated, mental status will not permit extubation Follow-up chest x-ray in a.m. 12/24 with ABG GI: Hypoalbuminemia Tube feeding with vital 1.5 High protein goal 50 cc an hour per nutrition recs. famotidine for GI prophylaxis Docusate sodium/senna 1 tablet twice daily for bowel regimen. Metoclopramide 5 mg 3 times daily Endo: Sliding scale insulin with aspart insulin/every 6 hours low regimen to maintain euglycemia Renal: Creatinine currently within normal limits Monitor urine output. Accurate I's and O's Maintain Trejo catheter for comfort (family leaning toward comfort care and probable withdrawal). Heme: Microcytic anemia Monitor CBC daily. Follow trend No indication for transfusion of blood products at this time. Received 2 units PRBCs 12/21 ID: Monitor for signs of infection Check blood cultures 2, sputum and UA today 12/23 FEN: Hypernatremia, iatrogenic Replace electrolytes as clinically indicated Check sodiums every 6 hours. Goal 150-155 Access -Right subclavian CVL placed 12/15 #8 Left radial arterial line day #2 placed 12/22 Prophylaxis -GI -famotidine -DVT -SCD/holding pharmacological prophylaxis status post left basal ganglia hemorrhage Level 3 follow-up
[2017-12-23] MEDS: Carvedilol 12.5 MG Tablet PO SCH ×2 (08:10→20:05)
[2017-12-23] MEDS: Lisinopril 20 MG Tablet PO SCH ×2 (08:11→20:06)
[2017-12-23] MEDS: amLODIPine 10 MG Tablet PO SCH (08:11)
[2017-12-23] MEDS: Famotidine 20 MG Tablet PO SCH ×2 (08:11→20:05)
[2017-12-23] MEDS: hydrALAZINE 25 MG Tablet PO SCH ×3 (08:11→18:12)
[2017-12-23] MEDS: Hypromellose 0.3% Opth Gel 10 GM Bottle EACH EYE SCH ×2 (09:44→20:05)
[2017-12-23] MEDS: Senna/Docusate Sodium 8.6/50 MG Tablet PO SCH ×2 (09:44→20:06)
[2017-12-23 10:52] LABS: Bacteria,Urine Rare /hpf; Bilirubin,Urine Negative (Negative); Clarity,Urine Hazy (Clear); Color,Urine Yellow (Yellw/Straw); Glucose,Urine (UA) Negative (Negative); Hyaline Casts,Urine 4 /lpf (0-3); Leukocyte Esterase,Urine Large (Negative); Mucus,Urine Few /lpf (Occasional); Nitrite,Urine Negative (Negative); Specific Gravity,Urine 1.015 (1.002-1.035); Squamous Epithelial Cell,Urine 1 /hpf (0-5)
[2017-12-23] MEDS: fentaNYL 10 mcg/mL Premix Drip 2,500 MCG/250 ML BAG IV.SIG PRN (12:29)
--- NOTE | 2017-12-23 17:03 | XR ---
EXAM DATE: 12/23/2017 4:49 PM EDT AGE/SEX: 52 years / Female INDICATIONS: Congestion CLINICAL DATA: This is the patient's subsequent encounter. Patient reports that signs and symptoms h ave been present for 1 week and indicates a pain score of Nonresponsive. MEDICAL/SURGICAL HISTORY: Hypertension. None. COMPARISON: [facility] – [place], CHEST 1V SINGLE AP, 12/19/2017. . FINDINGS: Right central line in superior vena cava. Endotracheal tube in good position. NG enters stomach. Bila teral mostly basilar airspace disease with small effusions. Cardiomegaly. CONCLUSION: Bilateral mostly basilar airspace disease and small effusions. Cardiomegaly. Support apparatus in goo d position. Electronically signed by: Jovan Stephens MD 12/23/2017 5:02 PM EDT
--- NOTE | 2017-12-23 17:08 | P.PNNS ---
Physical Exam Vital signs: Vital Signs 12/22/17 18:00 12/22/17 19:41 12/22/17 20:00 Temperature 100.6 F H Pulse Rate 76 82 76 Respiratory Rate 16 Blood Pressure 180/79 H Pulse Oximetry 95 12/22/17 22:00 12/22/17 23:07 12/22/17 23:12 Temperature Pulse Rate 78 78 Respiratory Rate 16 17 Blood Pressure Pulse Oximetry 95 12/23/17 00:00 12/23/17 02:00 12/23/17 03:06 Temperature 99.6 F Pulse Rate 71 71 74 Respiratory Rate 18 16 Blood Pressure 190/86 H Pulse Oximetry 12/23/17 03:59 12/23/17 04:00 12/23/17 06:00 Temperature 99.7 F H Pulse Rate 16 L 80 Respiratory Rate 16 16 Blood Pressure 140/54 L Pulse Oximetry 96 12/23/17 07:00 12/23/17 07:42 12/23/17 08:00 Temperature 99.3 F Pulse Rate 71 76 Respiratory Rate 15 15 15 Blood Pressure 129/61 Pulse Oximetry 95 96 12/23/17 11:13 12/23/17 12:00 12/23/17 15:20 Temperature 100 F H Pulse Rate 71 74 78 Respiratory Rate 15 15 15 Blood Pressure 133/63 Pulse Oximetry 95 96 96 12/23/17 16:00 Temperature 101.7 F H Pulse Rate 77 Respiratory Rate 20 Blood Pressure 132/62 Pulse Oximetry 91 L Intake & Output 12/22/17 12/23/17 12/23/17 18:59 06:59 18:59 Intake Total 1013 / 1013 741 / 741 250 / 250 Output Total 2900 / 2900 900 / 900 Balance -1887 / -1887 -159 / -159 250 / 250 Weight 102.9 kg Intake: IV 405 / 405 205 / 205 250 / 250 Versed Inj 50 mg In 50 ml @ 2 50 / 50 100 / 100 MG/HR 2 mls/hr IV.CONT TITRATE PRN Rx#:[id number] fentaNYL 10 mcg/mL Premix Drip 250 / 250 250 / 250 2,500 mcg In 250 ml @ 50 MCG/HR 5 mls/hr IV.SIG TITRATE PRN Rx #:[id number] Keppra Inj 500 MG In NS Inj 100 105 / 105 105 / 105 ML @ 420 mls/hr IV.SIG Q12H JOAO Rx#:[id number] Tube Feeding 548 / 548 536 / 536 Tube Irrigant 60 / 60 Output: Stool 600 / 600 Urine Amount (Catheter) 2300 / 2300 900 / 900 Indwelling Urethral Catheter 2300 / 2300 900 / 900 Other: Date of Last Bowel Movement 12/22/17 12/23/17 12/23/17 # Bowel Movements 2 - Urinary Catheter Management Indwelling Urethral Catheter Cath placed during this visit: yes Reason for continuing: Terminally ill/Comfort care Insertion date: 12/14/17 Insertion time: 17:00 Assessment and Plan - Plan Impression: 52 y/o female Hypertensive crisis left basal ganglia hemorrhage This is a large bleed in her dominant hemisphere and a particularly worrisome spot and her prognosis is guarded A 318 CT scan head images reviewed by the undersigned and with the family in the intensive surgical care unit on 12/22/2017. Findings as follows: There is a 5.2 x 2.4 cm hemorrhage centered in the left basal ganglia with surrounding edema and some mass effect. There is about 3 mm of [id number] midline shift. Nasogastric tube is seen. There is fluid in the paranasal sinuses with mucosal thickening. No acute bony abnormalities. Plan: continue neuro checks, no surgical procedure is indicated at this time cont critical care management sedation weaning as tolerated and follow up neurological exam, cont keppra, EEG results reviewed Daily PT and OT Renal: Continue to monitor closely urine output, BUN and creatinine Endocrine: Continue to Monitor serial Acu checks and SSI as needed in detail ID continue to monitor for signs of infection Continue Protonix for stress ulcer prophylaxis Continue Joe menezes and SCD's for DVT prophylaxis Discussed with her family impression:
[2017-12-23] MEDS: Piperacil/Tazo 4.5 GM Premix 4.5 GM/100 ML BAG IV.SIG SCH (17:33)
[2017-12-23] MEDS ORDERED: Vancomycin Consult Pharmacy 1 EACH OTHER SCH (18:00)
[2017-12-23] MEDS ORDERED: Vancomycin Inj 2,000 MG in Sodium Chlor 0.9% Inj 500 ML IV.SIG ONE (20:00)
--- NOTE | 2017-12-23 21:35 | US ---
EXAM DATE: 12/23/2017 9:31 PM EDT AGE/SEX: 52 years / Female INDICATIONS: Bilateral leg swelling. CLINICAL DATA: This is the patient's initial encounter. Patient reports that signs and symptoms have been present for 1 day and indicates a pain score of Nonresponsive. MEDICAL/SURGICAL HISTORY: Hypertension. section. COMPARISON: No prior exams available for comparison. TECHNIQUE: Venous ultrasound of both lower extremities was performed from the inguinal ligament to t he proximal calf. Real-time, color Doppler and spectral tracing, compression and augmentation techni ques were used. FINDINGS: Right Leg: Normal compression of the deep venous system from the inguinal region to the proximal adalid f. No echogenic clot is seen. Normal response of the venous system to augmentation and respiration. Left Leg: Normal compression of the deep venous system from the inguinal region to the proximal calf . No echogenic clot is seen. Normal response of the venous system to augmentation and respiration. Other: None. CONCLUSION: Negative study. No venous thrombosis of either lower extremity. Electronically signed by: Mookie Vasquez MD 12/23/2017 9:34 PM EDT
[2017-12-24] MEDS: Piperacil/Tazo 4.5 GM Premix 4.5 GM/100 ML BAG IV.SIG SCH ×4 (00:22→19:14)
[2017-12-24] MEDS: fentaNYL 10 mcg/mL Premix Drip 2,500 MCG/250 ML BAG IV.SIG PRN (00:44)
[2017-12-24] MEDS: Insulin NovoLOG Aspart Correctional Sugar Inj SQ SCH ×4 (00:56→19:13)
[2017-12-24] MEDS: Midazolam 50 MG/50 ML Inj 50 MG/50 ML BAG IV.CONT PRN ×2 (01:20→05:59)
[2017-12-24] MEDS: Vancomycin Inj 1,000 MG in Sodium Chlor 0.9% Inj 250 ML IV.SIG SCH ×3 (04:23→20:41)
--- NOTE | 2017-12-24 04:52 | XR ---
EXAM DATE: 12/24/2017 4:49 AM EDT AGE/SEX: 52 years / Female INDICATIONS: Shortness of breath. CLINICAL DATA: This is the patient's subsequent encounter. Patient reports that signs and symptoms h ave been present for 1 week and indicates a pain score of Nonresponsive. MEDICAL/SURGICAL HISTORY: Hypertension. None. COMPARISON: [facility] – [place], CHEST 1V SINGLE AP, 12/23/2017. . FINDINGS: Endotracheal tube, right subclavian line and enteric tube again noted. There is cardiomegaly, consoli dation in the lower lobes identified as well as right middle lobe along the minor fissure. There may be a small left effusion. There is improved aeration of the right lung since the previous study. Osse ous structures are intact. CONCLUSION: Improved aeration right lower lobe otherwise able. Electronically signed by: Alex Baugh MD 12/24/2017 4:51 AM EDT
[2017-12-24 05:01] LABS: Albumin 1.8 g/dL (3.4-5.0); Anion Gap 8 meq/L (5-15); Aspartate Aminotransferase 28 U/L (15-37); Blood Urea Nitrogen 27 mg/dL (7-18); Calcium 8.2 mg/dL (8.5-10.1); Carbon Dioxide 25.6 meq/L (21.0-32.0); Chloride 120 meq/L (98-107); Glomerular Filtration Rate 67 mL/min (>89); Glucose,Random 107 mg/dL (74-106); Magnesium 2.2 mg/dL (1.5-2.5); Potassium 3.3 meq/L (3.5-5.1); Sodium 154 meq/L (136-145)
[2017-12-24 05:02] LABS: Alanine Aminotransferase 22 U/L (10-53); Phosphorus 3.8 mg/dL (2.5-4.9)
[2017-12-24 05:04] LABS: Alkaline Phosphatase 46 U/L (45-117); Total Protein 6.2 g/dL (6.4-8.2)
[2017-12-24 05:07] LABS: Baso % (Auto) 0.5 % (0.0-2.0); Eos # (Auto) 0.3 th/mm3 (0.0-0.4); Eos % (Auto) 3.9 % (0.0-4.0); Hematocrit 23.5 % (35.0-46.0); Hemoglobin 7.7 gm/dL (11.6-15.3); Lymph # (Auto) 1.4 th/mm3 (1.0-4.8); Lymph % (Auto) 18.3 % (9.0-44.0); Mean Corpuscular HGB Conc 32.9 % (32.0-36.0); Mean Corpuscular Hemoglobin 23.5 pg (27.0-34.0); Mean Corpuscular Volume 71.4 fL (80.0-100.0); Mono # (Auto) 0.6 th/mm3 (0.0-0.9); Mono % (Auto) 7.5 % (0.0-8.0); Neut # (Auto) 5.3 th/mm3 (1.8-7.7); Neut % (Auto) 69.8 % (16.0-70.0); Platelet Count 275 th/mm3 (150-450); Red Blood Count 3.29 mil/mm3 (4.00-5.30); Red Cell Distribution Width 20.7 % (11.6-17.2); White Blood Count 7.6 th/mm3 (4.0-11.0)
--- NOTE | 2017-12-24 07:03 | P.PNCC ---
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 She has been previously healthy otherwise but yesterday developed some right-sided weakness and difficulty finding words. On arrival to the emergency department she was crisis with systolic blood pressure greater than 220 and CAT scan of the head revealed a 3.9 cm left-sided parenchymal brain hemorrhage based in the basal ganglia. Blood pressure was immediately controlled with intravenous Cardene infusion and she was transferred to the intensive care unit for further evaluation. 12/15: Unable to protect her airway last night and required endotracheal intubation and mechanical ventilation. Blood pressure control has been acceptable with Cardene. Lengthy discussion with her at the bedside this morning. He states quite clearly that she would be opposed to long-term support with the ventilator. He understands that the short-term use is not in conflict with her wishes. 12/16: Enlarging bleed with vasogenic edema and mass effect. Remains ventilator dependent. 12/17: Afebrile. Remains hypertensive on nicardipine drip at 15 mg an hour. No cough or gag. Minimal withdrawal left upper extremity. 12/18: Remains intubated sedated remains very critical. Currently on 3% saline to maintain sodium close to 150. Neuro exam reveals localizing on the left upper extremity withdrawing bilateral lower extremity and also withdrawing right upper extremity 12/19: Remains intubated sedated, no acute events overnight. Sodium is 152 now. Restarted on Cardene infusion for uncontrolled hypertension. Neuro exam remains same. Continues to localize with left upper extremity withdraws all other extremities. Repeat EEG per Dr. Cyr 12/20 No significant change. Remains on sedation because desats, has shaking movements during sedation vacation. Dr. Cyr discussed poor prognosis with family today. Repeat CT brain ordered for tomorrow per Neurosurgery. EEG repeated yesterday - diffuse slowing of background consistent with moderately severe encephalopathic process. No epileptiform features. Remains Intubated and sedated on cardene drip. Sodium 154. 12/21: Resting in bed in no acute distress. Hemoglobin 6.2 this a.m. Requiring 1 unit PRBCs currently. Family at bedside. Repeat head CT brain pending 12/22: T-max 101.6. CT brain revealed 5.2 x 2.4 cm left basal ganglia hemorrhage with a 3 mm left to right shift. Neurologically unchanged. Tolerating tube feeds. No bowel movement since 12/17. SUBJECTIVE: 12/23: T-max 100.6. Currently 99.7. -2 L overnight. Positive BM yesterday. Remains sedated on midazolam drip and fentanyl drip. Remains intubated heavily sedated for blood pressure control. T-max 101.7. Pancultured yesterday pending. Neuro exam remains unchanged. Use Cardene for blood pressure control, start sedation vacation 12/24: Objective Vital Signs / I&O: Vital Signs 12/23/17 07:00 12/23/17 07:42 12/23/17 08:00 Temperature 99.3 F Pulse Rate 71 76 Respiratory Rate 15 15 15 Blood Pressure 129/61 Pulse Oximetry 95 96 12/23/17 11:13 12/23/17 12:00 12/23/17 15:20 Temperature 100 F H Pulse Rate 71 74 78 Respiratory Rate 15 15 15 Blood Pressure 133/63 Pulse Oximetry 95 96 96 12/23/17 16:00 12/23/17 19:15 12/23/17 20:00 Temperature 101.7 F H 100.4 F H Pulse Rate 77 66 68 Respiratory Rate 20 16 16 Blood Pressure 132/62 147/68 H Pulse Oximetry 91 L 97 12/23/17 22:00 12/23/17 23:40 12/24/17 00:00 Temperature 99 F Pulse Rate 80 67 Respiratory Rate 16 16 Blood Pressure 137/63 Pulse Oximetry 98 94 L 12/24/17 02:00 12/24/17 03:28 12/24/17 04:00 Temperature 98.2 F Pulse Rate 58 L 55 L 56 L Respiratory Rate 16 16 Blood Pressure 139/67 Pulse Oximetry 99 98 12/24/17 06:00 Temperature Pulse Rate 59 L Respiratory Rate Blood Pressure Pulse Oximetry Intake & Output 12/23/17 12/23/17 12/24/17 06:59 18:59 06:59 Intake Total 741 / 741 1500 / 1500 1815 / 1815 Output Total 900 / 900 1200 / 1200 1200 / 1200 Balance -159 / -159 300 / 300 615 / 615 Weight 102.9 kg Intake: IV 205 / 205 650 / 650 1270 / 1270 Versed Inj 50 mg In 50 ml @ 2 100 / 100 50 / 50 50 / 50 MG/HR 2 mls/hr IV.CONT TITRATE PRN Rx#:[id number] Cardene Inj 50 MG In NS Inj 230 250 / 250 ML @ 5 MG/HR 25 mls/hr IV.CONT TITRATE PRN Rx#:[id number] Zosyn 4.5 GM Premix 4.5 gm In 100 / 100 200 / 200 100 ml @ 200 mls/hr IV.SIG Q6H JOAO Rx#:[id number] Vancomycin Inj 1,000 MG In NS 250 / 250 Inj 250 ML @ 250 mls/hr IV.SIG Q8H JOAO Rx#:[id number] Vancomycin Inj 2,000 MG In NS 520 / 520 Inj 500 ML @ 250 mls/hr IV.SIG ONCE ONE Rx#:[id number] fentaNYL 10 mcg/mL Premix Drip 250 / 250 250 / 250 2,500 mcg In 250 ml @ 50 MCG/HR 5 mls/hr IV.SIG TITRATE PRN Rx #:[id number] Keppra Inj 500 MG In NS Inj 100 105 / 105 ML @ 420 mls/hr IV.SIG Q12H JOAO Rx#:[id number] Tube Feeding 536 / 536 550 / 550 545 / 545 Tube Irrigant 300 / 300 Output: Stool 0 / 0 Urine Amount (Catheter) 900 / 900 1200 / 1200 1200 / 1200 Indwelling Urethral Catheter 900 / 900 1200 / 1200 1200 / 1200 Other: Date of Last Bowel Movement 12/23/17 12/23/17 12/23/17 Result Diagrams: 12/24/17 04:27 12/24/17 04:27 Objective Remarks: GENERAL: Obese female who is orotracheally intubated. Unresponsive on the vent SKIN: Warm and dry. HEAD: Atraumatic. Normocephalic. EYES: Right pupil 2 mm reactive, left pupil 2 mm slight reaction. No scleral icterus. No injection or drainage. ENT: No nasal bleeding or discharge. Mucous membranes pink and moist. Orotracheally intubated NECK: Trachea midline. No JVD. CARDIOVASCULAR: Regular rate and rhythm. S1, S2. No S4. 2 out of 6 systolic murmur left lower sternal border RESPIRATORY: Coarse breath sounds bilaterally. No wheezing. Symmetrical excursion. GASTROINTESTINAL: Abdomen soft, non-tender, nondistended. Hypoactive bowel sounds are appreciated MUSCULOSKELETAL: Extremities with trace bilateral lower extremity edema NEUROLOGICAL: No eye opening to deep noxious stimuli, extensor posturing BLE, with shaking. BUE slight withdrawal Assessment and Plan - Assessment and Plan Plan: Neuro/Psych: Acute left basal ganglia hemorrhagic CVA CT brain 12/16 revealed evolving left basal ganglia IPH 4.8 x 2.2 cm with 6 mm left to right subfalcine herniation shift. Left lateral ventricle moderately effaced. Repeat CT brain 12/21 revealed 5.2 x 2.4 cm left basal ganglia hemorrhage with 3 mm left to right shift. Followed by neurosurgery/Dr. Cyr. Goal keep sodium between 150-155. Currently sodium is 154 and 3% is at 10 cc an hour Levetiracetam 500 mg IV twice daily for seizure prophylaxis Acetaminophen 650 mg by tube every 6 hours as needed fever On midazolam at 6 mg an hour and fentany at 150 mcg an hour for sedation and ventilator synchrony We will discontinue Versed infusion. Use propofol and fentanyl if needed. Start daily sedation medication EEG 12/19 diffuse slowing of background consistent with moderately severe encephalopathic processencephalopathy, no epileptiform activity CV: Hypertensive emergency Nicardipine infusion as needed for BP control, currently weaned off As needed labetalol IV/clonidine OG On lisinopril 20 mg twice daily, amlodipine 10 mg daily. Carvedilol 25 mg twice daily, hydralazine 75 mg 3 times daily Resp: Acute respiratory failure PRVC 15/500/1.05/28/49 Ventilator bundle Albuterol/ipratropium aerosols every 6 hours with albuterol aerosols every 2 hours as needed for dyspnea Spontaneous breathing trials as clinically indicated, mental status will not permit extubation Follow-up chest x-ray as needed GI: Hypoalbuminemia Tube feeding with vital 1.5 High protein goal 50 cc an hour per nutrition recs. famotidine for GI prophylaxis Docusate sodium/senna 1 tablet twice daily for bowel regimen. Had BM yesterday Metoclopramide 5 mg 3 times daily Endo: Sliding scale insulin with aspart insulin/every 6 hours low regimen to maintain euglycemia Renal: Creatinine currently within normal limits Monitor urine output. Accurate I's and O's Maintain Trejo catheter for comfort (family leaning toward comfort care and probable withdrawal). Heme: Microcytic anemia Monitor CBC daily. Follow trend No indication for transfusion of blood products at this time. Received 2 units PRBCs 12/21 ID: High Fever Continue vancomycin and Zosyn Follow-up blood sputum and urine culture FEN: Hypernatremia, iatrogenic Replace electrolytes as clinically indicated Check sodiums every 6 hours. Goal 150-155 Access -Right subclavian CVL placed 12/15 #9 Prophylaxis -GI -famotidine -DVT -SCD/holding pharmacological prophylaxis status post left basal ganglia hemorrhage Level 3 follow-up
[2017-12-24] MEDS: amLODIPine 10 MG Tablet PO SCH (08:14)
[2017-12-24] MEDS: Famotidine 20 MG Tablet PO SCH ×2 (08:14→20:41)
[2017-12-24] MEDS: hydrALAZINE 25 MG Tablet PO SCH ×3 (08:24→19:25)
[2017-12-24] MEDS: Hypromellose 0.3% Opth Gel 10 GM Bottle EACH EYE SCH ×2 (08:25→20:42)
[2017-12-24] MEDS: Carvedilol 12.5 MG Tablet PO SCH ×2 (08:25→20:41)
[2017-12-24] MEDS: Senna/Docusate Sodium 8.6/50 MG Tablet PO SCH ×2 (08:25→20:41)
[2017-12-24] MEDS: Lisinopril 20 MG Tablet PO SCH ×2 (08:25→20:41)
--- NOTE | 2017-12-24 14:00 | P.PN ---
Subjective Interval history: Pt sedated on Fentanyl and Versed drips. She is intubated. Pupils 2mm bilaterally. Not following commands. Physical Exam Vital signs: Vital Signs 12/23/17 15:20 12/23/17 16:00 12/23/17 19:15 Temperature 101.7 F H Pulse Rate 78 77 66 Respiratory Rate 15 20 16 Blood Pressure 132/62 Pulse Oximetry 96 91 L 97 12/23/17 20:00 12/23/17 22:00 12/23/17 23:40 Temperature 100.4 F H Pulse Rate 68 80 Respiratory Rate 16 16 Blood Pressure 147/68 H Pulse Oximetry 98 12/24/17 00:00 12/24/17 02:00 12/24/17 03:28 Temperature 99 F Pulse Rate 67 58 L 55 L Respiratory Rate 16 16 Blood Pressure 137/63 Pulse Oximetry 94 L 99 12/24/17 04:00 12/24/17 06:00 12/24/17 08:00 Temperature 98.2 F 98.2 F Pulse Rate 56 L 59 L 72 Respiratory Rate 16 16 Blood Pressure 139/67 154/70 H Pulse Oximetry 98 95 12/24/17 08:02 12/24/17 10:00 12/24/17 11:15 Temperature Pulse Rate 72 72 Respiratory Rate 16 16 Blood Pressure Pulse Oximetry 94 L 95 12/24/17 12:00 Temperature 100.8 F H Pulse Rate 79 Respiratory Rate 16 Blood Pressure 133/64 Pulse Oximetry 92 L Intake & Output 12/23/17 12/24/17 12/24/17 18:59 06:59 18:59 Intake Total 1500 / 1500 1815 / 1815 200 / 200 Output Total 1200 / 1200 1200 / 1200 Balance 300 / 300 615 / 615 200 / 200 Intake: IV 650 / 650 1270 / 1270 200 / 200 Versed Inj 50 mg In 50 ml @ 2 50 / 50 50 / 50 MG/HR 2 mls/hr IV.CONT TITRATE PRN Rx#:[id number] Cardene Inj 50 MG In NS Inj 230 250 / 250 ML @ 5 MG/HR 25 mls/hr IV.CONT TITRATE PRN Rx#:[id number] Zosyn 4.5 GM Premix 4.5 gm In 100 / 100 200 / 200 100 / 100 100 ml @ 200 mls/hr IV.SIG Q6H JOAO Rx#:[id number] KCl 40 mEq Premix Inj 40 meq In 100 / 100 100 ml @ 50 mls/hr IV.SIG Q2H PRN Rx#:[id number] Vancomycin Inj 1,000 MG In NS 250 / 250 Inj 250 ML @ 250 mls/hr IV.SIG Q8H JOAO Rx#:[id number] Vancomycin Inj 2,000 MG In NS 520 / 520 Inj 500 ML @ 250 mls/hr IV.SIG ONCE ONE Rx#:[id number] fentaNYL 10 mcg/mL Premix Drip 250 / 250 250 / 250 2,500 mcg In 250 ml @ 50 MCG/HR 5 mls/hr IV.SIG TITRATE PRN Rx #:[id number] Tube Feeding 550 / 550 545 / 545 Tube Irrigant 300 / 300 Output: Stool 0 / 0 Urine Amount (Catheter) 1200 / 1200 1200 / 1200 Indwelling Urethral Catheter 1200 / 1200 1200 / 1200 Other: Date of Last Bowel Movement 12/23/17 12/23/17 12/23/17 - Constitutional no acute distress, obese Comments: Pt sedated on Fentanyl and Versed drips. - Routine HEENT Exam Head: Present: normocephalic, atraumatic Eye: Present: PERRL (Pupils 2mm bilaterally reactive bilaterally.). Absent: conjunctival icterus ENT: Absent: oropharynx clear (ET intubated.) - Routine Neck Exam Present: trachea midline - Routine Respiratory Exam Present: patient mechanically ventilated, rhonchi (Coarse bs bilaterally.). Absent: respiratory distress, wheezes - Routine Cardiovascular Exam Present: RRR, S1, S2. Absent: murmur - Routine Abdominal Exam Present: soft, normoactive bowel sounds. Absent: distended - Routine Skin Exam Absent: cyanosis, erythema Comments: SCDs in place. - Routine Neurological Exam Present: altered mental status. Absent: alert Pt sedated on Fentanyl and versed drip. - Routine Psychiatric Exam Present: unable to assess - Urinary Catheter Management Indwelling Urethral Catheter Cath placed during this visit: yes Reason for continuing: Terminally ill/Comfort care Insertion date: 12/14/17 Insertion time: 17:00 Results - Labs CBC & Chem 7: 12/25/17 05:00 12/25/17 05:00 Laboratory Results - last 24 hr 12/23/17 12/23/17 12/23/17 10:32 17:28 18:54 WBC RBC Hgb Hct MCV MCH MCHC RDW Plt Count MPV Neut % (Auto) Lymph % (Auto) [place] % (Auto) Eos % (Auto) Baso % (Auto) Neut # (Auto) Lymph # (Auto) [place] # (Auto) Eos # (Auto) Baso # (Auto) WBC Differential Differential Comment Sodium 153 H Potassium Chloride Carbon Dioxide Anion Gap BUN Creatinine Estimated GFR POC Glucose 151 H Random Glucose Calcium Phosphorus Magnesium Total Bilirubin AST ALT Alkaline Phosphatase Total Protein Albumin Urine Color Yellow Urine Clarity Hazy H Urine pH 5.0 Ur Specific [place] 1.015 Urine Protein Negative Urine Glucose (UA) Negative Urine Ketones Negative Urine Occult Blood Negative Urine Nitrate Negative Urine Bilirubin Negative Urine Urobilinogen 2.0 H Ur Leukocyte Esterase Large H Urine RBC 10 H Urine WBC 57 H Ur Squamous Epith Cells 1 Urine Bacteria Rare H Hyaline Casts 4 Urine Mucus Few H Micro UA Comment Cath-culture ind Urine Culture Comments Cath-cult indicated 12/24/17 12/24/17 12/24/17 00:25 04:27 04:27 WBC 7.6 RBC 3.29 L Hgb 7.7 L Hct 23.5 L MCV 71.4 L MCH 23.5 L MCHC 32.9 RDW 20.7 H Plt Count 275 MPV 8.0 Neut % (Auto) 69.8 Lymph % (Auto) 18.3 [place] % (Auto) 7.5 Eos % (Auto) 3.9 Baso % (Auto) 0.5 Neut # (Auto) 5.3 Lymph # (Auto) 1.4 [place] # (Auto) 0.6 Eos # (Auto) 0.3 Baso # (Auto) 0.0 WBC Differential . Differential Comment Auto diff final Sodium 154 H Potassium 3.3 L Chloride 120 H Carbon Dioxide 25.6 Anion Gap 8 BUN 27 H Creatinine 0.88 Estimated GFR 67 L POC Glucose 106 Random Glucose 107 H Calcium 8.2 L Phosphorus 3.8 Magnesium 2.2 Total Bilirubin 0.3 AST 28 ALT 22 Alkaline Phosphatase 46 Total Protein 6.2 L Albumin 1.8 L Urine Color Urine Clarity Urine pH Ur Specific [place] Urine Protein Urine Glucose (UA) Urine Ketones Urine Occult Blood Urine Nitrate Urine Bilirubin Urine Urobilinogen Ur Leukocyte Esterase Urine RBC Urine WBC Ur Squamous Epith Cells Urine Bacteria Hyaline Casts Urine Mucus Micro UA Comment Urine Culture Comments 12/24/17 12/24/17 11:13 12:00 WBC RBC Hgb Hct MCV MCH MCHC RDW Plt Count MPV Neut % (Auto) Lymph % (Auto) [place] % (Auto) Eos % (Auto) Baso % (Auto) Neut # (Auto) Lymph # (Auto) [place] # (Auto) Eos # (Auto) Baso # (Auto) WBC Differential Differential Comment Sodium Potassium 4.0 Chloride Carbon Dioxide Anion Gap BUN Creatinine Estimated GFR POC Glucose 155 H Random Glucose Calcium Phosphorus Magnesium Total Bilirubin AST ALT Alkaline Phosphatase Total Protein Albumin Urine Color Urine Clarity Urine pH Ur Specific [place] Urine Protein Urine Glucose (UA) Urine Ketones Urine Occult Blood Urine Nitrate Urine Bilirubin Urine Urobilinogen Ur Leukocyte Esterase Urine RBC Urine WBC Ur Squamous Epith Cells Urine Bacteria Hyaline Casts Urine Mucus Micro UA Comment Urine Culture Comments Microbiology 12/23/17 10:30 Sputum - Oral Tracheal Aspirate Gram Stain - Final 12/23/17 10:30 Sputum - Oral Tracheal Aspirate Sputum Culture - Preliminary Moderate growth normal respiratory caio at 24 hours 12/23/17 10:32 Catheterized Urine Urine Culture - Preliminary Group D Enterococcus 12/23/17 13:14 Blood - Peripheral Aerobic Blood Culture - Preliminary No growth in 1 day 12/23/17 13:14 Blood - Peripheral Anaerobic Blood Culture - Preliminary No growth in 1 day 12/23/17 13:19 Blood - Peripheral Aerobic Blood Culture - Preliminary No growth in 1 day 12/23/17 13:19 Blood - Peripheral Anaerobic Blood Culture - Preliminary No growth in 1 day - Imaging Impressions Head CT 12/21/17 06:00 CONCLUSION: 1. Evolving hemorrhage in the left basal ganglia and left prior exam with mild midline shift. There is some surrounding edema. 2. Fluid in the paranasal sinuses. . Abdomen X-Ray 12/22/17 00:00 CONCLUSION: No evidence of bowel obstruction. Venous Doppler Study 12/23/17 00:00 CONCLUSION: Negative study. No venous thrombosis of either lower extremity. Chest X-Ray 12/23/17 16:32 CONCLUSION: Bilateral mostly basilar airspace disease and small effusions. Cardiomegaly. Support apparatus in good position. Chest X-Ray 12/24/17 06:00 CONCLUSION: Improved aeration right lower lobe otherwise able. Assessment and Plan - Assessment (1) Hypertension Code(s): I10 - Essential (primary) hypertension Status: Acute (2) Intracranial hemorrhage Code(s): I62.9 - Nontraumatic intracranial hemorrhage, unspecified Status: Acute - Plan Impression: 52 y/o female Hypertensive crisis left basal ganglia hemorrhage This is a large bleed in her dominant hemisphere and a particularly worrisome spot and her prognosis is guarded CT scan head images reviewed by the undersigned and with the family in the intensive surgical care unit on 12/22/2017. Findings as follows: There is a 5.2 x 2.4 cm hemorrhage centered in the left basal ganglia with surrounding edema and some mass effect. There is about 3 mm of [id number] midline shift. Nasogastric tube is seen. There is fluid in the paranasal sinuses with mucosal thickening. No acute bony abnormalities. Updated family at bedside. Plan: Continue neuro checks. Continue with blood pressure control No surgical procedure is indicated at this time as bleed in located deep in the basal ganglia. cont critical care management sedation weaning as tolerated and follow up neurological exam, cont keppra, EEG results reviewed Daily PT and OT Renal: Continue to monitor closely urine output, BUN and creatinine Endocrine: Continue to Monitor serial Acu checks and SSI as needed in detail ID continue to monitor for signs of infection Continue Protonix for stress ulcer prophylaxis Continue Joe hose and SCD's for DVT prophylaxis Discussed with her and mother at bedside and answered all their questions to their satisfaction. - Attending Attestation The exam, history, and the medical decision-making described in the above note were completed with the assistance of the mid-level provider. I reviewed and agree with the findings presented. I attest that I had a [id number] encounter with the patient on the same day, and personally performed and documented my assessment and findings in the medical record.
--- NOTE | 2017-12-24 15:42 | P.CONPAL ---
Consult Service: Palliative Care Requesting Physician: Susi Damico Reason for Consult: a. To assist with evaluation and management of symptoms including: Dyspnea, pain, encephalopathy b. To assist medical decision maker(s) with: better understanding of current medical conditions; weighing benefits/burdens of medical treatment options; making medical treatment decisions. Primary Care Provider: Shantell Riley MD History of Present Illness History of Present Illness: This 52-year-old female, with a past history of hypertension, was admitted through the emergency department on 12/14/17 because of an acute basal ganglia hemorrhage. The patient has had hypertension for many years, but it had improved about 15 years ago when she lost a significant amount of weight, and she was able to come off of medications at that time. The patient's reports that she had not had her blood pressure checked in recent years and had been feeling fine. On the day of admission, the heard a commotion and went to find the patient on the floor. She was able to speak a few words at that time, but became less and less responsive over the subsequent minutes. EVAC found her initial blood pressure to be 252/180 and she was noted to have a leftward gaze. She was brought to the emergency department. Findings in the emergency department included: * Obtunded * Temp 99.2, pulse 119, respirations 26, blood pressure 260/140 * White count 9.3, hemoglobin 11.0 * Sodium 140, creatinine 1.08, albumin 3.8 * INR 1.0 * Chest x-ray unremarkable * CT scan of the brain revealed a 3.9 cm left basal ganglia hemorrhage with some midline shift. Cardene was initiated immediately to control the blood pressure. Neurosurgery saw the patient and noted a severe right hemiparesis. The patient was INTUBATED that evening for airway protection. A repeat CT scan on 12/15 indicated the hemorrhage was 4.8 x 2.2 cm. The patient remained intubated, mechanically ventilated, sedated. On 12/19, and EEG revealed slowing consistent with moderately severe encephalopathy 3% saline was provided to create a hypernatremia. On 12/21/17, a repeat CT indicated the hemorrhage was 5.2 x 2.4 cm, there was a 3 mm left to right shift, and there was some edema present. The patient had a fever up to 101.6 on 12/22. The chest x-ray on the date of this consultation indicated some improved aeration of the right lower lobe. The patient's oxygen saturations had dropped during the day today, and her FiO2 was increased to 55%, PEEP 8. The patient's family has expressed during this hospitalization there are view of what the patient would and would not want going forward, and Palliative Care was consulted to assist with symptom management, and to enter into discussions with the family regarding the diagnoses, the overall prognosis, and the benefits and burdens of the various treatment choices. Function/Cognitive Trajectory: The patient was functioning completely normally and independently prior to this hemorrhage. 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 Review of Systems other (History provided by patient's and mother, and the medical record) Constitutional: Denies weight gain Eyes: Denies irritation Ears, Nose, Mouth, and Throat: Denies abnormal hearing, Denies poor balance Cardiovascular: Denies chest pain, Denies shortness of breath Respiratory: Denies cough, Denies shortness of breath Gastrointestinal: Denies abdominal pain, Denies black, tarry stools, Denies vomiting blood Genitourinary: Denies blood in urine Musculoskeletal: Denies abnormal walking, Denies joint swelling Skin/Breast: Denies lesions, Denies redness Neurologic: Denies headache(s), Denies convulsions Psychiatric: Reports confusion (At the time of the hemorrhage), Denies panic attacks Endocrine: Denies excessive sweating Hematologic/Lymphatic: Denies easy bruising Allergic/Immunologic: Denies hives PMFSH - History History Provided By: Family Member - Medical History Medical History: Medical History (Last Reviewed 12/24/17 @ 07:47 by Carlee Mancia) HTN (hypertension) - Surgical History Surgical History: Surgical History (Last Reviewed 12/24/17 @ 07:47 by Carlee Mancia) Previous section - Family History Family History: Family History (Last Updated 12/24/17 @ 15:23 by Zandra Flores MD) Mother Family history of hypertension Brother Melanoma Other Family history unobtainable - Tobacco History Second Hand Smoke Exposure: No Tobacco Use In Past 30 Days: No Smoking Status: Never smoker - Alcohol History How Often Do You Have a Drink Containing Alcohol: Never - Substance Use History Substance History: No History of Abuse - Travel History Recent Travel in the [place] Within the Last 8 Weeks: No Recent Travel Out of the Country Within the Last 8 Weeks: No - Immunization History Tetanus Immunization: Unable to Assess Hx Influenza Vaccine This Season: Unable to Assess Medications and Allergies Active Medications: Active Medications Acetaminophen (Tylenol Liq) 650 mg PO Q6H PRN PRN Reason: FEVER Last Admin: 12/24/17 10:35 Dose: 650 mg Al Hydroxide/Mg Hydroxide (Milk Of Magnesia Liq) 30 ml PO Q12H PRN PRN Reason: Mild Constipation Albuterol (Albuterol Neb (Prn)) 2.5 mg NEB Q2HR NEB PRN PRN Reason: DYSPNEA Albuterol (Duoneb Neb (Jered)) 1 ampul NEB Q6HR NEB [facility] Last Admin: 12/24/17 08:02 Dose: 1 ampul Amlodipine Besylate (Norvasc) 10 mg PO DAILY [facility] Last Admin: 12/24/17 08:14 Dose: 10 mg Artificial Tears (Genteal Severe Dry Eye Relief 0.3% Opth Gel) 1 drops EACH EYE BID [facility] Last Admin: 12/24/17 08:25 Dose: 1 drops Bisacodyl (Dulcolax Supp) 10 mg RECTAL DAILY PRN PRN Reason: SEVERE CONSITIPATION Carvedilol (Coreg) 25 mg PO BID [facility] Last Admin: 12/24/17 08:25 Dose: 25 mg Clonidine HCl (Catapres) 0.1 mg PO Q4H PRN PRN Reason: SBP>160, DBP>90 Last Admin: 12/23/17 15:04 Dose: 0.1 mg Clonidine HCl (Catapres) 0.1 mg PO Q8HR [facility] Last Admin: 12/24/17 13:42 Dose: 0.1 mg Dextrose (D50w Vial) 50 ml IV.PUSH UNSCH PRN PRN Reason: PER HYPOGLYCEMIA PROTOCOL Famotidine (Pepcid) 20 mg PO BID [facility] Last Admin: 12/24/17 08:14 Dose: 20 mg Glucagon (Glucagon Inj) 1 mg OTHER PRN PRN PRN Reason: for Hypoglycemia Protocol Hydralazine HCl (Apresoline) 100 mg PO TID [facility] Last Admin: 12/24/17 14:39 Dose: Not Given Nicardipine HCl 50 mg/ Sodium (Chloride) 250 mls @ 25 mls/hr IV.CONT TITRATE PRN; Protocol PRN Reason: Per Protocol Last Titration: 12/23/17 17:25 Dose: 0 mg/hr, 0 mls/hr Propofol (Diprivan 1000 Mg/100 Ml Inj) 1,000 mg in 100 mls @ 2.822 mls/hr IV.CONT TITRATE PRN; Protocol PRN Reason: Per Protocol Last Titration: 12/18/17 11:30 Dose: 0 mcg/kg/min, 0 mls/hr Magnesium Sulfate Inj 4 gm/ (Sodium Chloride) 100 mls @ 50 mls/hr IV.SIG UNSCH PRN PRN Reason: For Magnesium 0.9 - 1.1 mg/dL Magnesium Sulfate Inj 2 gm/ (Sodium Chloride) 100 mls @ 50 mls/hr IV.SIG UNSCH PRN PRN Reason: For Magnesium 1.2 - 1.6 mg/dL Potassium Chloride (Kcl 40 Meq Premix Inj) 40 meq in 100 mls @ 50 mls/hr IV.SIG Q2H PRN PRN Reason: For Potassium 2.8 - 3.2 mEq/L Last Infusion: 12/24/17 08:07 Dose: Infused Potassium Chloride (Kcl 20 Meq Premix Inj) 20 meq in 100 mls @ 50 mls/hr IV.SIG Q2H PRN PRN Reason: For Potassium 3.3 - 3.5 mEq/L Potassium Chloride (Kcl 40 Meq Premix Inj) 40 meq in 100 mls @ 25 mls/hr IV.SIG UNSCH PRN PRN Reason: For Potassium 3.3 - 3.5 mEq/L Potassium Chloride (Kcl 20 Meq Premix Inj) 20 meq in 100 mls @ 50 mls/hr IV.SIG Q2H PRN PRN Reason: For Potassium 2.8 - 3.2 mEq/L Potassium Phosphate 30 mmol/ (Sodium Chloride) 260 mls @ 42 mls/hr IV.SIG UNSCH PRN PRN Reason: SEE LABEL COMMENTS Sodium Phosphate 30 mmol/ (Sodium Chloride) 260 mls @ 42 mls/hr IV.SIG UNSCH PRN PRN Reason: For Phosphorus < 2.5 mg/dL Fentanyl (Fentanyl 10 Mcg/Ml Premix Drip) 2,500 mcg in 250 mls @ 5 mls/hr IV.SIG TITRATE PRN; Protocol PRN Reason: Per Protocol Last Titration: 12/24/17 10:27 Dose: 75 mcg/hr, 7.5 mls/hr Sodium Chloride (Sodium Chloride 3% Inj) 500 mls @ 10 mls/hr IV.SIG UNSCH PRN PRN Reason: ICP Management Last Admin: 12/22/17 09:29 Dose: 10 mls/hr Piperacillin/Tazobactam/Dextrose (Zosyn 4.5 Gm Premix) 4.5 gm in 100 mls @ 200 mls/hr IV.SIG Q6H JERED Last Infusion: 12/24/17 12:15 Dose: Infused Pharmacy Profile Note (Vancomycin Consult Pharmacy) 0 mls @ 0 mls/hr OTHER UNSCH [facility] Vancomycin HCl 1,000 mg/ (Sodium Chloride) 250 mls @ 250 mls/hr IV.SIG Q8H [facility] Last Infusion: 12/24/17 14:17 Dose: Infused Insulin Aspart (Novolog Insulin Correctional Sugar Inj) 0 unit SQ Q6HR [facility]; Protocol Last Admin: 12/24/17 11:45 Dose: 1 unit Labetalol HCl (Trandate Inj) 10 mg IV.PUSH Q1H PRN PRN Reason: Sbp>150, Dbp>90 Last Admin: 12/23/17 20:43 Dose: 10 mg Lactulose (Lactulose Liq) 30 ml PO DAILY PRN PRN Reason: SEVERE CONSITIPATION Levetiracetam (Keppra Liq) 500 mg NG/OG BID [facility] Last Admin: 12/24/17 08:14 Dose: 500 mg Lisinopril (Prinivil) 20 mg PO BID [facility] Last Admin: 12/24/17 08:25 Dose: 20 mg Magnesium Oxide (Mag-Ox) 800 mg PO UNSCH PRN PRN Reason: For Magnesium 1.2 - 1.6 mg/dL Metoclopramide HCl (Reglan Inj) 5 mg IV.PUSH Q8HR [facility]; Protocol Last Admin: 12/24/17 13:43 Dose: 5 mg Miscellaneous Information ([facility] [place] [place] [facility] Ordered Lab Info) 1 each OTHER ONCE [facility] Ondansetron HCl (Zofran Odt) 4 mg PO Q6H PRN PRN Reason: NAUSEA OR VOMITING Last Admin: 12/14/17 23:29 Dose: 4 mg Potassium Bicarb/Potassium Chloride (K-Lyte Cl Eff) 50 meq PO UNSCH PRN PRN Reason: For Potassium 3.3 - 3.5 mEq/L Potassium Phosphate (K-Phos Original) 2,000 mg PO Q4H PRN PRN Reason: Phosphorus Less Than 2.5 mg/dL Potassium Phosphate (K-Phos Original) 2,000 mg PO UNSCH PRN PRN Reason: SEE LABEL COMMENTS Senna/Docusate Sodium (Cassidy-Colace) 1 tab PO BID [facility] Last Admin: 12/24/17 08:25 Dose: Not Given Sennosides (Senokot) 17.2 mg PO Q12H PRN PRN Reason: Moderate Constipation Sodium Chloride (Ns Flush) 2 ml IV.FLUSH PRN PRN PRN Reason: FLUSH AFTER USING IV ACCESS Sodium Chloride (Ns Flush) 2 ml IV.FLUSH BID [facility] Last Admin: 12/24/17 08:25 Dose: 2 ml Allergies Allergy/AdvReac Type Severity Reaction Status Date / Time No Known Allergies Allergy Unverified 12/14/17 16:23 Home Medications Medication Instructions Recorded Confirmed Type No Known Home Medications 12/14/17 12/14/17 History Advance Directives Living Will: No Healthcare Surrogate: No Power of Title I Teacher: No Family/friends goals: The patient's , patient's mother, and patient's aunt all report that the patient had spoken with them in recent years about situations like this, and the are all certain that she would not want to be kept on life support prolonged period of time. They note that Dr. Cyr told them initially that "best case scenario" would be bedbound, 24 hour nursing care, and PEG tube, and they feel certain she would not want to live in that situation. Ethical and Legal Issues: Patient is unable to speak for herself. The patient lacks capacity for decision-making and she will not regain that capacity. The patient's Lorenzo is the HCP. Physical Exam Vital Signs: Vital Signs - 24 hr 12/23/17 15:20 12/23/17 16:00 12/23/17 19:15 Temperature 101.7 F H Pulse Rate 78 77 66 Respiratory Rate 15 20 16 Blood Pressure 132/62 Pulse Oximetry 96 91 L 97 12/23/17 20:00 12/23/17 22:00 12/23/17 23:40 Temperature 100.4 F H Pulse Rate 68 80 Respiratory Rate 16 16 Blood Pressure 147/68 H Pulse Oximetry 98 12/24/17 00:00 12/24/17 02:00 12/24/17 03:28 Temperature 99 F Pulse Rate 67 58 L 55 L Respiratory Rate 16 16 Blood Pressure 137/63 Pulse Oximetry 94 L 99 12/24/17 04:00 12/24/17 06:00 12/24/17 08:00 Temperature 98.2 F 98.2 F Pulse Rate 56 L 59 L 72 Respiratory Rate 16 16 Blood Pressure 139/67 154/70 H Pulse Oximetry 98 95 12/24/17 08:02 12/24/17 10:00 12/24/17 11:15 Temperature Pulse Rate 72 72 Respiratory Rate 16 16 Blood Pressure Pulse Oximetry 94 L 95 12/24/17 12:00 12/24/17 14:00 Temperature 100.8 F H Pulse Rate 79 84 Respiratory Rate 16 Blood Pressure 133/64 Pulse Oximetry 92 L I&O: Intake & Output 12/22/17 12/23/17 12/24/17 12/25/17 06:59 06:59 06:59 06:59 Intake Total 3053 / 3053 1754 / 1754 3315 / 3315 450 / 450 Output Total 2350 / 2350 3800 / 3800 2400 / 2400 Balance 703 / 703 -2046 / -2046 915 / 915 450 / 450 Weight 102.7 kg 102.9 kg Physical Exam: CONSTITUTIONAL/GENERAL: This is an adequately nourished patient, in no apparent distress. TUBES/LINES/DRAINS: ET tube, central line on the right, Trejo SKIN: No jaundice, rashes, or lesions. Ecchymoses on upper extremities. No wounds seen anteriorly. Skin temperature appropriate. Not diaphoretic. HEAD: Atraumatic. Normocephalic. EYES: Pupils equal and round and sluggishly reactive. No scleral icterus. No injection or drainage. Fundi not examined. ENT: Nose without bleeding or purulent drainage. NECK: Trachea midline. Supple, nontender. No palpable thyroid enlargement or nodularity. CARDIOVASCULAR: Regular rate and rhythm without murmurs, gallops, or rubs. No JVD. Peripheral pulses symmetric. RESPIRATORY/CHEST: Symmetric, unlabored respirations. Clear to auscultation. Breath sounds equal bilaterally. No wheezes, rales, or rhonchi. GASTROINTESTINAL: Abdomen soft, non-tender, nondistended. No hepato-splenomegaly , or palpable masses. No guarding. Bowel sounds present. GENITOURINARY: Without palpable bladder distension. Trejo catheter in place. MUSCULOSKELETAL: Extremities without clubbing, cyanosis, or edema. No joint tenderness or effusion noted. No calf tenderness. No mottling or clubbing. LYMPHATICS: No palpable cervical or supraclavicular adenopathy. NEUROLOGICAL: Obtunded, does not respond to voice, touch. She did have some withdrawal response to pain. PSYCHIATRIC: Unable to assess due to clinical condition. Diagnostic Tests Laboratory: Laboratory Results - last 72 hr 12/21/17 12/21/17 12/21/17 18:05 18:21 18:50 WBC RBC Hgb 8.3 L D Hct MCV MCH MCHC RDW Plt Count MPV Neut % (Auto) Lymph % (Auto) [place] % (Auto) Eos % (Auto) Baso % (Auto) Neut # (Auto) Lymph # (Auto) [place] # (Auto) Eos # (Auto) Baso # (Auto) WBC Differential Differential Comment Puncture Site Patient Temperature O2 Saturation ABG pH ABG pCO2 ABG pO2 ABG HCO3 ABG O2 Content ABG Base Excess ABG Methemoglobin Hemoglobin Carboxyhemoglobin O2 Delivery Device Vent Setting Inspired O2 Critical Value Sodium 153 H Potassium Chloride Carbon Dioxide Anion Gap BUN Creatinine Estimated GFR POC Glucose 94 Random Glucose Calcium Phosphorus Magnesium Total Bilirubin AST ALT Alkaline Phosphatase Total Protein Albumin Urine Color Urine Clarity Urine pH Ur Specific [place] Urine Protein Urine Glucose (UA) Urine Ketones Urine Occult Blood Urine Nitrate Urine Bilirubin Urine Urobilinogen Ur Leukocyte Esterase Urine RBC Urine WBC Ur Squamous Epith Cells Urine Bacteria Hyaline Casts Urine Mucus Micro UA Comment Urine Culture Comments 12/22/17 12/22/17 12/22/17 00:17 00:20 05:55 WBC 8.5 RBC 3.50 L Hgb 8.0 L Hct 24.8 L MCV 71.0 L D MCH 23.0 L MCHC 32.4 RDW 20.1 H Plt Count 280 MPV 7.8 Neut % (Auto) 77.6 H Lymph % (Auto) 10.8 [place] % (Auto) 9.9 H Eos % (Auto) 1.1 Baso % (Auto) 0.6 Neut # (Auto) 6.6 Lymph # (Auto) 0.9 L [place] # (Auto) 0.8 Eos # (Auto) 0.1 Baso # (Auto) 0.1 WBC Differential . Differential Comment Auto diff final Puncture Site Patient Temperature O2 Saturation ABG pH ABG pCO2 ABG pO2 ABG HCO3 ABG O2 Content ABG Base Excess ABG Methemoglobin Hemoglobin Carboxyhemoglobin O2 Delivery Device Vent Setting Inspired O2 Critical Value Sodium 152 H Potassium Chloride Carbon Dioxide Anion Gap BUN Creatinine Estimated GFR POC Glucose 124 H Random Glucose Calcium Phosphorus Magnesium Total Bilirubin AST ALT Alkaline Phosphatase Total Protein Albumin Urine Color Urine Clarity Urine pH Ur Specific [place] Urine Protein Urine Glucose (UA) Urine Ketones Urine Occult Blood Urine Nitrate Urine Bilirubin Urine Urobilinogen Ur Leukocyte Esterase Urine RBC Urine WBC Ur Squamous Epith Cells Urine Bacteria Hyaline Casts Urine Mucus Micro UA Comment Urine Culture Comments 12/22/17 12/22/17 12/22/17 05:55 05:57 12:00 WBC RBC Hgb Hct MCV MCH MCHC RDW Plt Count MPV Neut % (Auto) Lymph % (Auto) [place] % (Auto) Eos % (Auto) Baso % (Auto) Neut # (Auto) Lymph # (Auto) [place] # (Auto) Eos # (Auto) Baso # (Auto) WBC Differential Differential Comment Puncture Site Patient Temperature O2 Saturation ABG pH ABG pCO2 ABG pO2 ABG HCO3 ABG O2 Content ABG Base Excess ABG Methemoglobin Hemoglobin Carboxyhemoglobin O2 Delivery Device Vent Setting Inspired O2 Critical Value Sodium 152 H 152 H Potassium 3.7 Chloride 119 H Carbon Dioxide 23.4 Anion Gap 10 BUN 15 Creatinine 0.63 Estimated GFR Greater than 89 POC Glucose 103 Random Glucose 120 H Calcium 8.2 L Phosphorus 3.7 Magnesium 2.3 Total Bilirubin AST ALT Alkaline Phosphatase Total Protein Albumin Urine Color Urine Clarity Urine pH Ur Specific [place] Urine Protein Urine Glucose (UA) Urine Ketones Urine Occult Blood Urine Nitrate Urine Bilirubin Urine Urobilinogen Ur Leukocyte Esterase Urine RBC Urine WBC Ur Squamous Epith Cells Urine Bacteria Hyaline Casts Urine Mucus Micro UA Comment Urine Culture Comments 12/22/17 12/22/17 12/22/17 13:06 18:00 18:11 WBC RBC Hgb Hct MCV MCH MCHC RDW Plt Count MPV Neut % (Auto) Lymph % (Auto) [place] % (Auto) Eos % (Auto) Baso % (Auto) Neut # (Auto) Lymph # (Auto) [place] # (Auto) Eos # (Auto) Baso # (Auto) WBC Differential Differential Comment Puncture Site Patient Temperature O2 Saturation ABG pH ABG pCO2 ABG pO2 ABG HCO3 ABG O2 Content ABG Base Excess ABG Methemoglobin Hemoglobin Carboxyhemoglobin O2 Delivery Device Vent Setting Inspired O2 Critical Value Sodium 152 H Potassium Chloride Carbon Dioxide Anion Gap BUN Creatinine Estimated GFR POC Glucose 125 H 124 H Random Glucose Calcium Phosphorus Magnesium Total Bilirubin AST ALT Alkaline Phosphatase Total Protein Albumin Urine Color Urine Clarity Urine pH Ur Specific [place] Urine Protein Urine Glucose (UA) Urine Ketones Urine Occult Blood Urine Nitrate Urine Bilirubin Urine Urobilinogen Ur Leukocyte Esterase Urine RBC Urine WBC Ur Squamous Epith Cells Urine Bacteria Hyaline Casts Urine Mucus Micro UA Comment Urine Culture Comments 12/22/17 12/23/17 12/23/17 22:47 02:42 02:42 WBC 8.4 RBC 3.64 L Hgb 8.3 L Hct 25.9 L MCV 71.0 L MCH 22.8 L MCHC 32.1 RDW 20.6 H Plt Count 300 MPV 7.5 Neut % (Auto) 75.1 H Lymph % (Auto) 13.5 [place] % (Auto) 8.8 H Eos % (Auto) 2.0 Baso % (Auto) 0.6 Neut # (Auto) 6.3 Lymph # (Auto) 1.1 [place] # (Auto) 0.7 Eos # (Auto) 0.2 Baso # (Auto) 0.1 WBC Differential . Differential Comment Auto diff final Puncture Site Patient Temperature O2 Saturation ABG pH ABG pCO2 ABG pO2 ABG HCO3 ABG O2 Content ABG Base Excess ABG Methemoglobin Hemoglobin Carboxyhemoglobin O2 Delivery Device Vent Setting Inspired O2 Critical Value Sodium 153 H Potassium 3.7 Chloride 120 H Carbon Dioxide 27.0 Anion Gap 6 BUN 22 H Creatinine 0.65 Estimated GFR Greater than 89 POC Glucose 124 H Random Glucose 126 H Calcium 8.5 Phosphorus 3.2 Magnesium 2.3 Total Bilirubin AST ALT Alkaline Phosphatase Total Protein Albumin Urine Color Urine Clarity Urine pH Ur Specific [place] Urine Protein Urine Glucose (UA) Urine Ketones Urine Occult Blood Urine Nitrate Urine Bilirubin Urine Urobilinogen Ur Leukocyte Esterase Urine RBC Urine WBC Ur Squamous Epith Cells Urine Bacteria Hyaline Casts Urine Mucus Micro UA Comment Urine Culture Comments 12/23/17 12/23/17 12/23/17 06:45 10:32 11:50 WBC RBC Hgb Hct MCV MCH MCHC RDW Plt Count MPV Neut % (Auto) Lymph % (Auto) [place] % (Auto) Eos % (Auto) Baso % (Auto) Neut # (Auto) Lymph # (Auto) [place] # (Auto) Eos # (Auto) Baso # (Auto) WBC Differential Differential Comment Puncture Site Art line Patient Temperature 98.6 O2 Saturation 90 ABG pH 7.44 H ABG pCO2 37 L ABG pO2 65 ABG HCO3 25 ABG O2 Content 11.3 L ABG Base Excess 0.9 ABG Methemoglobin 0.8 Hemoglobin 8.8 L Carboxyhemoglobin 1.3 O2 Delivery Device Ventilator Vent Setting 16/500/it1.1/8peep Inspired O2 50 Critical Value No Sodium Potassium Chloride Carbon Dioxide Anion Gap BUN Creatinine Estimated GFR POC Glucose 119 H Random Glucose Calcium Phosphorus Magnesium Total Bilirubin AST ALT Alkaline Phosphatase Total Protein Albumin Urine Color Yellow Urine Clarity Hazy H Urine pH 5.0 Ur Specific [place] 1.015 Urine Protein Negative Urine Glucose (UA) Negative Urine Ketones Negative Urine Occult Blood Negative Urine Nitrate Negative Urine Bilirubin Negative Urine Urobilinogen 2.0 H Ur Leukocyte Esterase Large H Urine RBC 10 H Urine WBC 57 H Ur Squamous Epith Cells 1 Urine Bacteria Rare H Hyaline Casts 4 Urine Mucus Few H Micro UA Comment Cath-culture ind Urine Culture Comments Cath-cult indicated 12/23/17 12/23/17 12/23/17 12:07 17:28 18:54 WBC RBC Hgb Hct MCV MCH MCHC RDW Plt Count MPV Neut % (Auto) Lymph % (Auto) [place] % (Auto) Eos % (Auto) Baso % (Auto) Neut # (Auto) Lymph # (Auto) [place] # (Auto) Eos # (Auto) Baso # (Auto) WBC Differential Differential Comment Puncture Site Patient Temperature O2 Saturation ABG pH ABG pCO2 ABG pO2 ABG HCO3 ABG O2 Content ABG Base Excess ABG Methemoglobin Hemoglobin Carboxyhemoglobin O2 Delivery Device Vent Setting Inspired O2 Critical Value Sodium 154 H 153 H Potassium Chloride Carbon Dioxide Anion Gap BUN Creatinine Estimated GFR POC Glucose 151 H Random Glucose Calcium Phosphorus Magnesium Total Bilirubin AST ALT Alkaline Phosphatase Total Protein Albumin Urine Color Urine Clarity Urine pH Ur Specific [place] Urine Protein Urine Glucose (UA) Urine Ketones Urine Occult Blood Urine Nitrate Urine Bilirubin Urine Urobilinogen Ur Leukocyte Esterase Urine RBC Urine WBC Ur Squamous Epith Cells Urine Bacteria Hyaline Casts Urine Mucus Micro UA Comment Urine Culture Comments 12/24/17 12/24/1718 00:25 04:27 04:27 WBC 7.6 RBC 3.29 L Hgb 7.7 L Hct 23.5 L MCV 71.4 L MCH 23.5 L MCHC 32.9 RDW 20.7 H Plt Count 275 MPV 8.0 Neut % (Auto) 69.8 Lymph % (Auto) 18.3 [place] % (Auto) 7.5 Eos % (Auto) 3.9 Baso % (Auto) 0.5 Neut # (Auto) 5.3 Lymph # (Auto) 1.4 [place] # (Auto) 0.6 Eos # (Auto) 0.3 Baso # (Auto) 0.0 WBC Differential . Differential Comment Auto diff final Puncture Site Patient Temperature O2 Saturation ABG pH ABG pCO2 ABG pO2 ABG HCO3 ABG O2 Content ABG Base Excess ABG Methemoglobin Hemoglobin Carboxyhemoglobin O2 Delivery Device Vent Setting Inspired O2 Critical Value Sodium 154 H Potassium 3.3 L Chloride 120 H Carbon Dioxide 25.6 Anion Gap 8 BUN 27 H Creatinine 0.88 Estimated GFR 67 L POC Glucose 106 Random Glucose 107 H Calcium 8.2 L Phosphorus 3.8 Magnesium 2.2 Total Bilirubin 0.3 AST 28 ALT 22 Alkaline Phosphatase 46 Total Protein 6.2 L Albumin 1.8 L Urine Color Urine Clarity Urine pH Ur Specific [place] Urine Protein Urine Glucose (UA) Urine Ketones Urine Occult Blood Urine Nitrate Urine Bilirubin Urine Urobilinogen Ur Leukocyte Esterase Urine RBC Urine WBC Ur Squamous Epith Cells Urine Bacteria Hyaline Casts Urine Mucus Micro UA Comment Urine Culture Comments 12/24/17 12/24/17 11:13 12:00 WBC RBC Hgb Hct MCV MCH MCHC RDW Plt Count MPV Neut % (Auto) Lymph % (Auto) [place] % (Auto) Eos % (Auto) Baso % (Auto) Neut # (Auto) Lymph # (Auto) [place] # (Auto) Eos # (Auto) Baso # (Auto) WBC Differential Differential Comment Puncture Site Patient Temperature O2 Saturation ABG pH ABG pCO2 ABG pO2 ABG HCO3 ABG O2 Content ABG Base Excess ABG Methemoglobin Hemoglobin Carboxyhemoglobin O2 Delivery Device Vent Setting Inspired O2 Critical Value Sodium Potassium 4.0 Chloride Carbon Dioxide Anion Gap BUN Creatinine Estimated GFR POC Glucose 155 H Random Glucose Calcium Phosphorus Magnesium Total Bilirubin AST ALT Alkaline Phosphatase Total Protein Albumin Urine Color Urine Clarity Urine pH Ur Specific [place] Urine Protein Urine Glucose (UA) Urine Ketones Urine Occult Blood Urine Nitrate Urine Bilirubin Urine Urobilinogen Ur Leukocyte Esterase Urine RBC Urine WBC Ur Squamous Epith Cells Urine Bacteria Hyaline Casts Urine Mucus Micro UA Comment Urine Culture Comments Result Diagrams: 12/24/17 04:27 12/24/17 12:00 Microbiology: Microbiology 12/23/17 10:30 Gram Stain - Final Sputum - Oral Tracheal Aspirate Sputum Culture - Preliminary Moderate growth normal respiratory caio at 24 hours 12/23/17 10:32 Urine Culture - Preliminary Catheterized Urine Group D Enterococcus 12/23/17 13:14 Aerobic Blood Culture - Preliminary Blood - Peripheral No growth in 1 day Anaerobic Blood Culture - Preliminary No growth in 1 day 12/23/17 13:19 Aerobic Blood Culture - Preliminary Blood - Peripheral No growth in 1 day Anaerobic Blood Culture - Preliminary No growth in 1 day Imaging: Head CT 12/21/17 06:00 CONCLUSION: 1. Evolving hemorrhage in the left basal ganglia and left prior exam with mild midline shift. There is some surrounding edema. 2. Fluid in the paranasal sinuses. . Abdomen X-Ray 12/22/17 00:00 CONCLUSION: No evidence of bowel obstruction. Venous Doppler Study 12/23/17 00:00 CONCLUSION: Negative study. No venous thrombosis of either lower extremity. Chest X-Ray 12/24/17 06:00 CONCLUSION: Improved aeration right lower lobe otherwise able. Procedures: INTUBATION 12/14/17 Transfusion 12/18/17 Patient/Family Conference Present at Family Conference: With me was patient's Lorenzo, mother Aimee, and Aimee's sister. Family Conference Time: 55 Family Conference Location: Consult Room Issues Discussed: * Palliative care role, purpose, approach * Hospice care role, purpose, approach * At their request, we discussed the process of withdrawal of life support in the transition to a focus on comfort only. * Additional medical, psychosocial, and spiritual history * Patients general health, functional status, and cognitive changes in the months leading up to the current hospitalization * Patient/family understanding of the current medical problems * Patient/family understanding of prognosis * Patients goals of care as best understood from advance directives and/or conversations and/or values * Current medical treatment options and benefits/burdens of those options * Likely scenarios comparing ongoing aggressive care with a transition to comfort measures only * Questions answered to the best of my ability * Palliative care contact information provided Assessment and Plan - Disease Oriented Problem List (1) Basal ganglia hemorrhage (2) Hypertension Comment: Uncontrolled, hypertensive crisis at the time of admission (3) Respiratory failure requiring intubation - Symptom Scale (1) Dyspnea 0-10 Scale: Unable to quantify Comment: Mechanical ventilation (2) Pain 0-10 Scale: Unable to quantify Comment: No obvious signs of pain (3) Encephalopathy 0-10 Scale: Unable to quantify Pertinent Non-Medical Issues: Psychosocial: Born and raised in [place], has lived in this area for 23 years. for 23 years. Lives with who is a [employer] [facility] [employer] real estate paralegal. 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 They had 2 daughters, one reportedly of aspiration at the age of 20. The other daughter Manuela lives and works locally. Spiritual: Spirituality has been very important for the patient and her family, and they are supported by numerous [facility] pastors. The patient's is open to hospital power tool repair technician assistance. Legal: The patient lacks capacity for decision-making and she will not regain that capacity. The patient's Lorenzo is the HCP. Ethical issues impacting care: None Important Contacts: : Lorenzo Deleon Cell phone [phone] Patient's mother: Aimee Dietrich Prognosis: Her prognosis is very poor. She has had a large basal ganglia hemorrhage with profound neurologic effects. The family is considering a transition to comfort care with withdrawal of life support. Code Status: Alternative Code (Intubation only) Plan: * ALTERNATE CODE, intubation only per request of patient's and patient' s mother 12/24/17 * GOALS: The patient's , patient's mother, and patient's aunt all report that the patient had spoken with them in recent years about situations like this, and they are all certain that she would not want to be kept on life support for a prolonged period of time. They note that Dr. Cyr told them initially that "best case scenario" would be bedbound, 24 hour nursing care, and PEG tube, and they feel certain she would not want to live in that situation. They request Alternate code status at this time, and want to meet again tomorrow at 3 PM with additional family members here to have further discussions about the upcoming choices. * DECISION-MAKING: The patient lacks capacity for decision-making and she will not regain that capacity. The patient's Lorenzo is the HCP. * SYMPTOMS: No obvious pain. Dyspnea being managed by mechanical ventilation. Encephalopathy is profound and I have no medication recommendations at this time. * Supervisor [employer] contacted and will follow up with family. * Daughter and other family members and clergy will join us for a family meeting at 3 PM Sunday. There is a repeat CT scan scheduled for tomorrow prior to that meeting. * Palliative Care will continue to follow the patient during this hospitalization. Time Spent Total Floor Time (mins): 90 Face to Face Time (mins): 17 >50% Time in Counseling or Coordination of Care: Yes (d/w RN, Dr. Damico. ) Appreciation Thank you for the opportunity to participate in the care of Heidi Yvonne Deleon.
[2017-12-24] MEDS: Labetalol HCl Inj 100 MG/20 ML Vial IV.PUSH PRN (15:54)
[2017-12-24] MEDS ORDERED: Pharmacy Ordered Lab Info OTHER SCH (19:45)
[2017-12-24] MEDS: Propofol 1000 mg/100 ml Inj 1,000 MG/100 ML BOTTLE IV.CONT PRN (20:44)
[2017-12-24] MEDS: niCARdipine Inj 50 MG in Sodium Chlor 0.9% Inj 230 ML IV.CONT PRN (22:50)
[2017-12-25] MEDS: Piperacil/Tazo 4.5 GM Premix 4.5 GM/100 ML BAG IV.SIG SCH ×5 (00:57→23:11)
[2017-12-25] MEDS: Insulin NovoLOG Aspart Correctional Sugar Inj SQ SCH ×4 (00:57→18:50)
[2017-12-25] MEDS: niCARdipine Inj 50 MG in Sodium Chlor 0.9% Inj 230 ML IV.CONT PRN ×5 (03:36→23:12)
--- NOTE | 2017-12-25 04:33 | CT ---
EXAM DATE: 12/25/2017 4:28 AM EDT AGE/SEX: 52 years / Female INDICATIONS: Follow up bleed. CLINICAL DATA: This is the patient's subsequent encounter. Patient reports that signs and symptoms h ave been present for 2 weeks and indicates a pain score of Nonresponsive. MEDICAL/SURGICAL HISTORY: Hypertension. section. RADIATION DOSE: 56.35 CTDI (mGy) COMPARISON: [facility] [place], CT HEAD W/O CONTRAST, 12/21/2017. . TECHNIQUE: CT of the head without contrast. Using automated exposure control and adjustment of the mA and/or kV according to patient size, radiation dose was kept as low as reasonably achievable to ob tain optimal diagnostic quality images. DICOM format image data is available electronically for revi ew and comparison. FINDINGS: Reidentified is a hematoma in left frontal region measuring 4.8 x 2.4 cm in AP transverse dimension. There is surrounding edema, and mass effect on the left lateral ventricle and third ventricle. There is midline shift from left to right, approximately 4.6 mm. There are no new areas of hemorrhage seen. Mucosal thickening and air-fluid levels in the maxillary sinuses, left sphenoid sinus, and opacified ethmoid air cells, frontal sinuses and right sphenoid sinus. No fractures. CONCLUSION: 1. The left cerebral hematoma is slightly decreased in AP dimension. 2. Midline shift from left to right again noted. . Electronically signed by: Alex Baugh MD 12/25/2017 4:32 AM EDT
[2017-12-25 05:23] LABS: Hemoglobin 7.7 gm/dL (11.6-15.3); Mean Corpuscular HGB Conc 32.1 % (32.0-36.0); Mean Corpuscular Hemoglobin 23.1 pg (27.0-34.0); Platelet Count 285 th/mm3 (150-450); Red Blood Count 3.33 mil/mm3 (4.00-5.30); Red Cell Distribution Width 20.5 % (11.6-17.2); White Blood Count 6.1 th/mm3 (4.0-11.0)
[2017-12-25 05:46] LABS: Albumin 1.8 g/dL (3.4-5.0); Anion Gap 10 meq/L (5-15); Aspartate Aminotransferase 30 U/L (15-37); Blood Urea Nitrogen 24 mg/dL (7-18); Calcium 8.3 mg/dL (8.5-10.1); Carbon Dioxide 24.2 meq/L (21.0-32.0); Chloride 121 meq/L (98-107); Glomerular Filtration Rate 81 mL/min (>89); Glucose,Random 123 mg/dL (74-106); Potassium 3.4 meq/L (3.5-5.1); Sodium 155 meq/L (136-145)
[2017-12-25 05:47] LABS: Alanine Aminotransferase 25 U/L (10-53)
[2017-12-25 05:49] LABS: Alkaline Phosphatase 45 U/L (45-117); Total Protein 6.1 g/dL (6.4-8.2)
[2017-12-25] MEDS: Vancomycin Inj 1,000 MG in Sodium Chlor 0.9% Inj 250 ML IV.SIG SCH ×2 (05:53→15:56)
--- NOTE | 2017-12-25 07:44 | P.PNCC ---
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 She has been previously healthy otherwise but yesterday developed some right-sided weakness and difficulty finding words. On arrival to the emergency department she was crisis with systolic blood pressure greater than 220 and CAT scan of the head revealed a 3.9 cm left-sided parenchymal brain hemorrhage based in the basal ganglia. Blood pressure was immediately controlled with intravenous Cardene infusion and she was transferred to the intensive care unit for further evaluation. 12/15: Unable to protect her airway last night and required endotracheal intubation and mechanical ventilation. Blood pressure control has been acceptable with Cardene. Lengthy discussion with her at the bedside this morning. He states quite clearly that she would be opposed to long-term support with the ventilator. He understands that the short-term use is not in conflict with her wishes. 12/16: Enlarging bleed with vasogenic edema and mass effect. Remains ventilator dependent. 12/17: Afebrile. Remains hypertensive on nicardipine drip at 15 mg an hour. No cough or gag. Minimal withdrawal left upper extremity. 12/18: Remains intubated sedated remains very critical. Currently on 3% saline to maintain sodium close to 150. Neuro exam reveals localizing on the left upper extremity withdrawing bilateral lower extremity and also withdrawing right upper extremity 12/19: Remains intubated sedated, no acute events overnight. Sodium is 152 now. Restarted on Cardene infusion for uncontrolled hypertension. Neuro exam remains same. Continues to localize with left upper extremity withdraws all other extremities. Repeat EEG per Dr. Cyr 12/20 No significant change. Remains on sedation because desats, has shaking movements during sedation vacation. Dr. Cyr discussed poor prognosis with family today. Repeat CT brain ordered for tomorrow per Neurosurgery. EEG repeated yesterday - diffuse slowing of background consistent with moderately severe encephalopathic process. No epileptiform features. Remains Intubated and sedated on cardene drip. Sodium 154. 12/21: Resting in bed in no acute distress. Hemoglobin 6.2 this a.m. Requiring 1 unit PRBCs currently. Family at bedside. Repeat head CT brain pending 12/22: T-max 101.6. CT brain revealed 5.2 x 2.4 cm left basal ganglia hemorrhage with a 3 mm left to right shift. Neurologically unchanged. Tolerating tube feeds. No bowel movement since 12/17. SUBJECTIVE: 12/23: T-max 100.6. Currently 99.7. -2 L overnight. Positive BM yesterday. Remains sedated on midazolam drip and fentanyl drip. Remains intubated heavily sedated for blood pressure control. T-max 101.7. Pancultured yesterday pending. Neuro exam remains unchanged. Use Cardene for blood pressure control, start sedation vacation 12/24: Intermittent desaturation. Increase FiO2 to 55%, increase PEEP to 8, continue to hold sedation. Lasix 20 mg IV x1. Monitor closely and increase sedation if needed for vent synchrony 12/25: Clinically no improvement in neuro status remains unchanged. CT of the brain today essentially unchanged left basal ganglia bleed with 5 mm midline shift. Respiratory status worsening currently on 60% FiO2 PEEP increased to 10. Chest x-ray is pending at this time. Currently on vancomycin and Zosyn. Urine culture with group B enterococcus. Currently on Cardene infusion at 7.5 mg/h and propofol at 5 mcg/kg/min for uncontrolled hypertension and ventilator synchrony Objective Vital Signs / I&O: Vital Signs 12/24/17 08:00 12/24/17 08:02 12/24/17 10:00 Temperature 98.2 F Pulse Rate 72 72 72 Respiratory Rate 16 16 Blood Pressure 154/70 H Pulse Oximetry 95 94 L 12/24/17 11:15 12/24/17 12:00 12/24/17 14:00 Temperature 100.8 F H Pulse Rate 79 84 Respiratory Rate 16 16 Blood Pressure 133/64 Pulse Oximetry 95 92 L 12/24/17 15:28 12/24/17 16:00 12/24/17 18:00 Temperature 102.0 F H Pulse Rate 83 83 84 Respiratory Rate 16 16 Blood Pressure 163/69 H Pulse Oximetry 92 L 96 12/24/17 19:15 12/24/17 20:00 12/24/17 20:39 Temperature 100.4 F H Pulse Rate 86 88 Respiratory Rate 16 20 18 Blood Pressure 173/74 H Pulse Oximetry 96 96 12/24/17 22:00 12/24/17 22:25 12/25/17 00:00 Temperature 99.3 F Pulse Rate 70 67 Respiratory Rate 16 16 Blood Pressure 138/64 Pulse Oximetry 96 96 12/25/17 01:17 12/25/17 02:00 12/25/17 03:38 Temperature Pulse Rate 69 61 Respiratory Rate 16 16 Blood Pressure Pulse Oximetry 96 12/25/17 04:00 12/25/17 04:10 12/25/17 04:35 Temperature 98.8 F Pulse Rate 65 Respiratory Rate 16 19 Blood Pressure 136/60 Pulse Oximetry 98 100 97 12/25/17 06:00 Temperature Pulse Rate 62 Respiratory Rate Blood Pressure Pulse Oximetry Intake & Output 12/24/17 12/25/17 12/25/17 18:59 06:59 18:59 Intake Total 2156 / 2156 1793 / 1793 Output Total 2024 / 2024 1100 / 1100 Balance 131 / 131 693 / 693 Weight 102.3 kg Intake: IV 1116 / 1116 1150 / 1150 Versed Inj 50 mg In 50 ml @ 2 16 / 16 MG/HR 2 mls/hr IV.CONT TITRATE PRN Rx#:[id number] Diprivan 1000 mg/100 ml Inj 1, 100 / 100 000 mg In 100 ml @ 5 MCG/KG/MIN 2.822 mls/hr IV.CONT TITRATE PRN Rx#:[id number] Cardene Inj 50 MG In NS Inj 230 500 / 500 ML @ 5 MG/HR 25 mls/hr IV.CONT TITRATE PRN Rx#:[id number] Sodium Chloride 3% Inj 500 ML @ 500 / 500 10 mls/hr IV.SIG UNSCH PRN Rx# :[id number] Zosyn 4.5 GM Premix 4.5 gm In 100 / 100 300 / 300 100 ml @ 200 mls/hr IV.SIG Q6H JOAO Rx#:[id number] KCl 40 mEq Premix Inj 40 meq In 100 / 100 100 ml @ 50 mls/hr IV.SIG Q2H PRN Rx#:[id number] Vancomycin Inj 1,000 MG In NS 250 / 250 250 / 250 Inj 250 ML @ 250 mls/hr IV.SIG Q8H JOAO Rx#:[id number] fentaNYL 10 mcg/mL Premix Drip 150 / 150 2,500 mcg In 250 ml @ 50 MCG/HR 5 mls/hr IV.SIG TITRATE PRN Rx #:[id number] Tube Feeding 540 / 540 443 / 443 Tube Irrigant 300 / 300 200 / 200 Water Bolus Amount 200 / 200 Output: Urine 2024 Urine Amount (Catheter) 1100 / 1100 Indwelling Urethral Catheter 1100 / 1100 Other: Date of Last Bowel Movement 12/23/17 12/23/17 Result Diagrams: 12/25/17 05:00 12/25/17 05:00 Objective Remarks: GENERAL: Obese female who is orotracheally intubated. Unresponsive on the vent SKIN: Warm and dry. HEAD: Atraumatic. Normocephalic. EYES: Right pupil 2 mm reactive, left pupil 2 mm slight reaction. No scleral icterus. No injection or drainage. ENT: No nasal bleeding or discharge. Mucous membranes pink and moist. Orotracheally intubated NECK: Trachea midline. No JVD. CARDIOVASCULAR: Regular rate and rhythm. S1, S2. No S4. 2 out of 6 systolic murmur left lower sternal border. On Cardene gtt RESPIRATORY: Coarse breath sounds bilaterally. No wheezing. Symmetrical excursion. GASTROINTESTINAL: Abdomen soft, non-tender, nondistended. Hypoactive bowel sounds are appreciated MUSCULOSKELETAL: Extremities with trace bilateral lower extremity edema NEUROLOGICAL: No eye opening to deep noxious stimuli, extensor posturing BLE, + ve shaking/tremors. BUE slight withdrawal Assessment and Plan - Assessment and Plan Plan: Neuro/Psych: Acute left basal ganglia hemorrhagic CVA Encephalopathy CT brain 12/16 revealed evolving left basal ganglia IPH 4.8 x 2.2 cm with 6 mm left to right subfalcine herniation shift. Left lateral ventricle moderately effaced. Repeat CT brain 12/21 revealed 5.2 x 2.4 cm left basal ganglia hemorrhage with 3 mm left to right shift. CT 12/25:: Essentially unchanged or slightly decreased left basal ganglia hemorrhage with 5 mm midline shift Followed by neurosurgery/Dr. Cyr. Dr. Krueger covering today Goal keep sodium between 150-155. Currently sodium is 155 and 3% is at 10 cc an hour Levetiracetam 500 mg IV twice daily for seizure prophylaxis Acetaminophen 650 mg by tube every 6 hours as needed fever Use propofol and fentanyl if needed. Daily sedation Vacation EEG 12/19 diffuse slowing of background consistent with moderately severe encephalopathic processencephalopathy, no epileptiform activity CV: Hypertensive emergency Nicardipine infusion as needed for BP control, currently on 7.5 mg per hour As needed labetalol IV/clonidine OG On lisinopril 20 mg twice daily, amlodipine 10 mg daily. Carvedilol 25 mg twice daily, hydralazine 100 mg 3 times daily I was informed hydralazine is unavailable on 12/24/2017, patient placed on scheduled clonidine Resp: Acute hypoxemic respiratory failure PRVC 15/500/1.05/28/54. Increase PEEP to 10, FiO2 to 60% Ventilator bundle. Albuterol/ipratropium aerosols every 6 hours with albuterol aerosols every 2 hours as needed for dyspnea No spontaneous breathing trials due to severe hypoxemia, uncontrolled hypertension Follow-up chest x-ray today GI: Hypoalbuminemia Tube feeding with vital 1.5 High protein goal 50 cc an hour per nutrition recs. famotidine for GI prophylaxis Docusate sodium/senna 1 tablet twice daily for bowel regimen. Metoclopramide 5 mg 3 times daily Endo: Sliding scale insulin with aspart insulin/every 6 hours low regimen to maintain euglycemia Renal: Creatinine currently within normal limits Monitor urine output. Accurate I's and O's Maintain Trejo catheter for comfort Heme: Microcytic anemia Monitor CBC daily. Follow trend No indication for transfusion of blood products at this time. Received 2 units PRBCs 12/21 ID: Sepsis UTI with group D enterococcus Continue vancomycin and Zosyn Follow-up blood sputum culture. Urine culture growing group B enterococcus FEN: Hypernatremia, iatrogenic Replace electrolytes as clinically indicated Check sodiums every 6 hours. Goal 150-155 Access -Right subclavian CVL placed 12/15 #10 Prophylaxis -GI -famotidine -DVT -SCD/holding pharmacological prophylaxis status post left basal ganglia hemorrhage CCT 35 Patient remains critically ill with guarded prognosis with large left basal ganglia hemorrhage. No complicated with sepsis with UTI, severe worsening hypoxemic respiratory failure requiring high PEEP and high FiO2. Prognosis remains guarded now worse. Family meeting with palliative care today
--- NOTE | 2017-12-25 08:17 | XR ---
EXAM DATE: 12/25/2017 8:12 AM EDT AGE/SEX: 52 years / Female INDICATIONS: Evaluate for respiratory disease. CLINICAL DATA: This is the patient's subsequent encounter. Patient reports that signs and symptoms h ave been present for 2 weeks and indicates a pain score of Nonresponsive. MEDICAL/SURGICAL HISTORY: Hypertension. None. COMPARISON: 12/24/2017. FINDINGS: A single AP view of the chest demonstrates right basilar airspace disease. Heart enlarged. Endotrache al tube unchanged.. The cardiomediastinal contours are unremarkable. Osseous structures are intact. CONCLUSION: Increasing airspace disease right lower lobe Electronically signed by: Michael Peralta MD 12/25/2017 8:16 AM EDT
[2017-12-25] MEDS: Carvedilol 12.5 MG Tablet PO SCH ×2 (10:02→20:08)
[2017-12-25] MEDS: amLODIPine 10 MG Tablet PO SCH (10:02)
[2017-12-25] MEDS: Senna/Docusate Sodium 8.6/50 MG Tablet PO SCH ×2 (10:03→20:08)
[2017-12-25] MEDS: hydrALAZINE 25 MG Tablet PO SCH ×3 (10:03→17:57)
[2017-12-25] MEDS: Lisinopril 20 MG Tablet PO SCH ×2 (10:03→20:08)
[2017-12-25] MEDS: Famotidine 20 MG Tablet PO SCH ×2 (10:03→20:08)
[2017-12-25] MEDS: Hypromellose 0.3% Opth Gel 10 GM Bottle EACH EYE SCH ×2 (10:04→20:34)
[2017-12-25] MEDS: Labetalol HCl Inj 100 MG/20 ML Vial IV.PUSH PRN ×5 (11:40→23:13)
[2017-12-25] MEDS ORDERED: Pharmacy Ordered Lab Info OTHER ONE (11:45)
--- NOTE | 2017-12-25 11:47 | P.PNPAL ---
Reason for Visit Reason for visit: a. To assist with evaluation and management of symptoms including: Dyspnea, pain, encephalopathy b. To assist medical decision maker(s) with: better understanding of current medical conditions; weighing benefits/burdens of medical treatment options; making medical treatment decisions. Subjective Subjective/Interval History: INTERVAL NOTE: Patient seen in follow-up for evaluation of dyspnea, encephalopathy, and exploration of goals. Neurologically the patient remains about the same. I do see a fine tremor/ twitching of the left hand and forearm that I did not notice before. She is not responding to touch or verbal. Temp was 102 yesterday, 99 this morning. Her FiO2 is now turned up to 60%, and this morning's chest x-ray looks a little worse on the right. CT scan done today looks essentially unchanged to me, with hemorrhage, edema, midline shift. Family/Friend Interactions: As I see the patient this morning, the patient's and patient's mother are in the room, and we discussed her neurologic status, increasing oxygen needs , no change in prognosis. 3 PM meeting with spouse, daughter, patient's mother, patient's aunt, patient's cousin, and patient's whitewater rafting guide. See Plan. Advance Directives Living Will: Never completed Health Care Surrogate: Never completed Durable Power of Senior It Recruiter: Never completed Significant change in goals:: Family has made the decision to withdraw life support to allow natural , probably in the next day or 2. Objective Vital Signs: Vital Signs 12/24/17 12:00 12/24/17 14:00 12/24/17 15:28 Temperature 100.8 F H Pulse Rate 79 84 83 Respiratory Rate 16 16 Blood Pressure 133/64 Pulse Oximetry 92 L 92 L 12/24/17 16:00 12/24/17 18:00 12/24/17 19:15 Temperature 102.0 F H Pulse Rate 83 84 Respiratory Rate 16 16 Blood Pressure 163/69 H Pulse Oximetry 96 96 12/24/17 20:00 12/24/17 20:39 12/24/17 22:00 Temperature 100.4 F H Pulse Rate 86 88 70 Respiratory Rate 20 18 Blood Pressure 173/74 H Pulse Oximetry 96 12/24/17 22:25 12/25/17 00:00 12/25/17 01:17 Temperature 99.3 F Pulse Rate 67 Respiratory Rate 16 16 16 Blood Pressure 138/64 Pulse Oximetry 96 96 96 12/25/17 02:00 12/25/17 03:38 12/25/17 04:00 Temperature 98.8 F Pulse Rate 69 61 65 Respiratory Rate 16 16 Blood Pressure 136/60 Pulse Oximetry 98 12/25/17 04:10 12/25/17 04:35 12/25/17 06:00 Temperature Pulse Rate 62 Respiratory Rate 19 Blood Pressure Pulse Oximetry 100 97 12/25/17 08:00 12/25/17 08:32 12/25/17 11:31 Temperature 99 F Pulse Rate 70 74 Respiratory Rate 19 17 21 Blood Pressure 151/72 H Pulse Oximetry 93 L 95 98 Intake & Output 12/24/17 12/25/17 12/25/17 18:59 06:59 18:59 Intake Total 2156 / 2156 1793 / 1793 585 / 585 Output Total 2024 / 2024 1100 / 1100 Balance 131 / 131 693 / 693 585 / 585 Weight 102.3 kg Intake: IV 1116 / 1116 1150 / 1150 585 / 585 Versed Inj 50 mg In 50 ml @ 2 16 / 16 MG/HR 2 mls/hr IV.CONT TITRATE PRN Rx#:[id number] Diprivan 1000 mg/100 ml Inj 1, 100 / 100 85 / 85 000 mg In 100 ml @ 5 MCG/KG/MIN 2.822 mls/hr IV.CONT TITRATE PRN Rx#:[id number] Cardene Inj 50 MG In NS Inj 230 500 / 500 250 / 250 ML @ 5 MG/HR 25 mls/hr IV.CONT TITRATE PRN Rx#:[id number] Sodium Chloride 3% Inj 500 ML @ 500 / 500 10 mls/hr IV.SIG UNSCH PRN Rx# :[id number] Zosyn 4.5 GM Premix 4.5 gm In 100 / 100 300 / 300 100 ml @ 200 mls/hr IV.SIG Q6H JOAO Rx#:[id number] KCl 40 mEq Premix Inj 40 meq In 100 / 100 100 ml @ 50 mls/hr IV.SIG Q2H PRN Rx#:[id number] Vancomycin Inj 1,000 MG In NS 250 / 250 250 / 250 250 / 250 Inj 250 ML @ 250 mls/hr IV.SIG Q8H JOAO Rx#:[id number] fentaNYL 10 mcg/mL Premix Drip 150 / 150 2,500 mcg In 250 ml @ 50 MCG/HR 5 mls/hr IV.SIG TITRATE PRN Rx #:[id number] Tube Feeding 540 / 540 443 / 443 Tube Irrigant 300 / 300 200 / 200 Water Bolus Amount 200 / 200 Output: Urine 2024 Urine Amount (Catheter) 1100 / 1100 Indwelling Urethral Catheter 1100 / 1100 Other: Date of Last Bowel Movement 12/23/17 12/23/17 12/24/17 Physical Exam: CONSTITUTIONAL/GENERAL: This is an adequately nourished patient, in no apparent distress. EYES: Pupils equal and round and sluggishly reactive. No scleral icterus. CARDIOVASCULAR: Regular rate and rhythm without murmurs, gallops, or rubs. No JVD. Peripheral pulses symmetric. RESPIRATORY/CHEST: Symmetric, unlabored respirations. Clear to auscultation. Breath sounds equal bilaterally. No wheezes, rales, or rhonchi. GASTROINTESTINAL: Abdomen soft, non-tender, nondistended. No hepato-splenomegaly , or palpable masses. No guarding. Bowel sounds present. MUSCULOSKELETAL: Extremities without clubbing, cyanosis, or edema. No joint tenderness or effusion noted. No calf tenderness. No mottling or clubbing. NEUROLOGICAL: Obtunded, does not respond to voice, touch. She has a fine tremor and some twitching of the left hand and forearm. PSYCHIATRIC: Unable to assess due to clinical condition. Diagnostic Tests Laboratory: Laboratory Results - last 72 hr 12/22/17 12/22/17 12/22/17 12:00 13:06 18:00 WBC RBC Hgb Hct MCV MCH MCHC RDW Plt Count MPV Neut % (Auto) Lymph % (Auto) [place] % (Auto) Eos % (Auto) Baso % (Auto) Neut # (Auto) Lymph # (Auto) [place] # (Auto) Eos # (Auto) Baso # (Auto) WBC Differential Differential Comment Puncture Site Patient Temperature O2 Saturation ABG pH ABG pCO2 ABG pO2 ABG HCO3 ABG O2 Content ABG Base Excess ABG Methemoglobin Hemoglobin Carboxyhemoglobin O2 Delivery Device Vent Setting Inspired O2 Critical Value Sodium 152 H 152 H Potassium Chloride Carbon Dioxide Anion Gap BUN Creatinine Estimated GFR POC Glucose 125 H Random Glucose Calcium Phosphorus Magnesium Total Bilirubin AST ALT Alkaline Phosphatase Total Protein Albumin Urine Color Urine Clarity Urine pH Ur Specific [place] Urine Protein Urine Glucose (UA) Urine Ketones Urine Occult Blood Urine Nitrate Urine Bilirubin Urine Urobilinogen Ur Leukocyte Esterase Urine RBC Urine WBC Ur Squamous Epith Cells Urine Bacteria Hyaline Casts Urine Mucus Micro UA Comment Urine Culture Comments 12/22/17 12/22/17 12/23/17 18:11 22:47 02:42 WBC RBC Hgb Hct MCV MCH MCHC RDW Plt Count MPV Neut % (Auto) Lymph % (Auto) [place] % (Auto) Eos % (Auto) Baso % (Auto) Neut # (Auto) Lymph # (Auto) [place] # (Auto) Eos # (Auto) Baso # (Auto) WBC Differential Differential Comment Puncture Site Patient Temperature O2 Saturation ABG pH ABG pCO2 ABG pO2 ABG HCO3 ABG O2 Content ABG Base Excess ABG Methemoglobin Hemoglobin Carboxyhemoglobin O2 Delivery Device Vent Setting Inspired O2 Critical Value Sodium 153 H Potassium 3.7 Chloride 120 H Carbon Dioxide 27.0 Anion Gap 6 BUN 22 H Creatinine 0.65 Estimated GFR Greater than 89 POC Glucose 124 H 124 H Random Glucose 126 H Calcium 8.5 Phosphorus 3.2 Magnesium 2.3 Total Bilirubin AST ALT Alkaline Phosphatase Total Protein Albumin Urine Color Urine Clarity Urine pH Ur Specific [place] Urine Protein Urine Glucose (UA) Urine Ketones Urine Occult Blood Urine Nitrate Urine Bilirubin Urine Urobilinogen Ur Leukocyte Esterase Urine RBC Urine WBC Ur Squamous Epith Cells Urine Bacteria Hyaline Casts Urine Mucus Micro UA Comment Urine Culture Comments 12/23/17 12/23/17 12/23/17 02:42 06:45 10:32 WBC 8.4 RBC 3.64 L Hgb 8.3 L Hct 25.9 L MCV 71.0 L MCH 22.8 L MCHC 32.1 RDW 20.6 H Plt Count 300 MPV 7.5 Neut % (Auto) 75.1 H Lymph % (Auto) 13.5 [place] % (Auto) 8.8 H Eos % (Auto) 2.0 Baso % (Auto) 0.6 Neut # (Auto) 6.3 Lymph # (Auto) 1.1 [place] # (Auto) 0.7 Eos # (Auto) 0.2 Baso # (Auto) 0.1 WBC Differential . Differential Comment Auto diff final Puncture Site Art line Patient Temperature 98.6 O2 Saturation 90 ABG pH 7.44 H ABG pCO2 37 L ABG pO2 65 ABG HCO3 25 ABG O2 Content 11.3 L ABG Base Excess 0.9 ABG Methemoglobin 0.8 Hemoglobin 8.8 L Carboxyhemoglobin 1.3 O2 Delivery Device Ventilator Vent Setting 16/500/it1.1/8peep Inspired O2 50 Critical Value No Sodium Potassium Chloride Carbon Dioxide Anion Gap BUN Creatinine Estimated GFR POC Glucose Random Glucose Calcium Phosphorus Magnesium Total Bilirubin AST ALT Alkaline Phosphatase Total Protein Albumin Urine Color Yellow Urine Clarity Hazy H Urine pH 5.0 Ur Specific [place] 1.015 Urine Protein Negative Urine Glucose (UA) Negative Urine Ketones Negative Urine Occult Blood Negative Urine Nitrate Negative Urine Bilirubin Negative Urine Urobilinogen 2.0 H Ur Leukocyte Esterase Large H Urine RBC 10 H Urine WBC 57 H Ur Squamous Epith Cells 1 Urine Bacteria Rare H Hyaline Casts 4 Urine Mucus Few H Micro UA Comment Cath-culture ind Urine Culture Comments Cath-cult indicated 12/23/17 12/23/17 12/23/17 11:50 12:07 17:28 WBC RBC Hgb Hct MCV MCH MCHC RDW Plt Count MPV Neut % (Auto) Lymph % (Auto) [place] % (Auto) Eos % (Auto) Baso % (Auto) Neut # (Auto) Lymph # (Auto) [place] # (Auto) Eos # (Auto) Baso # (Auto) WBC Differential Differential Comment Puncture Site Patient Temperature O2 Saturation ABG pH ABG pCO2 ABG pO2 ABG HCO3 ABG O2 Content ABG Base Excess ABG Methemoglobin Hemoglobin Carboxyhemoglobin O2 Delivery Device Vent Setting Inspired O2 Critical Value Sodium 154 H Potassium Chloride Carbon Dioxide Anion Gap BUN Creatinine Estimated GFR POC Glucose 119 H 151 H Random Glucose Calcium Phosphorus Magnesium Total Bilirubin AST ALT Alkaline Phosphatase Total Protein Albumin Urine Color Urine Clarity Urine pH Ur Specific [place] Urine Protein Urine Glucose (UA) Urine Ketones Urine Occult Blood Urine Nitrate Urine Bilirubin Urine Urobilinogen Ur Leukocyte Esterase Urine RBC Urine WBC Ur Squamous Epith Cells Urine Bacteria Hyaline Casts Urine Mucus Micro UA Comment Urine Culture Comments 12/23/17 12/24/17 12/24/17 18:54 00:25 04:27 WBC RBC Hgb Hct MCV MCH MCHC RDW Plt Count MPV Neut % (Auto) Lymph % (Auto) [place] % (Auto) Eos % (Auto) Baso % (Auto) Neut # (Auto) Lymph # (Auto) [place] # (Auto) Eos # (Auto) Baso # (Auto) WBC Differential Differential Comment Puncture Site Patient Temperature O2 Saturation ABG pH ABG pCO2 ABG pO2 ABG HCO3 ABG O2 Content ABG Base Excess ABG Methemoglobin Hemoglobin Carboxyhemoglobin O2 Delivery Device Vent Setting Inspired O2 Critical Value Sodium 153 H 154 H Potassium 3.3 L Chloride 120 H Carbon Dioxide 25.6 Anion Gap 8 BUN 27 H Creatinine 0.88 Estimated GFR 67 L POC Glucose 106 Random Glucose 107 H Calcium 8.2 L Phosphorus 3.8 Magnesium 2.2 Total Bilirubin 0.3 AST 28 ALT 22 Alkaline Phosphatase 46 Total Protein 6.2 L Albumin 1.8 L Urine Color Urine Clarity Urine pH Ur Specific [place] Urine Protein Urine Glucose (UA) Urine Ketones Urine Occult Blood Urine Nitrate Urine Bilirubin Urine Urobilinogen Ur Leukocyte Esterase Urine RBC Urine WBC Ur Squamous Epith Cells Urine Bacteria Hyaline Casts Urine Mucus Micro UA Comment Urine Culture Comments 12/24/17 12/24/17 12/24/17 04:27 11:13 12:00 WBC 7.6 RBC 3.29 L Hgb 7.7 L Hct 23.5 L MCV 71.4 L MCH 23.5 L MCHC 32.9 RDW 20.7 H Plt Count 275 MPV 8.0 Neut % (Auto) 69.8 Lymph % (Auto) 18.3 [place] % (Auto) 7.5 Eos % (Auto) 3.9 Baso % (Auto) 0.5 Neut # (Auto) 5.3 Lymph # (Auto) 1.4 [place] # (Auto) 0.6 Eos # (Auto) 0.3 Baso # (Auto) 0.0 WBC Differential . Differential Comment Auto diff final Puncture Site Patient Temperature O2 Saturation ABG pH ABG pCO2 ABG pO2 ABG HCO3 ABG O2 Content ABG Base Excess ABG Methemoglobin Hemoglobin Carboxyhemoglobin O2 Delivery Device Vent Setting Inspired O2 Critical Value Sodium Potassium 4.0 Chloride Carbon Dioxide Anion Gap BUN Creatinine Estimated GFR POC Glucose 155 H Random Glucose Calcium Phosphorus Magnesium Total Bilirubin AST ALT Alkaline Phosphatase Total Protein Albumin Urine Color Urine Clarity Urine pH Ur Specific [place] Urine Protein Urine Glucose (UA) Urine Ketones Urine Occult Blood Urine Nitrate Urine Bilirubin Urine Urobilinogen Ur Leukocyte Esterase Urine RBC Urine WBC Ur Squamous Epith Cells Urine Bacteria Hyaline Casts Urine Mucus Micro UA Comment Urine Culture Comments 12/24/17 12/25/17 12/25/17 17:33 00:28 05:00 WBC 6.1 RBC 3.33 L Hgb 7.7 L Hct 24.0 L MCV 72.0 L MCH 23.1 L MCHC 32.1 RDW 20.5 H Plt Count 285 MPV 8.0 Neut % (Auto) Lymph % (Auto) [place] % (Auto) Eos % (Auto) Baso % (Auto) Neut # (Auto) Lymph # (Auto) [place] # (Auto) Eos # (Auto) Baso # (Auto) WBC Differential Differential Comment Puncture Site Patient Temperature O2 Saturation ABG pH ABG pCO2 ABG pO2 ABG HCO3 ABG O2 Content ABG Base Excess ABG Methemoglobin Hemoglobin Carboxyhemoglobin O2 Delivery Device Vent Setting Inspired O2 Critical Value Sodium Potassium Chloride Carbon Dioxide Anion Gap BUN Creatinine Estimated GFR POC Glucose 125 H 132 H Random Glucose Calcium Phosphorus Magnesium Total Bilirubin AST ALT Alkaline Phosphatase Total Protein Albumin Urine Color Urine Clarity Urine pH Ur Specific [place] Urine Protein Urine Glucose (UA) Urine Ketones Urine Occult Blood Urine Nitrate Urine Bilirubin Urine Urobilinogen Ur Leukocyte Esterase Urine RBC Urine WBC Ur Squamous Epith Cells Urine Bacteria Hyaline Casts Urine Mucus Micro UA Comment Urine Culture Comments 12/25/17 12/25/17 05:00 11:27 WBC RBC Hgb Hct MCV MCH MCHC RDW Plt Count MPV Neut % (Auto) Lymph % (Auto) [place] % (Auto) Eos % (Auto) Baso % (Auto) Neut # (Auto) Lymph # (Auto) [place] # (Auto) Eos # (Auto) Baso # (Auto) WBC Differential Differential Comment Puncture Site Patient Temperature O2 Saturation ABG pH ABG pCO2 ABG pO2 ABG HCO3 ABG O2 Content ABG Base Excess ABG Methemoglobin Hemoglobin Carboxyhemoglobin O2 Delivery Device Vent Setting Inspired O2 Critical Value Sodium 155 H Potassium 3.4 L Chloride 121 H Carbon Dioxide 24.2 Anion Gap 10 BUN 24 H Creatinine 0.75 Estimated GFR 81 L POC Glucose 123 H Random Glucose 123 H Calcium 8.3 L Phosphorus Magnesium Total Bilirubin 0.3 AST 30 ALT 25 Alkaline Phosphatase 45 Total Protein 6.1 L Albumin 1.8 L Urine Color Urine Clarity Urine pH Ur Specific [place] Urine Protein Urine Glucose (UA) Urine Ketones Urine Occult Blood Urine Nitrate Urine Bilirubin Urine Urobilinogen Ur Leukocyte Esterase Urine RBC Urine WBC Ur Squamous Epith Cells Urine Bacteria Hyaline Casts Urine Mucus Micro UA Comment Urine Culture Comments Result Diagrams: 12/25/17 05:00 12/25/17 05:00 Microbiology: Microbiology 12/23/17 13:14 Aerobic Blood Culture - Preliminary Blood - Peripheral No growth in 2 days Anaerobic Blood Culture - Preliminary No growth in 2 days 12/23/17 13:19 Aerobic Blood Culture - Preliminary Blood - Peripheral No growth in 2 days Anaerobic Blood Culture - Preliminary No growth in 2 days 12/23/17 10:30 Gram Stain - Final Sputum - Oral Tracheal Aspirate Sputum Culture - Preliminary Moderate growth normal respiratory caio at 24 hours 12/23/17 10:32 Urine Culture - Preliminary Catheterized Urine Group D Enterococcus Imaging: Abdomen X-Ray 12/22/17 00:00 CONCLUSION: No evidence of bowel obstruction. Venous Doppler Study 12/23/17 00:00 CONCLUSION: Negative study. No venous thrombosis of either lower extremity. Head CT 12/25/17 06:00 CONCLUSION: 1. The left cerebral hematoma is slightly decreased in AP dimension. 2. Midline shift from left to right again noted. . Chest X-Ray 12/25/17 07:33 CONCLUSION: Increasing airspace disease right lower lobe Procedures: INTUBATION 12/14/17 Transfusion 12/18/17 Assessment and Plan - Disease Oriented Problem List (1) Basal ganglia hemorrhage (2) Hypertension Comment: Uncontrolled, hypertensive crisis at the time of admission (3) Respiratory failure requiring intubation - Symptom Scale (1) Dyspnea Comment: Mechanical ventilation (2) Pain Comment: No obvious signs of pain Pertinent Non-Medical Issues: Psychosocial: Born and raised in [place], has lived in this area for 23 years. for 23 years. Lives with who is a Orthodox whitewater rafting guide. 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 They had 2 daughters, one reportedly of aspiration at the age of 20. The other daughter Manuela lives and works locally. Spiritual: Spirituality has been very important for the patient and her family, and they are supported by numerous [facility] past[facility]. The patient's is open to hospital arc cutter assistance. Legal: The patient lacks capacity for decision-making and she will not regain that capacity. The patient's Lorenzo is the HCP. Ethical issues impacting care: None Important Contacts: : Lorenzo Deleon Cell phone [phone] Patient's mother: Aimee Dietrich Prognosis: Her prognosis is very poor. She has had a large basal ganglia hemorrhage with profound neurologic effects. The family is considering a transition to comfort care with withdrawal of life support. Code Status: Alternative Code (Intubation only) Plan: * ALTERNATE CODE, intubation only per request of patient's and patient' s mother 12/24/17 * GOALS: All of the patient's family members have made the decision to transition to comfort care and withdraw life support to allow natural , probably in the next day or 2. They are talking amongst themselves to determine the timing... * Anticipatory guidance provided regarding the withdrawal process and the focus on comfort. * DECISION-MAKING: The patient lacks capacity for decision-making and she will not regain that capacity. The patient's Lorenzo is the HCP. * SYMPTOMS: No obvious pain. Dyspnea being managed by mechanical ventilation. Encephalopathy is profound and I have no medication recommendations at this time. * Palliative Care will continue to follow the patient during this hospitalization. Time Spent Total Floor Time (mins): 49 Face to Face Time (mins): 10 >50% Time in Counseling or Coordination of Care: Yes (d/w Dr. Damico and w RN) Attestation Attestation: To help prompt me to consider important information that might be impacting today's encounter and assessment, information from prior notes written by myself or my colleagues may have been "brought forward" into today's note. My signature on this note, however, is an attestation that I personally performed the exam, history, and/or decision-making noted today, and, unless otherwise indicated, the interactions with patient, family, and staff as well as the review of records all occurred today. I also attest that the listed assessment and stated plan reflect my best clinical judgment today based on the combination of historical information, prior notes, and today's exam/ interactions. When time spent is documented, it refers only to time spent today by the signer, or if indicated, combined time spent today by collaborating physician/nurse practitioner.
--- NOTE | 2017-12-25 11:51 | P.DIET ---
Nutritional Evaluation Type of nutrition evaluation: follow-up Nutrition consult regarding: Tube Feeding Screening comments: Assessed per SCCM and ASPEN guidelines for critically ill pts with a BMI >30. Objective - Diagnosis Hemorrhagic Stroke - Objective % IBW: 205 (IBW = 110#) Body Weight Used for Calculations: IBW (used 50 kg for protein needs), Actual ( used 95.9 kg for kcaloric needs) Energy Needs - Lower Range (kCal/kg): 11 Energy Needs - Upper Range (kCal/kg): 14 Lower Limit kCal/kg (kCals): 1,055 Upper Limit kCal/kg (kCals): 1,343 Lower Limit Protein Factor (Grams per Kg): 1.8 Upper Limit Protein Factor (Grams per Kg): 2.2 Lower Protein Needs (Protein): 90 Upper Protein Needs (Protein): 110 Dietitian Reviewed in Medical Record: Curent medications, Intake & Output, Labs , Medical history, Tube feeding Diet Order: TF Only Objective Comments: Meds: Fentanyl, Keppra, Reglan, Propofol (currently on hold) Labs: Na 155, K 3.4, AccuCheck 132 Feeding - Current Tube Feeding Tube Feeding Product: Vital High Protein Tube Feeding Method: Pump Tube Feeding Rate: 50 Current kCals Provided by Tube Feedin,200 Current Protein Provided by Tube Feeding (gPRO): 105 Current Free H2O Provided (m/l): 1,003 Assessment Assessment: Pt remains on mechanical ventilation. Palliative Care consult reviewed, family meeting schedule for today. Current TF is Vital High Protein @ 50mls/hr and this continues to remain appropriate. Wt increase noted, likely r/t fluid. Continue current POC. Dietitian following. Recommendations: Vital High Protein @ 50 mls/hr D/C Beneprotein whenTF is changed to RD recs. Pt will not need the additional protein. Dietitian to Monitor: Lab values, Intake & Output, Tube feeding tolerance, Weight change, Medical course
--- NOTE | 2017-12-25 22:48 | P.PNNS ---
Physical Exam Vital signs: Vital Signs 12/25/17 00:00 12/25/17 01:17 12/25/17 02:00 Temperature 99.3 F Pulse Rate 67 69 Respiratory Rate 16 16 Blood Pressure 138/64 Pulse Oximetry 96 96 12/25/17 03:38 12/25/17 04:00 12/25/17 04:10 Temperature 98.8 F Pulse Rate 61 65 Respiratory Rate 16 16 Blood Pressure 136/60 Pulse Oximetry 98 100 12/25/17 04:35 12/25/17 06:00 12/25/17 08:00 Temperature 99 F Pulse Rate 62 70 Respiratory Rate 19 19 Blood Pressure 151/72 H Pulse Oximetry 97 93 L 12/25/17 08:32 12/25/17 10:00 12/25/17 11:31 Temperature Pulse Rate 74 74 Respiratory Rate 17 21 Blood Pressure Pulse Oximetry 95 98 12/25/17 12:00 12/25/17 14:00 12/25/17 14:51 Temperature 100 F H Pulse Rate 72 74 Respiratory Rate 16 16 Blood Pressure 171/72 H Pulse Oximetry 98 98 12/25/17 16:00 12/25/17 18:00 12/25/17 19:35 Temperature 100 F H Pulse Rate 72 84 Respiratory Rate 16 16 Blood Pressure 162/75 H Pulse Oximetry 99 98 12/25/17 19:46 12/25/17 20:00 12/25/17 22:00 Temperature 100.2 F H Pulse Rate 75 85 77 Respiratory Rate 16 20 Blood Pressure 160/74 H Pulse Oximetry 100 12/25/17 22:25 Temperature Pulse Rate Respiratory Rate 16 Blood Pressure Pulse Oximetry 99 Intake & Output 12/25/17 12/25/17 12/26/17 06:59 18:59 06:59 Intake Total 1793 / 1793 1665 / 1665 Output Total 1100 / 1100 1950 / 1950 Balance 693 / 693 -285 / -285 Weight 102.3 kg Intake: IV 1150 / 1150 1285 / 1285 Diprivan 1000 mg/100 ml Inj 1, 100 / 100 85 / 85 000 mg In 100 ml @ 5 MCG/KG/MIN 2.822 mls/hr IV.CONT TITRATE PRN Rx#:[id number] Cardene Inj 50 MG In NS Inj 230 500 / 500 750 / 750 ML @ 5 MG/HR 25 mls/hr IV.CONT TITRATE PRN Rx#:[id number] Zosyn 4.5 GM Premix 4.5 gm In 300 / 300 200 / 200 100 ml @ 200 mls/hr IV.SIG Q6H JOAO Rx#:[id number] Vancomycin Inj 1,000 MG In NS 250 / 250 250 / 250 Inj 250 ML @ 250 mls/hr IV.SIG Q8H JOAO Rx#:[id number] Tube Feeding 443 / 443 140 / 140 Tube Irrigant 200 / 200 Water Bolus Amount 240 / 240 Output: Urine Amount (Catheter) 1100 / 1100 1949 / 1949 Indwelling Urethral Catheter 1100 / 1100 1949 / 1949 Other: Date of Last Bowel Movement 12/23/17 12/24/17 12/24/17 - Urinary Catheter Management Indwelling Urethral Catheter Cath placed during this visit: yes Reason for continuing: Terminally ill/Comfort care Insertion date: 12/14/17 Insertion time: 17:00 Assessment and Plan - Assessment (1) Hypertension Code(s): I10 - Essential (primary) hypertension Status: Acute (2) Intracranial hemorrhage Code(s): I62.9 - Nontraumatic intracranial hemorrhage, unspecified Status: Acute - Plan Impression: 52 y/o female Hypertensive crisis left basal ganglia hemorrhage This is a large bleed in her dominant hemisphere and a particularly worrisome spot and her prognosis is guarded A 318 CT scan head images reviewed by the undersigned and with the family in the intensive surgical care unit on 12/22/2017. Findings as follows: There is a 5.2 x 2.4 cm hemorrhage centered in the left basal ganglia with surrounding edema and some mass effect. There is about 3 mm of [id number] midline shift. Nasogastric tube is seen. There is fluid in the paranasal sinuses with mucosal thickening. No acute bony abnormalities. Plan: Family indicates they have decided to withdraw artificial support continue neuro checks, no surgical procedure is indicated at this time cont critical care management sedation weaning as tolerated and follow up neurological exam, cont keppra, EEG results reviewed
[2017-12-26] MEDS: niCARdipine Inj 50 MG in Sodium Chlor 0.9% Inj 230 ML IV.CONT PRN ×3 (02:33→11:55)
[2017-12-26] MEDS: Insulin NovoLOG Aspart Correctional Sugar Inj SQ SCH ×3 (02:45→13:42)
[2017-12-26] MEDS: Labetalol HCl Inj 100 MG/20 ML Vial IV.PUSH PRN (03:15)
[2017-12-26] MEDS: Piperacil/Tazo 4.5 GM Premix 4.5 GM/100 ML BAG IV.SIG SCH ×2 (05:19→13:20)
[2017-12-26 06:04] LABS: Hematocrit 23.9 % (35.0-46.0); Hemoglobin 7.7 gm/dL (11.6-15.3); Mean Corpuscular Hemoglobin 23.2 pg (27.0-34.0); Mean Corpuscular Volume 72.4 fL (80.0-100.0); Mean Platelet Volume 8.3 fL (7.0-11.0); Platelet Count 308 th/mm3 (150-450); Red Blood Count 3.31 mil/mm3 (4.00-5.30); Red Cell Distribution Width 20.8 % (11.6-17.2); White Blood Count 6.6 th/mm3 (4.0-11.0)
[2017-12-26 06:10] LABS: Anion Gap 11 meq/L (5-15); Aspartate Aminotransferase 34 U/L (15-37); Blood Urea Nitrogen 20 mg/dL (7-18); Calcium 8.2 mg/dL (8.5-10.1); Carbon Dioxide 22.1 meq/L (21.0-32.0); Chloride 121 meq/L (98-107); Glomerular Filtration Rate 83 mL/min (>89); Glucose,Random 128 mg/dL (74-106); Potassium 3.5 meq/L (3.5-5.1); Sodium 154 meq/L (136-145)
[2017-12-26 06:13] LABS: Alanine Aminotransferase 28 U/L (10-53); Alkaline Phosphatase 45 U/L (45-117); Total Protein 6.1 g/dL (6.4-8.2); Vancomycin,Random 6.3 Comment
--- NOTE | 2017-12-26 06:26 | XR ---
EXAM DATE: 12/26/2017 6:22 AM EDT AGE/SEX: 52 years / Female INDICATIONS: Shortness of breath. CLINICAL DATA: This is the patient's subsequent encounter. Patient reports that signs and symptoms h ave been present for 2 weeks and indicates a pain score of Nonresponsive. MEDICAL/SURGICAL HISTORY: Hypertension. None. COMPARISON: [facility] – [place] 1V SINGLE AP, 12/25/2017. . FINDINGS: Cardiomegaly and basilar airspace disease greatest at the left lower lobe, improved at the right base . Some segmental atelectasis right lung base. Right subclavian line, endotracheal tube and enteric tu be are identified. The side port of the enteric tube is at the expected location of the distal esopha halima. CONCLUSION: Improved aeration of the right lung. Electronically signed by: Alex Baugh MD 12/26/2017 6:25 AM EDT
[2017-12-26] MEDS: Lisinopril 20 MG Tablet PO SCH (08:47)
[2017-12-26] MEDS: hydrALAZINE 25 MG Tablet PO SCH ×2 (08:47→14:24)
[2017-12-26] MEDS: Famotidine 20 MG Tablet PO SCH (08:47)
[2017-12-26] MEDS: amLODIPine 10 MG Tablet PO SCH (08:47)
[2017-12-26] MEDS: Hypromellose 0.3% Opth Gel 10 GM Bottle EACH EYE SCH (08:47)
[2017-12-26] MEDS: Senna/Docusate Sodium 8.6/50 MG Tablet PO SCH (08:47)
[2017-12-26] MEDS: Carvedilol 12.5 MG Tablet PO SCH (08:47)
[2017-12-26] MEDS ORDERED: Bisacodyl 10 MG Supp RECTAL PRN (12:06)
[2017-12-26] MEDS ORDERED: Hyoscyamine Inj 0.5 MG/ML Ampul IV.PUSH ONE (12:06)
[2017-12-26] MEDS ORDERED: Morphine Sulfate Inj 8 MG/ML Vial IV.PUSH PRN (12:06)
[2017-12-26] MEDS ORDERED: Morphine Sulfate Inj 8 MG/ML Vial IV.PUSH ONE (12:06)
[2017-12-26] MEDS ORDERED: Acetaminophen 650 MG Supp RECTAL PRN (12:06)
[2017-12-26] MEDS ORDERED: Morphine Inj 4 MG/ML Vial IV.PUSH ONE (12:06)
[2017-12-26] MEDS ORDERED: Hyoscyamine Inj 0.5 MG/ML Ampul IV.PUSH PRN (12:06)
[2017-12-26] MEDS ORDERED: Morphine Inj 4 MG/ML Vial IV.PUSH PRN (12:06)
--- NOTE | 2017-12-26 12:22 | P.PNCC ---
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 She has been previously healthy otherwise but yesterday developed some right-sided weakness and difficulty finding words. On arrival to the emergency department she was crisis with systolic blood pressure greater than 220 and CAT scan of the head revealed a 3.9 cm left-sided parenchymal brain hemorrhage based in the basal ganglia. Blood pressure was immediately controlled with intravenous Cardene infusion and she was transferred to the intensive care unit for further evaluation. 12/15: Unable to protect her airway last night and required endotracheal intubation and mechanical ventilation. Blood pressure control has been acceptable with Cardene. Lengthy discussion with her at the bedside this morning. He states quite clearly that she would be opposed to long-term support with the ventilator. He understands that the short-term use is not in conflict with her wishes. 12/16: Enlarging bleed with vasogenic edema and mass effect. Remains ventilator dependent. 12/17: Afebrile. Remains hypertensive on nicardipine drip at 15 mg an hour. No cough or gag. Minimal withdrawal left upper extremity. 12/18: Remains intubated sedated remains very critical. Currently on 3% saline to maintain sodium close to 150. Neuro exam reveals localizing on the left upper extremity withdrawing bilateral lower extremity and also withdrawing right upper extremity 12/19: Remains intubated sedated, no acute events overnight. Sodium is 152 now. Restarted on Cardene infusion for uncontrolled hypertension. Neuro exam remains same. Continues to localize with left upper extremity withdraws all other extremities. Repeat EEG per Dr. Cyr 12/20 No significant change. Remains on sedation because desats, has shaking movements during sedation vacation. Dr. Cyr discussed poor prognosis with family today. Repeat CT brain ordered for tomorrow per Neurosurgery. EEG repeated yesterday - diffuse slowing of background consistent with moderately severe encephalopathic process. No epileptiform features. Remains Intubated and sedated on cardene drip. Sodium 154. 12/21: Resting in bed in no acute distress. Hemoglobin 6.2 this a.m. Requiring 1 unit PRBCs currently. Family at bedside. Repeat head CT brain pending 12/22: T-max 101.6. CT brain revealed 5.2 x 2.4 cm left basal ganglia hemorrhage with a 3 mm left to right shift. Neurologically unchanged. Tolerating tube feeds. No bowel movement since 12/17. SUBJECTIVE: 12/23: T-max 100.6. Currently 99.7. -2 L overnight. Positive BM yesterday. Remains sedated on midazolam drip and fentanyl drip. Remains intubated heavily sedated for blood pressure control. T-max 101.7. Pancultured yesterday pending. Neuro exam remains unchanged. Use Cardene for blood pressure control, start sedation vacation 12/24: Intermittent desaturation. Increase FiO2 to 55%, increase PEEP to 8, continue to hold sedation. Lasix 20 mg IV x1. Monitor closely and increase sedation if needed for vent synchrony 12/25: Clinically no improvement in neuro status remains unchanged. CT of the brain today essentially unchanged left basal ganglia bleed with 5 mm midline shift. Respiratory status worsening currently on 60% FiO2 PEEP increased to 10. Chest x-ray is pending at this time. Currently on vancomycin and Zosyn. Urine culture with group B enterococcus. Currently on Cardene infusion at 7.5 mg/h and propofol at 5 mcg/kg/min for uncontrolled hypertension and ventilator synchrony 12/26: No improvement in neuro status off sedation. Remains on Cardene infusion. Family planning on compassionate withdrawal of life support today. Objective Vital Signs / I&O: Vital Signs 12/25/17 14:00 12/25/17 14:51 12/25/17 16:00 Temperature 100 F H Pulse Rate 74 72 Respiratory Rate 16 16 Blood Pressure 162/75 H Pulse Oximetry 98 99 12/25/17 18:00 12/25/17 19:35 12/25/17 19:46 Temperature Pulse Rate 84 75 Respiratory Rate 16 16 Blood Pressure Pulse Oximetry 98 12/25/17 20:00 12/25/17 22:00 12/25/17 22:25 Temperature 100.2 F H Pulse Rate 85 77 Respiratory Rate 20 16 Blood Pressure 160/74 H Pulse Oximetry 100 99 12/26/17 00:00 12/26/17 00:16 12/26/17 01:21 Temperature 100 F H Pulse Rate 64 Respiratory Rate 16 16 16 Blood Pressure 145/65 H Pulse Oximetry 100 99 98 12/26/17 02:00 12/26/17 03:34 12/26/17 04:00 Temperature 100 F H Pulse Rate 80 65 68 Respiratory Rate 16 16 Blood Pressure 146/65 H Pulse Oximetry 100 12/26/17 04:01 12/26/17 06:00 12/26/17 07:57 Temperature Pulse Rate 75 Respiratory Rate 16 16 Blood Pressure Pulse Oximetry 100 98 12/26/17 09:04 12/26/17 12:11 Temperature Pulse Rate 70 Respiratory Rate 16 16 Blood Pressure Pulse Oximetry 99 Intake & Output 12/25/17 12/26/17 12/26/17 18:59 06:59 18:59 Intake Total 1665 / 1665 1182 / 1182 600 / 600 Output Total 1949 1300 / 1300 Balance -285 / -285 -118 / -118 600 / 600 Weight 104.3 kg Intake: IV 1285 / 1285 600 / 600 600 / 600 Diprivan 1000 mg/100 ml Inj 1, 85 / 85 000 mg In 100 ml @ 5 MCG/KG/MIN 2.822 mls/hr IV.CONT TITRATE PRN Rx#:[id number] Cardene Inj 50 MG In NS Inj 230 750 / 750 500 / 500 500 / 500 ML @ 5 MG/HR 25 mls/hr IV.CONT TITRATE PRN Rx#:[id number] Zosyn 4.5 GM Premix 4.5 gm In 200 / 200 100 / 100 100 / 100 100 ml @ 200 mls/hr IV.SIG Q6H JOAO Rx#:[id number] Vancomycin Inj 1,000 MG In NS 250 / 250 Inj 250 ML @ 250 mls/hr IV.SIG Q8H JOAO Rx#:[id number] Tube Feeding 140 / 140 462 / 462 Water Bolus Amount 240 / 240 120 / 120 Output: Urine Amount (Catheter) 1949 1300 / 1300 Indwelling Urethral Catheter 1949 1300 / 1300 Other: Date of Last Bowel Movement 12/24/17 12/26/17 # Incontinent Bowel Movements 1 Result Diagrams: 12/26/17 05:10 12/26/17 05:10 Objective Remarks: GENERAL: Obese female who is orotracheally intubated. Unresponsive on the vent SKIN: Warm and dry. HEAD: Atraumatic. Normocephalic. EYES: Right pupil 2 mm reactive, left pupil 2 mm slight reaction. No scleral icterus. No injection or drainage. ENT: No nasal bleeding or discharge. Mucous membranes pink and moist. Orotracheally intubated NECK: Trachea midline. No JVD. CARDIOVASCULAR: Regular rate and rhythm. S1, S2. No S4. 2 out of 6 systolic murmur left lower sternal border. On Cardene gtt RESPIRATORY: Coarse breath sounds bilaterally. No wheezing. Symmetrical excursion. GASTROINTESTINAL: Abdomen soft, non-tender, nondistended. Hypoactive bowel sounds are appreciated MUSCULOSKELETAL: Extremities with trace bilateral lower extremity edema NEUROLOGICAL: No eye opening to deep noxious stimuli, extensor posturing BLE. BUE slight withdrawal Assessment and Plan - Assessment and Plan Plan: Neuro/Psych: Acute left basal ganglia hemorrhagic CVA Encephalopathy CT brain 12/16 revealed evolving left basal ganglia IPH 4.8 x 2.2 cm with 6 mm left to right subfalcine herniation shift. Left lateral ventricle moderately effaced. Repeat CT brain 12/21 revealed 5.2 x 2.4 cm left basal ganglia hemorrhage with 3 mm left to right shift. CT 12/25: Essentially unchanged or slightly decreased left basal ganglia hemorrhage with 5 mm midline shift Followed by neurosurgery/Dr. Cyr. Dr. Krueger covering Goal keep sodium between 150-155. Currently sodium is 155 and 3% is at 10 cc an hour Levetiracetam 500 mg IV twice daily for seizure prophylaxis Acetaminophen 650 mg by tube every 6 hours as needed fever Use propofol and fentanyl if needed. Daily sedation Vacation. Currently remains off all sedation without any improvement in mental status EEG 12/19 diffuse slowing of background consistent with moderately severe encephalopathic processencephalopathy, no epileptiform activity CV: Hypertensive emergency Nicardipine infusion as needed for BP control, currently on 7.5 mg per hour As needed labetalol IV/clonidine OG On lisinopril 20 mg twice daily, amlodipine 10 mg daily. Carvedilol 25 mg twice daily, hydralazine 100 mg 3 times daily I was informed hydralazine is unavailable on 12/24/2017, patient placed on scheduled clonidine Resp: Acute hypoxemic respiratory failure PRVC AC PEEP 10, FiO2 to 60% Ventilator bundle. Albuterol/ipratropium aerosols every 6 hours with albuterol aerosols every 2 hours as needed for dyspnea No spontaneous breathing trials due to severe hypoxemia, uncontrolled hypertension Follow-up chest x-ray today GI: Hypoalbuminemia Tube feeding with vital 1.5 High protein goal 50 cc an hour per nutrition recs. famotidine for GI prophylaxis Docusate sodium/senna 1 tablet twice daily for bowel regimen. Metoclopramide 5 mg 3 times daily Endo: Sliding scale insulin with aspart insulin/every 6 hours low regimen to maintain euglycemia Renal: Creatinine currently within normal limits Monitor urine output. Accurate I's and O's Maintain Trejo catheter for comfort Heme: Microcytic anemia Monitor CBC daily. Follow trend No indication for transfusion of blood products at this time. Received 2 units PRBCs 12/21 ID: Sepsis UTI enterococcus Continue vancomycin and Zosyn Follow-up blood sputum culture. Urine culture growing group B enterococcus FEN: Hypernatremia, iatrogenic Replace electrolytes as clinically indicated Check sodiums every 6 hours. Goal 150-155 Access -Right subclavian CVL placed Prophylaxis -GI -famotidine -DVT -SCD/holding pharmacological prophylaxis status post left basal ganglia hemorrhage Level 2 Patient has had no clinical improvement during last 10 days or more. Family has decided for compassionate withdrawal of life support today and transition to comfort measures. Appreciate palliative care help
[2017-12-26] MEDS ORDERED: Vancomycin Inj 1,000 MG in Sodium Chlor 0.9% Inj 250 ML IV.SIG SCH (13:00)
--- NOTE | 2017-12-26 13:55 | P.PNPAL ---
Reason for Visit Reason for visit: a. To assist with evaluation and management of symptoms including: Dyspnea, pain, encephalopathy b. To assist medical decision maker(s) with: better understanding of current medical conditions; weighing benefits/burdens of medical treatment options; making medical treatment decisions. Subjective Subjective/Interval History: INTERVAL NOTE: Patient seen in follow-up for evaluation of dyspnea, encephalopathy, and exploration of goals. Neurologically the patient remains about the same. She is not responding to voice, touch, but does withdraw a little to pain. She reportedly had a little spontaneous eye opening earlier but not now.. Family has requested withdrawal of life support to allow natural beginning at 2 PM today. Family/Friend Interactions: Discussion at the bedside with patient's and aunt again today. The family has all come together and anticipates withdrawal to allow natural later today. Advance Directives Living Will: Never completed Health Care Surrogate: Never completed Durable Power of Anesthesiology Faculty: Never completed Significant change in goals:: Withdrawal of life support today Objective Vital Signs: Vital Signs 12/25/17 14:00 12/25/17 14:51 12/25/17 16:00 Temperature 100 F H Pulse Rate 74 72 Respiratory Rate 16 16 Blood Pressure 162/75 H Pulse Oximetry 98 99 12/25/17 18:00 12/25/17 19:35 12/25/17 19:46 Temperature Pulse Rate 84 75 Respiratory Rate 16 16 Blood Pressure Pulse Oximetry 98 12/25/17 20:00 12/25/17 22:00 12/25/17 22:25 Temperature 100.2 F H Pulse Rate 85 77 Respiratory Rate 20 16 Blood Pressure 160/74 H Pulse Oximetry 100 99 12/26/17 00:00 12/26/17 00:16 12/26/17 01:21 Temperature 100 F H Pulse Rate 64 Respiratory Rate 16 16 16 Blood Pressure 145/65 H Pulse Oximetry 100 99 98 12/26/17 02:00 12/26/17 03:34 12/26/17 04:00 Temperature 100 F H Pulse Rate 80 65 68 Respiratory Rate 16 16 Blood Pressure 146/65 H Pulse Oximetry 100 12/26/17 04:01 12/26/17 06:00 12/26/17 07:57 Temperature Pulse Rate 75 Respiratory Rate 16 16 Blood Pressure Pulse Oximetry 100 98 12/26/17 09:04 12/26/17 12:11 Temperature Pulse Rate 70 Respiratory Rate 16 16 Blood Pressure Pulse Oximetry 99 Intake & Output 12/25/17 12/26/17 12/26/17 18:59 06:59 18:59 Intake Total 1665 / 1665 1182 / 1182 600 / 600 Output Total 1949 1300 / 1300 Balance -285 / -285 -118 / -118 600 / 600 Weight 104.3 kg Intake: IV 1285 / 1285 600 / 600 600 / 600 Diprivan 1000 mg/100 ml Inj 1, 85 / 85 000 mg In 100 ml @ 5 MCG/KG/MIN 2.822 mls/hr IV.CONT TITRATE PRN Rx#:[id number] Cardene Inj 50 MG In NS Inj 230 750 / 750 500 / 500 500 / 500 ML @ 5 MG/HR 25 mls/hr IV.CONT TITRATE PRN Rx#:[id number] Zosyn 4.5 GM Premix 4.5 gm In 200 / 200 100 / 100 100 / 100 100 ml @ 200 mls/hr IV.SIG Q6H JOAO Rx#:[id number] Vancomycin Inj 1,000 MG In NS 250 / 250 Inj 250 ML @ 250 mls/hr IV.SIG Q8H JOAO Rx#:[id number] Tube Feeding 140 / 140 462 / 462 Water Bolus Amount 240 / 240 120 / 120 Output: Urine Amount (Catheter) 1949 1300 / 1300 Indwelling Urethral Catheter 1949 1300 / 1300 Other: Date of Last Bowel Movement 12/24/17 12/26/17 # Incontinent Bowel Movements 1 Physical Exam: CONSTITUTIONAL/GENERAL: This is an adequately nourished patient, in no apparent distress. EYES: Pupils equal and round and sluggishly reactive. No scleral icterus. CARDIOVASCULAR: Regular rate and rhythm without murmurs, gallops, or rubs. No JVD. Peripheral pulses symmetric. RESPIRATORY/CHEST: Symmetric, unlabored respirations. Clear to auscultation. Breath sounds equal bilaterally. No wheezes, rales, or rhonchi. GASTROINTESTINAL: Abdomen soft, non-tender, nondistended. No hepato-splenomegaly , or palpable masses. No guarding. Bowel sounds present. MUSCULOSKELETAL: Extremities without clubbing, cyanosis, or edema. No joint tenderness or effusion noted. No calf tenderness. No mottling or clubbing. NEUROLOGICAL: Obtunded, does not respond to voice, touch. PSYCHIATRIC: Unable to assess due to clinical condition. Diagnostic Tests Laboratory: Laboratory Results - last 72 hr 12/23/17 12/23/17 12/23/17 10:32 17:28 18:54 WBC RBC Hgb Hct MCV MCH MCHC RDW Plt Count MPV Neut % (Auto) Lymph % (Auto) Cowley % (Auto) Eos % (Auto) Baso % (Auto) Neut # (Auto) Lymph # (Auto) Cowley # (Auto) Eos # (Auto) Baso # (Auto) WBC Differential Differential Comment Sodium 153 H Potassium Chloride Carbon Dioxide Anion Gap BUN Creatinine Estimated GFR POC Glucose 151 H Random Glucose Calcium Phosphorus Magnesium Total Bilirubin AST ALT Alkaline Phosphatase Total Protein Albumin Urine Color Yellow Urine Clarity Hazy H Urine pH 5.0 Ur Specific [place] 1.015 Urine Protein Negative Urine Glucose (UA) Negative Urine Ketones Negative Urine Occult Blood Negative Urine Nitrate Negative Urine Bilirubin Negative Urine Urobilinogen 2.0 H Ur Leukocyte Esterase Large H Urine RBC 10 H Urine WBC 57 H Ur Squamous Epith Cells 1 Urine Bacteria Rare H Hyaline Casts 4 Urine Mucus Few H Micro UA Comment Cath-culture ind Urine Culture Comments Cath-cult indicated Vancomycin Trough Random Vancomycin 12/24/17 12/24/17 12/24/17 00:25 04:27 04:27 WBC 7.6 RBC 3.29 L Hgb 7.7 L Hct 23.5 L MCV 71.4 L MCH 23.5 L MCHC 32.9 RDW 20.7 H Plt Count 275 MPV 8.0 Neut % (Auto) 69.8 Lymph % (Auto) 18.3 Cowley % (Auto) 7.5 Eos % (Auto) 3.9 Baso % (Auto) 0.5 Neut # (Auto) 5.3 Lymph # (Auto) 1.4 Cowley # (Auto) 0.6 Eos # (Auto) 0.3 Baso # (Auto) 0.0 WBC Differential . Differential Comment Auto diff final Sodium 154 H Potassium 3.3 L Chloride 120 H Carbon Dioxide 25.6 Anion Gap 8 BUN 27 H Creatinine 0.88 Estimated GFR 67 L POC Glucose 106 Random Glucose 107 H Calcium 8.2 L Phosphorus 3.8 Magnesium 2.2 Total Bilirubin 0.3 AST 28 ALT 22 Alkaline Phosphatase 46 Total Protein 6.2 L Albumin 1.8 L Urine Color Urine Clarity Urine pH Ur Specific [place] Urine Protein Urine Glucose (UA) Urine Ketones Urine Occult Blood Urine Nitrate Urine Bilirubin Urine Urobilinogen Ur Leukocyte Esterase Urine RBC Urine WBC Ur Squamous Epith Cells Urine Bacteria Hyaline Casts Urine Mucus Micro UA Comment Urine Culture Comments Vancomycin Trough Random Vancomycin 12/24/17 12/24/17 12/24/17 11:13 12:00 17:33 WBC RBC Hgb Hct MCV MCH MCHC RDW Plt Count MPV Neut % (Auto) Lymph % (Auto) Cowley % (Auto) Eos % (Auto) Baso % (Auto) Neut # (Auto) Lymph # (Auto) Cowley # (Auto) Eos # (Auto) Baso # (Auto) WBC Differential Differential Comment Sodium Potassium 4.0 Chloride Carbon Dioxide Anion Gap BUN Creatinine Estimated GFR POC Glucose 155 H 125 H Random Glucose Calcium Phosphorus Magnesium Total Bilirubin AST ALT Alkaline Phosphatase Total Protein Albumin Urine Color Urine Clarity Urine pH Ur Specific [place] Urine Protein Urine Glucose (UA) Urine Ketones Urine Occult Blood Urine Nitrate Urine Bilirubin Urine Urobilinogen Ur Leukocyte Esterase Urine RBC Urine WBC Ur Squamous Epith Cells Urine Bacteria Hyaline Casts Urine Mucus Micro UA Comment Urine Culture Comments Vancomycin Trough Random Vancomycin 12/25/17 12/25/17 12/25/17 00:28 05:00 05:00 WBC 6.1 RBC 3.33 L Hgb 7.7 L Hct 24.0 L MCV 72.0 L MCH 23.1 L MCHC 32.1 RDW 20.5 H Plt Count 285 MPV 8.0 Neut % (Auto) Lymph % (Auto) Cowley % (Auto) Eos % (Auto) Baso % (Auto) Neut # (Auto) Lymph # (Auto) Cowley # (Auto) Eos # (Auto) Baso # (Auto) WBC Differential Differential Comment Sodium 155 H Potassium 3.4 L Chloride 121 H Carbon Dioxide 24.2 Anion Gap 10 BUN 24 H Creatinine 0.75 Estimated GFR 81 L POC Glucose 132 H Random Glucose 123 H Calcium 8.3 L Phosphorus Magnesium Total Bilirubin 0.3 AST 30 ALT 25 Alkaline Phosphatase 45 Total Protein 6.1 L Albumin 1.8 L Urine Color Urine Clarity Urine pH Ur Specific [place] Urine Protein Urine Glucose (UA) Urine Ketones Urine Occult Blood Urine Nitrate Urine Bilirubin Urine Urobilinogen Ur Leukocyte Esterase Urine RBC Urine WBC Ur Squamous Epith Cells Urine Bacteria Hyaline Casts Urine Mucus Micro UA Comment Urine Culture Comments Vancomycin Trough Random Vancomycin 12/25/17 12/25/1718 11:27 12:00 18:00 WBC RBC Hgb Hct MCV MCH MCHC RDW Plt Count MPV Neut % (Auto) Lymph % (Auto) Cowley % (Auto) Eos % (Auto) Baso % (Auto) Neut # (Auto) Lymph # (Auto) Cowley # (Auto) Eos # (Auto) Baso # (Auto) WBC Differential Differential Comment Sodium Potassium Chloride Carbon Dioxide Anion Gap BUN Creatinine Estimated GFR POC Glucose 123 H 130 H Random Glucose Calcium Phosphorus Magnesium Total Bilirubin AST ALT Alkaline Phosphatase Total Protein Albumin Urine Color Urine Clarity Urine pH Ur Specific [place] Urine Protein Urine Glucose (UA) Urine Ketones Urine Occult Blood Urine Nitrate Urine Bilirubin Urine Urobilinogen Ur Leukocyte Esterase Urine RBC Urine WBC Ur Squamous Epith Cells Urine Bacteria Hyaline Casts Urine Mucus Micro UA Comment Urine Culture Comments Vancomycin Trough 21.7 H Random Vancomycin 12/26/17 12/26/17 12/26/17 02:44 05:10 05:10 WBC 6.6 RBC 3.31 L Hgb 7.7 L Hct 23.9 L MCV 72.4 L MCH 23.2 L MCHC 32.0 RDW 20.8 H Plt Count 308 MPV 8.3 Neut % (Auto) Lymph % (Auto) Cowley % (Auto) Eos % (Auto) Baso % (Auto) Neut # (Auto) Lymph # (Auto) [place] # (Auto) Eos # (Auto) Baso # (Auto) WBC Differential Differential Comment Sodium 154 H Potassium 3.5 Chloride 121 H Carbon Dioxide 22.1 Anion Gap 11 BUN 20 H Creatinine 0.73 Estimated GFR 83 L POC Glucose 137 H Random Glucose 128 H Calcium 8.2 L Phosphorus Magnesium Total Bilirubin 0.3 AST 34 ALT 28 Alkaline Phosphatase 45 Total Protein 6.1 L Albumin 2.0 L Urine Color Urine Clarity Urine pH Ur Specific [place] Urine Protein Urine Glucose (UA) Urine Ketones Urine Occult Blood Urine Nitrate Urine Bilirubin Urine Urobilinogen Ur Leukocyte Esterase Urine RBC Urine WBC Ur Squamous Epith Cells Urine Bacteria Hyaline Casts Urine Mucus Micro UA Comment Urine Culture Comments Vancomycin Trough Random Vancomycin 6.3 Result Diagrams: 12/26/17 05:10 12/26/17 05:10 Microbiology: Microbiology 12/23/17 10:30 Gram Stain - Final Sputum - Oral Tracheal Aspirate Sputum Culture - Preliminary Haemophilus influenzae 12/23/17 13:14 Aerobic Blood Culture - Preliminary Blood - Peripheral No growth in 3 days Anaerobic Blood Culture - Preliminary No growth in 3 days 12/23/17 13:19 Aerobic Blood Culture - Preliminary Blood - Peripheral No growth in 3 days Anaerobic Blood Culture - Preliminary No growth in 3 days 12/23/17 10:32 Urine Culture - Final Catheterized Urine Enterococcus faecalis Imaging: Abdomen X-Ray 12/22/17 00:00 CONCLUSION: No evidence of bowel obstruction. Venous Doppler Study 12/23/17 00:00 CONCLUSION: Negative study. No venous thrombosis of either lower extremity. Head CT 12/25/17 06:00 CONCLUSION: 1. The left cerebral hematoma is slightly decreased in AP dimension. 2. Midline shift from left to right again noted. . Chest X-Ray 12/26/17 06:00 CONCLUSION: Improved aeration of the right lung. Procedures: INTUBATION 12/14/17 Transfusion 12/18/17 WITHDRAWAL of life support /ventilator 12/26/17 Assessment and Plan - Disease Oriented Problem List (1) Basal ganglia hemorrhage (2) Hypertension Comment: Uncontrolled, hypertensive crisis at the time of admission (3) Respiratory failure requiring intubation - Symptom Scale (1) Dyspnea Comment: Mechanical ventilation (2) Pain Comment: No obvious signs of pain Pertinent Non-Medical Issues: Psychosocial: Born and raised in [place], has lived in this area for 23 years. for 23 years. Lives with who is a [employer] [facility] terra cotta setter. 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 They had 2 daughters, one reportedly of aspiration at the age of 20. The other daughter Manuela lives and works locally. Spiritual: Spirituality has been very important for the patient and her family, and they are supported by numerous [facility] pastors. The patient's is open to hospital sourcing coordinator assistance. Legal: The patient lacks capacity for decision-making and she will not regain that capacity. The patient's Lorenzo is the HCP. Ethical issues impacting care: None Important Contacts: : Lorenzo Deleon Cell phone [phone] Patient's mother: Aimee Dietrich Prognosis: Her prognosis is very poor. She has had a large basal ganglia hemorrhage with profound neurologic effects. The family is requesting a transition to comfort care with withdrawal of life support. Code Status: Alternative Code (Intubation only) Plan: * ALTERNATE CODE, intubation only per request of patient's and patient' s mother 12/24/17 * GOALS: All of the patient's family members are asking for withdrawal of life support to allow natural today. If the patient breathes on her own and survives into tomorrow, we will consider engaging hospice services. * Orders written for compassionate withdrawal of ventilator/life support. * DECISION-MAKING: The patient lacks capacity for decision-making and she will not regain that capacity. The patient's Lorenzo is the HCP. * SYMPTOMS: No obvious pain. Dyspnea being managed by mechanical ventilation. Encephalopathy is profound and I have no medication recommendations at this time. * Palliative Care will continue to follow the patient during this hospitalization. Time Spent Total Floor Time (mins): 45 Face to Face Time (mins): 28 >50% Time in Counseling or Coordination of Care: Yes (d/w Dr. Damico and with RN) Attestation Attestation: To help prompt me to consider important information that might be impacting today's encounter and assessment, information from prior notes written by myself or my colleagues may have been "brought forward" into today's note. My signature on this note, however, is an attestation that I personally performed the exam, history, and/or decision-making noted today, and, unless otherwise indicated, the interactions with patient, family, and staff as well as the review of records all occurred today. I also attest that the listed assessment and stated plan reflect my best clinical judgment today based on the combination of historical information, prior notes, and today's exam/ interactions. When time spent is documented, it refers only to time spent today by the signer, or if indicated, combined time spent today by collaborating physician/nurse practitioner.
--- NOTE | 2017-12-26 15:18 | P.DN ---
Discharge Sum: Prov - Provider Primary care physician: Shantell Riley MD Admitting clinician: Juan J Hyde Attending physician on admission: Juan J Hyde Consults: 12/14/17 16:19 Consult to Neurology Stat Consulting Provider: Raghavendra Jeronimo For STAT consult, spoke directly to:: Bernard Reason for Consultation: stroke Notified:: Service Spoke with:: Carla Date Notified:: 12/14/17 Time Notified:: 16:26 Ordering Provider: PAUL 12/17/17 09:10 Consult to Neurosurgery Routine Consulting Provider: Trever Cyr Reason for Consultation: PLEASE ADD TO DR. CYR' LIST/DO NOT CALL/ALREADY CONSULTED. Spoke with:: added to list Date Notified:: 12/17/17 Time Notified:: 09:12 Comments:: per Dr Cyr request - ML Ordering Provider: JESSICA 12/24/17 09:37 Consult to Palliative Care Routine Consulting Provider: Sg Enriquez Reason for Consultation: Dominant hemisphere bleed with overall poor prognosis. 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 She has been previously healthy otherwise but yesterday developed some right-sided weakness and difficulty finding words. On arrival to the emergency department she was crisis with systolic blood pressure greater than 220 and CAT scan of the head revealed a 3.9 cm left-sided parenchymal brain hemorrhage based in the basal ganglia. Blood pressure was immediately controlled with intravenous Cardene infusion and she was transferred to the intensive care unit for further evaluation. 12/15: Unable to protect her airway last night and required endotracheal intubation and mechanical ventilation. Blood pressure control has been acceptable with Cardene. Lengthy discussion with her at the bedside this morning. He states quite clearly that she would be opposed to long-term support with the ventilator. He understands that the short-term use is not in conflict with her wishes. 12/16: Enlarging bleed with vasogenic edema and mass effect. Remains ventilator dependent. 12/17: Afebrile. Remains hypertensive on nicardipine drip at 15 mg an hour. No cough or gag. Minimal withdrawal left upper extremity. 12/18: Remains intubated sedated remains very critical. Currently on 3% saline to maintain sodium close to 150. Neuro exam reveals localizing on the left upper extremity withdrawing bilateral lower extremity and also withdrawing right upper extremity 12/19: Remains intubated sedated, no acute events overnight. Sodium is 152 now. Restarted on Cardene infusion for uncontrolled hypertension. Neuro exam remains same. Continues to localize with left upper extremity withdraws all other extremities. Repeat EEG per Dr. Cyr 12/20 No significant change. Remains on sedation because desats, has shaking movements during sedation vacation. Dr. Cyr discussed poor prognosis with family today. Repeat CT brain ordered for tomorrow per Neurosurgery. EEG repeated yesterday - diffuse slowing of background consistent with moderately severe encephalopathic process. No epileptiform features. Remains Intubated and sedated on cardene drip. Sodium 154. 12/21: Resting in bed in no acute distress. Hemoglobin 6.2 this a.m. Requiring 1 unit PRBCs currently. Family at bedside. Repeat head CT brain pending 12/22: T-max 101.6. CT brain revealed 5.2 x 2.4 cm left basal ganglia hemorrhage with a 3 mm left to right shift. Neurologically unchanged. Tolerating tube feeds. No bowel movement since 12/17. 12/23: T-max 100.6. Currently 99.7. -2 L overnight. Positive BM yesterday. Remains sedated on midazolam drip and fentanyl drip. Remains intubated heavily sedated for blood pressure control. T-max 101.7. Pancultured yesterday pending. Neuro exam remains unchanged. Use Cardene for blood pressure control, start sedation vacation 12/24: Intermittent desaturation. Increase FiO2 to 55%, increase PEEP to 8, continue to hold sedation. Lasix 20 mg IV x1. Monitor closely and increase sedation if needed for vent synchrony 12/25: Clinically no improvement in neuro status remains unchanged. CT of the brain today essentially unchanged left basal ganglia bleed with 5 mm midline shift. Respiratory status worsening currently on 60% FiO2 PEEP increased to 10. Chest x-ray is pending at this time. Currently on vancomycin and Zosyn. Urine culture with group B enterococcus. Currently on Cardene infusion at 7.5 mg/h and propofol at 5 mcg/kg/min for uncontrolled hypertension and ventilator synchrony 12/26: No improvement in neuro status off sedation. Remains on Cardene infusion. Family planning on compassionate withdrawal of life support today. Palliative care met with the family again and after premedication compassionate withdrawal of life support was carried out. An approximately 20-25 minutes patient comfortably with family at the bedside. Time of 1429 on 12/26/2017 Cause of : Cardiac arrest Final diagnosis Intracranial hemorrhage Severe encephalopathy Acute hypoxemic respiratory failure Severe sepsis UTI with enterococcus Healthcare associated pneumonia Uncontrolled hypertension - Additional Data Confirmation of as documented by pronouncing clinician: no pulse, no respirations, no heart sounds Family: at bedside Attending/PCP notified?: Yes Attending physician: Juan J Hyde MD Was code activated?: No
== END 2017-12-26 16:58 | disposition expired ==
LOC: NEPC 16:17 → NEDA 18:01 → N03 21:22
PROVIDERS: ADMIT Surgery Surgical Critical Care; ATTEND Surgery Surgical Critical Care